=== PATIENT | male | born 1935 | race Caucasian/White ===

== ENCOUNTER 2021-02-08 10:23 | Outpatient (CLI) | payer MEDICARE, BC, MEDICAID, SELFPAY ==
--- NOTE | ~2021-02-08 | MR_ITS ---
EXAMINATION: MR lumbar spine wo con EXAM DATE: 02/08/2021 12:07 INDICATION: Lumbar Radiculopathy. Chronic low back pain. TECHNIQUE: Multi-sequential, multiplanar MR images of the lumbar spine were obtained without contrast . Sagittal T1, T2, T2 fat saturation images. Axial T2 weighted images. There is no prior study for comparison. FINDINGS: There is mild to moderate thoracolumbar levoscoliosis. Paraspinal soft tissue is unremarkab le. Moderate diffuse lumbar disc disease. There is 3 mm anterolisthesis L5 on S1. There are no suspic ious marrow signal abnormalities. Level by level evaluation: T12-L1: Disc does not extend beyond the endplate margin. Facet arthropathy: Mild. Neural foraminal stenosis: No stenosis. Central canal stenosis: No stenosis. L1-L2: There is a mild diffuse disc bulge. Facet arthropathy: Mild. Neural foraminal stenosis: No stenosis. Central canal stenosis: No stenosis. L2-L3: There is a moderate diffuse disc bulge. Facet arthropathy: Moderate. Neural foraminal stenosis: Moderate right, mild left. Central canal stenosis: Mild to moderate, right lateral recess narrowing. L3-L4: There is a large diffuse disc bulge. Facet arthropathy: Severe . Ligamentum flavum enlargement. Neural foraminal stenosis: Moderate right, mild to moderate left. Central canal stenosis: Moderate to severe. L4-L5: There is a large diffuse disc bulge. Facet arthropathy: Severe . Ligamentum flavum enlargement. Neural foraminal stenosis: Moderate to severe left, moderate right. Central canal stenosis: Severe. L5-S1: There is a large diffuse disc bulge. Facet arthropathy: Severe left, moderate right. Neural foraminal stenosis: Moderate to severe left, mild to moderate right. Central canal stenosis: Moderate. IMPRESSION: 1. L4-5 severe, L3-4 moderate to severe central canal stenosis. 2. Mild/moderate thoracolumbar levoscoliosis. 3. Spondylosis as above. Reviewed, dictated and finalized at location A. IO RECEPTIONIST
== END 2021-02-08 10:24 | disposition home or self-care (01) ==
PROVIDERS: PCP Family Medicine; Visit Provider Nurse Practitioner Adult Health
DX: M47.26 Other spondylosis with radiculopathy, lumbar region (principal)
CPT/HCPCS: 72148

== ENCOUNTER 2021-02-16 14:31 | Emergency (ER) | payer MEDICARE, BC, MEDICAID, SELFPAY ==
--- NOTE | ~2021-02-16 | CT_ITS ---
EXAMINATION: CT brain wo con DATE: 02/16/2021 15:28 INDICATION: Head injury. Headache. TECHNIQUE: Computed tomography (CT) of the head was performed without intravenous contrast. The mA wa s adjusted according to patient size. Iterative reconstruction technique was employed. The dose-lengt h product was 605.33 mGy-cm. COMPARISON: None FINDINGS: There are scattered areas of low attenuation in the cerebral white matter, which is within normal limits for the patient's age. There is no intracranial hemorrhage, acute infarction, or abnorm al intracranial mass lesion. The ventricles are normal in size. There is mild mucosal thickening in t he paranasal sinuses. There are likely changes of ocular lens replacement surgeries. The mastoid air cells are normal. IMPRESSION: 1. Normal aging brain. Reviewed, dictated and finalized at location A. GER PRODUCT MARKETING IMPRESSION: 1. Normal aging brain.
--- NOTE | ~2021-02-16 | XR_ITS ---
EXAMINATION: XR ribs LT 2V w CXR 2V DATE: 02/16/2021 15:39 INDICATION: Fall. TECHNIQUE: Frontal and lateral views of the chest and 2 views on 3 radiographs of the left ribs were obtained. COMPARISON: None. FINDINGS: CHEST TWO VIEWS: Calcified left lung nodules are consistent with old granulomatous disease. No pleura l effusion or pneumothorax. The heart size is normal. LEFT RIBS: There are old healed fractures of left seventh-ninth ribs. IMPRESSION: 1. No acute rib fracture. Reviewed, dictated and finalized at location A. ER SORTER MACHINE IMPRESSION: 1. No acute rib fracture.
[2021-02-16 14:28] VITALS: BP 110/62; PULSE 69; RESP 17; TEMP 36.4; O2SAT 96
--- NOTE | 2021-02-16 16:25 | ED.GENADULT ---
HPI - General Adult General Chief complaint: Head Injury Stated complaint: FALL Time Seen by Provider: 02/16/21 14:34 Source: patient Mode of arrival: EMS Limitations: no limitations History of Present Illness HPI narrative: 85-year-old senior care resident with a history of dementia, chronic atrial fibrillation was brought in with complaints of fall. Patient states that he was trying to go to the bathroom after afternoon nap without his walker lost his balance and fell backwards. He denies any loss of consciousness. Complains of small laceration on the left side of the face. He denies any chest pain shortness of breath, palpitations prior to the fall. Onset (ago): minute(s) (45) Location: head Severity: mild Associated symptoms: denies other symptoms Related Data Home Medications Medication Instructions Recorded Confirmed apixaban 5 mg tablet 5 mg PO BID 01/15/21 01/15/21 aspirin 81 mg capsule 81 mg PO DAILY 01/15/21 01/15/21 atorvastatin 20 mg tablet 20 mg PO QHS 01/15/21 01/15/21 budesonide 0.5 mg/2 mL suspension 0.5 mg INHALATION DAILY 01/15/21 01/15/21 for nebulization carbidopa 25 mg-levodopa 100 mg 2 tablet PO QID tablet 01/15/21 01/15/21 tablet cetirizine 10 mg tablet 10 mg PO DAILY PRN 01/15/21 01/15/21 docusate sodium 100 mg capsule 100 mg PO BID 01/15/21 01/15/21 donepezil 5 mg tablet 5 mg PO BID tablet 01/15/21 01/15/21 fluticasone propionate 50 2 spray INTRANASAL DAILY PRN 01/15/21 01/15/21 mcg/actuation nasal spray,suspension furosemide 40 mg tablet 40 mg PO BID 01/15/21 01/15/21 ipratropium 0.5 mg-albuterol 3 mg 3 ml INHALATION Q6H PRN 01/15/21 01/15/21 (2.5 mg base)/3 mL nebulization soln levothyroxine 75 mcg tablet 75 mcg PO DAILY 01/15/21 01/15/21 mecobalamin (vitamin B12) 1,000 1,000 mcg SUBLINGUAL DAILY 01/15/21 01/15/21 mcg disintegrating tablet,sublingual metolazone 5 mg tablet 5 mg PO 3XW tablet 01/15/21 01/15/21 metoprolol tartrate 25 mg tablet 12.5 mg PO BID tablet 01/15/21 01/15/21 multivitamin 1 tablet PO DAILY 01/15/21 01/15/21 omeprazole 40 mg capsule,delayed 40 mg PO BID 01/15/21 01/15/21 release potassium chloride 10 mEq 10 meq PO DAILY 01/15/21 01/15/21 capsule,extended release pramipexole 0.125 mg tablet 0.125 mg PO QHS 01/15/21 01/15/21 sulfamethoxazole 800 1 tablet PO Q12H 01/15/21 01/15/21 mg-trimethoprim 160 mg tablet trazodone 50 mg tablet 50 mg PO QHS PRN 01/15/21 01/15/21 Allergies Allergy/AdvReac Type Severity Reaction Status Date / Time diphenhydramine Allergy Mild Unknown Verified 02/16/21 14:38 [From Benadryl] metoclopramide [From Reglan] Allergy Mild Unknown Verified 02/16/21 14:38 prochlorperazine Allergy Mild Unknown Verified 02/16/21 14:38 [From Compazine] terbinafine [From Lamisil] Allergy Mild Unknown Verified 02/16/21 14:38 Tetanus Vaccines and Toxoid Allergy Mild Unknown Verified 02/16/21 14:38 Review of Systems Review of Systems: All systems reviewed & are unremarkable except as noted in HPI and below Constitutional: Constitutional: Reports no additional constitutional complaints Eyes: Eyes: Reports no additional eye complaints ENT: Reports system reviewed and no additional complaints, except as documented Cardiovascular: Cardiovascular: Reports no additional cardiovascular complaints Respiratory: Respiratory: Reports no additional respiratory complaints Gastrointestinal: Gastrointestinal: Reports no additional gastrointestinal complaints Musculoskeletal: Musculoskeletal: Reports no additional musculoskeletal complaints Integumentary/Breasts: Skin/Breast: Reports system reviewed and no additional complaints, except as docu PMFSH Past Medical History Medical History Arthritis Atrial fibrillation Chronic back pain Chronic hypoxemic respiratory failure Congestive heart failure COPD (chronic obstructive pulmonary disease) Dementia Environmental allergies
[2021-02-16 17:06] VITALS: BP 124/84; PULSE 80; RESP 16; O2SAT 99
== END 2021-02-16 17:05 ==
PROVIDERS: Emergency Provider Family Medicine; PCP Family Medicine
DX: S09.90XA Unspecified injury of head, initial encounter (principal); S20.223A Contusion of bilateral back wall of thorax, initial encounter; M19.90 Unspecified osteoarthritis, unspecified site; I48.91 Unspecified atrial fibrillation; I50.9 Heart failure, unspecified; J44.9 Chronic obstructive pulmonary disease, unspecified; F03.90 Unspecified dementia, unspecified severity, without behavioral disturbance, psychotic disturbance, mood disturbance, and anxiety; K21.9 Gastro-esophageal reflux disease without esophagitis; I25.2 Old myocardial infarction; E78.5 Hyperlipidemia, unspecified; E03.9 Hypothyroidism, unspecified; Z91.81 History of falling; W01.0XXA Fall on same level from slipping, tripping and stumbling without subsequent striking against object, initial encounter
CPT/HCPCS: 70450; 71046; 71100; 99284

== ENCOUNTER 2021-02-18 08:55 | Outpatient (CLI) | payer MEDICARE, MEDICAID, SELFPAY ==
[2021-02-18 09:22] LABS: Basophils Absolute Auto 0.1 K/mm3 (0.0-0.1); Basophils Percent Auto 0.8 % (0.2-1.2); Eosinophils Absolute Auto 0.1 K/mm3 (0-0.3); Eosinophils Percent Auto 2.3 % (0-4.4); Hemoglobin 11.7 g/dL (14.0-18.0); Immature Granulocyte Absolute 0.02 K/mm3 (0.00-0.031); Immature Granulocyte Percent A 0.3 % (0-0.5); Lymphocytes Absolute Auto 1.55 K/mm3 (0.9-3.2); Lymphocytes Percent Auto 25.2 % (18.3-44.2); Mean Corpuscular HGB Conc 33.4 g/dl (32-36); Mean Corpuscular Hemoglobin 33.1 pg (26-34); Mean Corpuscular Volume 98.9 fl (80-100); Monocytes Absolute Auto 0.7 K/mm3 (0.1-0.6); Neutrophils Absolute Auto 3.7 K/mm3 (1.3-6.7); Neutrophils Percent Auto 59.4 % (45.5-73.1); Platelet Count Result 204 k/mm3 (150-375); Red Blood Count 3.54 M/mm3 (4.6-6.20); Red Cell Distribution Width 13.7 % (11.5-14.5); White Blood Count 6.2 K/mm3 (4.5-10.0)
[2021-02-18 09:31] LABS: Alanine Aminotransferase 6 U/L (4-50); Albumin Level 4.2 g/dL (3.5-5.1); Alkaline Phosphatase 96 U/L (38-126); Anion Gap 7 mmol/L (8-16); Aspartate Amino Transferase 31 U/L (17-59); Bilirubin,Total 0.5 mg/dL (0.2-1.3); Blood Urea Nitrogen 18 mg/dL (9-20); Calcium 9.4 mg/dL (8.4-10.2); Carbon Dioxide 33 mmol/L (22-30); Chloride 92 mmol/L (98-107); Cholesterol 130 mg/dL (0-200); Estimated Glomerular Filt Rate 48; Glucose 96 mg/dL (65-110); HDL Direct 65 mg/dL; Potassium 3.5 mmol/L (3.4-5.0); Sodium 132 mmol/L (137-145); Triglycerides 63 mg/dL (<150)
[2021-02-18 09:43] LABS: LDL Cholesterol Direct 38 mg/dL
[2021-02-18 09:55] LABS: Vitamin D 25 Hydroxy 17.9 ng/mL
[2021-02-18 11:41] LABS: Free T4 Free Thyroxine Reflex 1.16 ng/dL (0.78-2.19)
[2021-02-18 13:25] LABS: Total Triiodothyronine (T3) 1.01 NG/ML (0.97-1.69)
== END 2021-02-18 08:56 | disposition home or self-care (01) ==
PROVIDERS: PCP Family Medicine; Visit Provider Family Medicine
DX: E55.9 Vitamin D deficiency, unspecified (principal); E53.8 Deficiency of other specified B group vitamins; F03.90 Unspecified dementia, unspecified severity, without behavioral disturbance, psychotic disturbance, mood disturbance, and anxiety; G20 Parkinson's disease; I10 Essential (primary) hypertension; E78.5 Hyperlipidemia, unspecified
CPT/HCPCS: 36415; 80053; 80061; 82306; 82607; 84439; 84443; 84480; 85025

== ENCOUNTER 2021-03-07 09:36 | Emergency (ER) | payer MEDICARE, MEDICAID, SELFPAY ==
[2021-03-07] VITALS (21 sets, daily range): BP systolic 94–138; BP diastolic 51–99; PULSE 42–88; RESP 8–19; TEMP 36.4–36.6; O2SAT 95–100
--- NOTE | ~2021-03-07 | CT_ITS ---
EXAMINATION: CT brain wo con DATE: 03/07/2021 12:00 INDICATION: Confusion TECHNIQUE: Computed tomography (CT) of the head was performed without intravenous contrast. The mA wa s adjusted according to patient size. Iterative reconstruction technique was employed. Exam dose: 60 5.33 mGy-cm total exam DLP. COMPARISON: 02/16/2021 CT brain FINDINGS: Prominent bilateral carotid siphon internal carotid artery calcifications and mild left iraida tebral artery calcification are noted. There is nonspecific diminished attenuation cerebral white mat ter, likely due to chronic small vessel ischemic change. No intracranial mass lesion or hemorrhage or cerebrovascular accident is evident. No midline shift or mass effect effect. Normal ventricular size. No subdural or epidural hematoma. No fracture or bone destruction of the cranial vault. Small mucous retention cyst or less likely polyp at the anteromedial base of the right maxillary sinu s and very small probable mucus retention cyst along the medial wall of the left maxillary sinus, min imal mucoperiosteal thickening at the floor of the left maxillary sinus. The paranasal sinuses and ma stoid air cells are otherwise unremarkable. No fracture or bone destruction of the cranial vault. IMPRESSION: Cerebral atherosclerosis and chronic small vessel ischemic changes of cerebral white mat ter No acute intracranial finding Reviewed, dictated and finalized at Location A. Reviewed, dictated and finalized at location A. DENT RESPONSE MANAGER IMPRESSION: Cerebral atherosclerosis and chronic small vessel ischemic changes of cerebral white matter No acute intracranial finding
--- NOTE | ~2021-03-07 | XR_ITS ---
XR chest 1V portable DATE: 03/07/2021 11:07 INDICATION: Confusion TECHNIQUE: Portable upright AP chest on 03/03/2021 1055 hours COMPARISON: 02/16/2021 2 view chest FINDINGS: Cardiomegaly. Aortic calcification. There is evidence of old pulmonary granulomatous diseas e. There is minimal discoid atelectasis or scarring in the left midlung. No pulmonary consolidation, pleural effusion, pulmonary vascular congestion or pneumothorax is evident. Diffuse osteopenia. Resection of the lateral aspect of the left clavicle. IMPRESSION: Cardiomegaly Aortic atherosclerosis No active pulmonary disease Reviewed, dictated and finalized at location A. PREVENTION ENGINEER
--- NOTE | 2021-03-07 10:22 | ED.WEAKNESS ---
HPI - Weakness General Chief complaint: Weakness Stated complaint: possible uti Time Seen by Provider: 03/07/21 10:14 Source: patient and family Limitations: no limitations History of Present Illness HPI Narrative: Patient is 85 years old assisting living brought to the emergency room by his because of confusion over the last 2 to 3 days with unsteady gait. Patient had similar symptoms 2 weeks ago, had a diagnosis of urinary tract infection started on Cipro got better within 2 to 3 days. History of COPD on chronic oxygen 3 L. Patient is fully vaccinated and boosted for COVID-19. History of dementia. His believes that his dementia is worse over the last 2 to 3 days. Currently patient is awake, alert and oriented x3, denying any symptoms. History of COPD, parkinsonism, hyperlipidemia, patient does not smoke or drink or uses drugs, patient is full code, patient on Eliquis for deep vein thrombosis. Related Data Home Medications Medication Instructions Recorded Confirmed apixaban 5 mg tablet 5 mg PO BID 01/15/21 02/17/21 aspirin 81 mg capsule 81 mg PO DAILY 01/15/21 02/17/21 atorvastatin 20 mg tablet 20 mg PO QHS 01/15/21 02/17/21 budesonide 0.5 mg/2 mL suspension 0.5 mg INHALATION DAILY 01/15/21 02/17/21 for nebulization carbidopa 25 mg-levodopa 100 mg 2 tablet PO QID tablet 01/15/21 02/17/21 tablet cetirizine 10 mg tablet 10 mg PO DAILY PRN 01/15/21 02/17/21 docusate sodium 100 mg capsule 100 mg PO BID 01/15/21 02/17/21 donepezil 5 mg tablet 5 mg PO BID tablet 01/15/21 02/17/21 fluticasone propionate 50 2 spray INTRANASAL DAILY PRN 01/15/21 02/17/21 mcg/actuation nasal spray,suspension furosemide 40 mg tablet 40 mg PO BID 01/15/21 02/17/21 ipratropium 0.5 mg-albuterol 3 mg 3 ml INHALATION Q6H PRN 01/15/21 02/17/21 (2.5 mg base)/3 mL nebulization soln levothyroxine 75 mcg tablet 75 mcg PO DAILY 01/15/21 02/17/21 mecobalamin (vitamin B12) 1,000 1,000 mcg SUBLINGUAL DAILY 01/15/21 02/17/21 mcg disintegrating tablet,sublingual metoprolol tartrate 25 mg tablet 12.5 mg PO BID tablet 01/15/21 02/17/21 multivitamin 1 tablet PO DAILY 01/15/21 02/17/21 omeprazole 40 mg capsule,delayed 40 mg PO BID 01/15/21 02/17/21 release potassium chloride 10 mEq 10 meq PO DAILY 01/15/21 02/17/21 capsule,extended release pramipexole 0.125 mg tablet 0.125 mg PO QHS 01/15/21 02/17/21 sulfamethoxazole 800 1 tablet PO Q12H 01/15/21 02/17/21 mg-trimethoprim 160 mg tablet trazodone 50 mg tablet 50 mg PO QHS PRN 01/15/21 02/17/21 Allergies Allergy/AdvReac Type Severity Reaction Status Date / Time diphenhydramine Allergy Mild Unknown Verified 02/17/21 11:10 [From Benadryl] metoclopramide [From Reglan] Allergy Mild Unknown Verified 02/17/21 11:10 prochlorperazine Allergy Mild Unknown Verified 02/17/21 11:10 [From Compazine] terbinafine [From Lamisil] Allergy Mild Unknown Verified 02/17/21 11:10 Tetanus Vaccines and Toxoid Allergy Mild Unknown Verified 02/17/21 11:10 Review of Systems Review of Systems: CONSTITUTIONAL: Denies fever, chills, or sweats. EYES: Denies visual changes, redness, or discharge. ENT: Denies rhinorrhea, congestion, sore throat, or otalgia. CARDIOVASCULAR: Denies chest pain, palpitations, or edema. RESPIRATORY: Denies cough or dyspnea. GASTROINTESTINAL: Denies abdominal pain, nausea, vomiting, or diarrhea. GENITOURINARY: Denies dysuria or hematuria. SKIN: Denies rash or itching. MUSCULOSKELETAL: Denies back pain, joint pain, or myalgia. NEUROLOGIC: Denies headache, numbness, or weakness. PSYCHIATRIC: Denies anxiety or depression. [facility] Past Medical History Medical History Arthritis Atrial fibrillation Chronic back pain Chronic hypoxemic respiratory failure Congestive heart failure COPD (chronic obstructive pulmonary disease) Dementia Environmental allergies GERD (gastroesophageal reflux disease) Heart attack Hyperlipidemia Hypo
--- NOTE | 2021-03-07 10:29 | ECG_ITS ---
Measurements Intervals [place] Rate: 56 P: 207 ND: 178 QRS: -40 QRSD: 156 T: 12 QT: 485 QTc: 470 Interpretive Statements SINUS BRADYCARDIA WITH SINUS ARRHYTHMIA WITH FIRST DEGREE AV BLOCK LEFT AXIS DEVIATION RIGHT BUNDLE BRANCH BLOCK BASELINE ARTIFACT- I, II, III, AVR, AVL, AVF ABNORMAL ECG Electronically Signed On 03-07-2021 16:54:15 LAPELER by Stevo Cho D.O.
[2021-03-07 11:29] LABS: Base Excess ABG 6.6 mEq/l (+/-2.0); HCO3 ABG 32.1 mEq/l (22.0-26.0); PCO2 ABG 49.4 mmHg (35.0-45.0); PO2 ABG 130.5 mmHg (80.0-100.0)
[2021-03-07 11:30] LABS: Alveolar/Arterial O2 Gradient 39.9 mmHg; Oxygen Content ABG 17.3 %vol (16.0-22.0); Oxygen Saturation ABG 98.6 % (95.0-100.0); Total Hemoglobin 12.5 g/dL (12.0-18.0)
[2021-03-07 11:31] LABS: Device NASAL CANNULA; Fractional Inspired Oxygen 32 %; Modified Allen's Test Pass; PO2 FiO2 Ratio Arterial Blood 4.08 %; Site Drawn LEFT RADIAL
[2021-03-07 11:47] LABS: Add Urine Microscopic? YES; Appearance Urine Clear (Clear); Bilirubin Urine Negative (Negative); Blood Urine 1+ (Negative); Color Urine Yellow (Yellow); Glucose Urine UA Negative (Negative); Hyaline Casts Urine 20-29 /lpf; Ketones Urine Negative (Negative); Leukocyte Esterase Ur Negative LEU/UL (Negative); Mucus Urine Rare /lpf; Nitrate Urine Negative (Negative); Protein Urine Negative (Negative); Specific Grav Ur 1.012 (1.001-1.035); Squamous Epithelial Cell Urine Rare /hpf (Few); Urobilinogen Urine Negative mg/dL (<2.0); WBC Urine 0-3 /hpf
[2021-03-07 11:52] LABS: Basophils Absolute Auto 0.1 K/mm3 (0.0-0.1); Basophils Percent Auto 0.5 % (0.2-1.2); Eosinophils Absolute Auto 0.2 K/mm3 (0-0.3); Eosinophils Percent Auto 1.6 % (0-4.4); Hematocrit 36.9 % (42.0-52.0); Hemoglobin 12.2 g/dL (14.0-18.0); Immature Granulocyte Absolute 0.03 K/mm3 (0.00-0.031); Immature Granulocyte Percent A 0.3 % (0-0.5); Lymphocytes Absolute Auto 2.19 K/mm3 (0.9-3.2); Lymphocytes Percent Auto 21.6 % (18.3-44.2); Mean Corpuscular HGB Conc 33.1 g/dl (32-36); Mean Corpuscular Hemoglobin 32.9 pg (26-34); Mean Corpuscular Volume 99.5 fl (80-100); Mean Platelet Volume 9.7 fl (7.4-10.4); Monocytes Absolute Auto 0.9 K/mm3 (0.1-0.6); Monocytes Percent Auto 8.7 % (2.6-8.5); Neutrophils Absolute Auto 6.8 K/mm3 (1.3-6.7); Neutrophils Percent Auto 67.3 % (45.5-73.1); Platelet Count Result 213 k/mm3 (150-375); Red Blood Count 3.71 M/mm3 (4.6-6.20); Red Cell Distribution Width 14.3 % (11.5-14.5); White Blood Count 10.1 K/mm3 (4.5-10.0)
[2021-03-07 11:54] LABS: Glucose Point of Care 76 mg/dl (65-105)
[2021-03-07 12:00] LABS: INR 1.3; Prothrombin Time 15.6 Seconds (11.1-14.7)
[2021-03-07 12:01] LABS: Partial Thromboplastin Time 30.3 SECONDS (22.3-36.8)
[2021-03-07 12:03] LABS: Alanine Aminotransferase 6 U/L (4-50); Albumin Level 4.3 g/dL (3.5-5.1); Alkaline Phosphatase 98 U/L (38-126); Anion Gap 5 mmol/L (8-16); Aspartate Amino Transferase 31 U/L (17-59); Bilirubin,Total 0.6 mg/dL (0.2-1.3); Blood Urea Nitrogen 30 mg/dL (9-20); Calcium 9.8 mg/dL (8.4-10.2); Carbon Dioxide 37 mmol/L (22-30); Chloride 90 mmol/L (98-107); Estimated CRCL calculation 30 ml/min; Estimated Glomerular Filt Rate 41; Glucose 100 mg/dL (65-110); Potassium 3.7 mmol/L (3.4-5.0); Sodium 132 mmol/L (137-145)
[2021-03-07 12:14] LABS: Troponin I < 0.012 ng/mL (0.000-0.034)
== END 2021-03-07 13:50 | disposition home or self-care (01) ==
PROVIDERS: Emergency Provider Emergency Medicine; PCP Family Medicine
DX: R41.0 Disorientation, unspecified (principal); I48.91 Unspecified atrial fibrillation; I50.9 Heart failure, unspecified; J44.9 Chronic obstructive pulmonary disease, unspecified; F03.90 Unspecified dementia, unspecified severity, without behavioral disturbance, psychotic disturbance, mood disturbance, and anxiety; E78.5 Hyperlipidemia, unspecified; E03.9 Hypothyroidism, unspecified; Z79.82 Long term (current) use of aspirin
CPT/HCPCS: 36415; 36600; 51701; 70450; 71045; 80053; 81001; 82805; 82948; 84443; 84484; 85025; 85610; 85730; 93005; 99284; J7030

== ENCOUNTER 2021-03-11 13:57 | Inpatient (IN) | payer MEDICARE, MEDICAID, SELFPAY ==
[2021-03-11] VITALS (8 sets, daily range): BP systolic 71–128; BP diastolic 39–61; PULSE 40–82; RESP 16–21; TEMP 36.6; O2SAT 99–100
--- NOTE | ~2021-03-11 | XR_ITS ---
EXAMINATION: XR chest 1V portable INDICATION: COVID 19 TECHNIQUE: Portable AP chest at 1812 hours COMPARISON: 03/07/2021 FINDINGS: There are patchy opacities throughout all lung zones. No pleural effusion or pneumothorax i s identified. The cardiomediastinal silhouette is stable. Shortening of the left distal clavicle may reflect resection. IMPRESSION: 1. Diffuse lung disease, likely COVID 19 pneumonia given the clinical history. Reviewed, dictated and finalized at location F. FICIAL INTELLIGENCE SPECIALIST
--- NOTE | ~2021-03-11 | CT_ITS ---
EXAMINATION: CT abdomen pelvis w con DATE: 03/11/2021 16:31 INDICATION: Infection TECHNIQUE: Computed tomography (CT) of the abdomen and pelvis was performed with 100 mL Omnipaque-350 intravenous contrast. Automated exposure control and iterative reconstruction technique were employe d. The dose-length product was 1020.75 mGy-cm. COMPARISON: None FINDINGS: Mild streaky atelectasis along with more patchy groundglass opacities suspicious for aspiration or pn eumonia at the basilar aspect of the bilateral lower lobes. There is scattered mucous plugging involv ing multiple basilar bronchi of the lower lobes. Mild cardiomegaly. Lipomatous hypertrophy of the atr ial septum. Atherosclerotic coronary artery calcific location. No pericardial or pleural effusion. 1. 3 similar cyst in the left hepatic lobe. Small splenic desiccation consistent with old granulomatous disease. Gallbladder and bilateral adrenal glands are normal. Diffuse mild to moderate fatty atrophy of the pancreas. 5 mm nonobstructing stone at a lower pole calyx of the right kidney. 7 mm stone along the lateral mar gin of the distal right ureter, unclear whether this represents a nonobstructing ureteral stone or an d immediately adjacent phlebolith. A couple subcentimeter low-attenuation right renal cyst. Left kidn ey is horizontally oriented in the left hemipelvis with partially duplicated renal collecting system extending to a single left-sided ureter. There is also a triplicated vascular supply to the left kidn ey with an artery and vein supplying the more cephalad and left-sided moiety extending to the aorta a nd a retroaortic renal vein near the level of the right renal artery and vein and the more inferior a nd right-sided left renal moiety with a pair of renal arteries and veins, one each extending to the c audal aspect of the aorta and inferior vena cava as well as additional artery and veins extending to the left common iliac artery and vein. There is moderate colonic diverticulosis with a sigmoid predominance. There is no adjacent inflammat ory change to suggest diverticulitis. No bowel obstruction. Normal appendix. No free intraperitoneal gas or fluid. No pathologically enlarged abdominal or pelvic lymphadenopathy. Mild lumbar levoscolios is with moderate spondylosis. IMPRESSION: 1. Mucous plugging and mild patchy groundglass opacities in the bilateral lower lobes concerning for pneumonia. 2. 5 mm nonobstructing right renal stone and additional 7 mm calcification along one side of the dist almost right ureter. Is upper limits represents a nonobstructing ureteral stone within the ureter or a phlebolith immediately along side the ureter. 3. 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 4. Diverticulosis. Reviewed, dictated and finalized at location A. NG BOOKKEEPER IMPRESSION: 1. Mucous plugging and mild patchy groundglass opacities in the bilateral lower lobes concerning for pneumonia. 2. 5 mm nonobstructing right renal stone and additional 7 mm calcification lynn g one side of the distalmost right ureter. Is upper limits represents a nonobst ructing ureteral stone within the ureter or a phlebolith immediately along side the ureter. 3. Developmental anomaly of the left kidney which is positioned caudal in the l eft pelvis and with partially duplicated renal collecting system and triplicate d vascular supply. 4. Diverticulosis.
--- NOTE | ~2021-03-11 | CT_ITS ---
EXAMINATION: CT brain wo con DATE: 03/11/2021 14:38 INDICATION: Head injury. TECHNIQUE: Computed tomography (CT) of the head was performed without intravenous contrast. The mA wa s adjusted according to patient size. Iterative reconstruction technique was employed. The dose-lengt h product was 605.33 mGy-cm. COMPARISON: Head CT 03/07/2021 FINDINGS: There are scattered areas of low attenuation in the cerebral white matter, which is within normal limits for the patient's age. There is no intracranial hemorrhage, acute infarction, or abnorm al intracranial mass lesion. The ventricles are normal in size. 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 There is mild mucosal thickening in the paranasal sinuses. The mastoid air cells are normal. IMPRESSION: 1. Normal aging brain. Reviewed, dictated and finalized at location B. NISTRATIVE SERVICES MANAGER IMPRESSION: 1. Normal aging brain.
--- NOTE | 2021-03-11 14:01 | ECG_ITS ---
Measurements Intervals [place] Rate: 45 P: 29 SD: 198 QRS: -33 QRSD: 153 T: 2 QT: 427 QTc: 369 Interpretive Statements SINUS BRADYCARDIA LEFT AXIS DEVIATION BORDERLINE AV CONDUCTION DELAY RIGHT BUNDLE BRANCH BLOCK ABNORMAL ECG Electronically Signed On 03-11-2021 14:46:29 HISTORY INSTRUCTOR by Stevo Cho D.O.
[2021-03-11 14:19] LABS: Glucose Point of Care 106 mg/dl (65-105)
--- NOTE | 2021-03-11 14:21 | ED.GENADULT ---
HPI - General Adult General Chief complaint: Weakness Stated complaint: AMS,WEAKNESS Time Seen by Provider: 03/11/21 14:00 History of Present Illness HPI narrative: 85-year-old male with history of hyperlipidemia, GERD, hypothyroidism, COPD, chronic hypoxemia on 3 L of oxygen, CHF, atrial fibrillation, Parkinson's, dementia, UTI presents emerged department for evaluation of altered mental status. Patient lives at an assisted living with his , patient states he has felt weak over the last few days. This morning patient was walking to the cafeteria and became dizzy and lightheaded causing him to need assistance going to the ground. Patient states he did hit his head but denies any significant trauma. No martin or injuries from the fall are noted. Patient is taking Eliquis. On arrival to the [facility] patient was hypotensive but is alert and appropriate. Is vaccinated and boostered. Related Data Home Medications Medication Instructions Recorded Confirmed apixaban 5 mg tablet 5 mg PO BID 01/15/21 02/17/21 aspirin 81 mg capsule 81 mg PO DAILY 01/15/21 02/17/21 atorvastatin 20 mg tablet 20 mg PO QHS 01/15/21 02/17/21 budesonide 0.5 mg/2 mL suspension 0.5 mg INHALATION DAILY 01/15/21 02/17/21 for nebulization carbidopa 25 mg-levodopa 100 mg 2 tablet PO QID tablet 01/15/21 02/17/21 tablet cetirizine 10 mg tablet 10 mg PO DAILY PRN 01/15/21 02/17/21 docusate sodium 100 mg capsule 100 mg PO BID 01/15/21 02/17/21 donepezil 5 mg tablet 5 mg PO BID tablet 01/15/21 02/17/21 fluticasone propionate 50 2 spray INTRANASAL DAILY PRN 01/15/21 02/17/21 mcg/actuation nasal spray,suspension furosemide 40 mg tablet 40 mg PO BID 01/15/21 02/17/21 ipratropium 0.5 mg-albuterol 3 mg 3 ml INHALATION Q6H PRN 01/15/21 02/17/21 (2.5 mg base)/3 mL nebulization soln levothyroxine 75 mcg tablet 75 mcg PO DAILY 01/15/21 02/17/21 mecobalamin (vitamin B12) 1,000 1,000 mcg SUBLINGUAL DAILY 01/15/21 02/17/21 mcg disintegrating tablet,sublingual metoprolol tartrate 25 mg tablet 12.5 mg PO BID tablet 01/15/21 02/17/21 multivitamin 1 tablet PO DAILY 01/15/21 02/17/21 omeprazole 40 mg capsule,delayed 40 mg PO BID 01/15/21 02/17/21 release potassium chloride 10 mEq 10 meq PO DAILY 01/15/21 02/17/21 capsule,extended release pramipexole 0.125 mg tablet 0.125 mg PO QHS 01/15/21 02/17/21 sulfamethoxazole 800 1 tablet PO Q12H 01/15/21 02/17/21 mg-trimethoprim 160 mg tablet trazodone 50 mg tablet 50 mg PO QHS PRN 01/15/21 02/17/21 Allergies Allergy/AdvReac Type Severity Reaction Status Date / Time diphenhydramine Allergy Mild Unknown Verified 02/17/21 11:10 [From Benadryl] metoclopramide [From Reglan] Allergy Mild Unknown Verified 02/17/21 11:10 prochlorperazine Allergy Mild Unknown Verified 02/17/21 11:10 [From Compazine] terbinafine [From Lamisil] Allergy Mild Unknown Verified 02/17/21 11:10 Tetanus Vaccines and Toxoid Allergy Mild Unknown Verified 02/17/21 11:10 Review of Systems Review of Systems: CONSTITUTIONAL: Increased generalized weakness EYES: Denies visual changes, redness, or discharge. ENT: Denies rhinorrhea, congestion, sore throat, or otalgia. CARDIOVASCULAR: Denies chest pain, palpitations, or edema. RESPIRATORY: Denies cough or dyspnea. GASTROINTESTINAL: Denies abdominal pain, nausea, vomiting, or diarrhea. GENITOURINARY: Denies dysuria or hematuria. SKIN: Denies rash or itching. MUSCULOSKELETAL: Denies back pain, joint pain, or myalgia. NEUROLOGIC: Denies headache, numbness, or weakness. PSYCHIATRIC: Denies anxiety or depression. [facility] Past Medical History Medical History (Updated 03/11/21 @ 17:54 by Maverick Coffman MD) Arthritis Atrial fibrillation Chronic back pain Chronic hypoxemic respiratory failure Chronic kidney disease, stage 3b Chronic respiratory failure with hypoxia, on home O2 therapy Congestive heart failure COPD (chronic obstructive pulmonary disease) Dementia Environmental allergies
[2021-03-11 14:28] LABS: Basophils Absolute Auto 0.1 K/mm3 (0.0-0.1); Basophils Percent Auto 0.3 % (0.2-1.2); Hematocrit 33.8 % (42.0-52.0); Hemoglobin 11.3 g/dL (14.0-18.0); Immature Granulocyte Absolute 0.14 K/mm3 (0.00-0.031); Immature Granulocyte Percent A 0.8 % (0-0.5); Lymphocytes Absolute Auto 1.31 K/mm3 (0.9-3.2); Lymphocytes Percent Auto 7.2 % (18.3-44.2); Mean Corpuscular HGB Conc 33.4 g/dl (32-36); Mean Corpuscular Hemoglobin 33.6 pg (26-34); Mean Corpuscular Volume 100.6 fl (80-100); Mean Platelet Volume 10.1 fl (7.4-10.4); Monocytes Absolute Auto 2.5 K/mm3 (0.1-0.6); Monocytes Percent Auto 13.5 % (2.6-8.5); Neutrophils Absolute Auto 14.3 K/mm3 (1.3-6.7); Neutrophils Percent Auto 78.2 % (45.5-73.1); Platelet Count Result 178 k/mm3 (150-375); Red Blood Count 3.36 M/mm3 (4.6-6.20); Red Cell Distribution Width 14.5 % (11.5-14.5); White Blood Count 18.3 K/mm3 (4.5-10.0)
[2021-03-11 14:39] LABS: Alanine Aminotransferase 9 U/L (4-50); Albumin Level 3.8 g/dL (3.5-5.1); Alkaline Phosphatase 96 U/L (38-126); Anion Gap 9 mmol/L (8-16); Aspartate Amino Transferase 28 U/L (17-59); Blood Urea Nitrogen 35 mg/dL (9-20); Calcium 9.6 mg/dL (8.4-10.2); Carbon Dioxide 31 mmol/L (22-30); Chloride 96 mmol/L (98-107); Estimated CRCL calculation 32 ml/min; Estimated Glomerular Filt Rate 41; Glucose 127 mg/dL (65-110); Potassium 3.5 mmol/L (3.4-5.0); Sodium 136 mmol/L (137-145)
[2021-03-11 14:42] LABS: INR 1.5; Prothrombin Time 17.9 Seconds (11.1-14.7)
--- NOTE | 2021-03-11 14:52 | PC.NURSE ---
Patient bladder scanned at this time. Patient has 140MLs in bladder according to the scan. Will continue to monitor.
[2021-03-11 15:00] LABS: Troponin I 0.046 ng/mL (0.000-0.034)
[2021-03-11 16:06] LABS: Add Urine Microscopic? YES; Appearance Urine Clear (Clear); Bacteria Urine Trace /hpf; Bilirubin Urine Negative (Negative); Blood Urine Negative (Negative); Color Urine Yellow (Yellow); Glucose Urine UA Negative (Negative); Ketones Urine Negative (Negative); Leukocyte Esterase Ur 2+ LEU/UL (Negative); Mucus Urine Rare /lpf; Nitrate Urine Negative (Negative); Protein Urine Negative (Negative); Specific Grav Ur 1.006 (1.001-1.035); Squamous Epithelial Cell Urine Rare /hpf (Few); Urobilinogen Urine Negative mg/dL (<2.0); WBC Urine 51-75 /hpf
--- NOTE | 2021-03-11 17:03 | PM.IMHP ---
H&P: HPI History of Present Illness Date/Time: 03/11/21 17:03 Chief Complaint: Ground level fall Narrative: 85-year-old male with a past medical history of dementia, Parkinson's, chronic kidney disease, COPD, CHF, atrial fibrillation on Eliquis and chronic hypoxic respiratory failure who presented to the ER via EMS from assisted living after having a ground level fall. The patient reports that for the last several days he has been having intermittent episodes of confusion and increased weakness. He reports that today his was trying to get him to go down to the cafeteria for lunch and assisted living facility. He stated that he had a little bit of trouble standing up and then once he got up he was weak and lightheaded. He had only walked a few feet when he required assistance to be eased to the ground. He did hit his head but did not have any significant head trauma and denies any headaches. He came into the ER on the for the symptoms but his symptoms did not provide any direction as to cause of symptoms. The patient self reports that he has been having significant postnasal drip, rhinorrhea and nasal congestion. However, it sounds like the symptoms have been ongoing for about 6 weeks. The patient does have a history of dementia but is a fairly good historian is currently alert oriented x4. It sounds as if he has had intermittent episodes of coughing that can become protracted. However he denies any current coughing. The patient received a fluid bolus in route to the hospital at on arrival to the ER he was hypotensive. The patient received a bolus of fluid from EMS and had resolution of his hypotension. He denies any fevers, nausea, vomiting or changes in bowel habits. He does have chronic weak urinary stream and difficulty stopping his urinary stream at times. He denies any dysuria. He has pyuria and trace bacteria on his UA. His CT of his abdomen pelvis demonstrated pyuria with a right ureteral stone 7 mm nonobstructing. He denies any chest pain, palpitations, or shortness of breath. However his troponin was elevated in the ER were has been negative a few days ago. In the ER was noted to have occasional PVCs with episodes of bradycardia. He has fully vaccinated against COVID-19. However his chest x-ray demonstrated diffuse lung disease likely due to COVID pneumonia. The patient is fully vaccinated against COVID-19 and has had his booster. Review of Systems Review of Systems: 12 systems were reviewed with pertinent positives and negatives per HPI. Except as documented in the HPI, all other systems were reviewed and are negative. [facility] Past Medical History Medical History (Updated 03/12/21 @ 01:14 by Elsa Issa DO) Arthritis Atrial fibrillation Chronic back pain Chronic kidney disease, stage 3b Chronic respiratory failure with hypoxia, on home O2 therapy Congestive heart failure COPD (chronic obstructive pulmonary disease) Dementia Environmental allergies GERD (gastroesophageal reflux disease) Heart attack Hyperlipidemia Hypothyroidism Insomnia Parkinson disease Paroxysmal atrial fibrillation Restless leg syndrome Vitamin B12 deficiency B12 level normal 02/18/2021 Surgical History Surgical History (Updated 03/12/21 @ 01:12 by Elsa Issa DO) History of bilateral inguinal hernia repair History of colonoscopy with polypectomy History of repair of left rotator cuff History of repair of right rotator cuff History of total bilateral knee replacement Status post cataract extraction of both eyes with insertion of intraocular lens Family History Family History Mother Stomach cancer Father Alzheimer disease Sibling Diabetes mellitus Social History Social History (Updated 03/12/21 @ 01:14 by Elsa Issa DO) Social History: The patient lives at assisted living with his of 42 years. They have 1 son and 1 daughter. 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
[2021-03-11 17:26] LABS: EDCOVIDSCREEN Positive (Negative)
[2021-03-11] MEDS: REMDESIVIR 200 MG/NS 250 ML 200 MG/250 ML BAG 250 MG IVPB (18:15)
[2021-03-11 18:38] LABS: Troponin I 0.044 ng/mL (0.000-0.034)
[2021-03-11] MEDS: SODIUM CHLORIDE 0.9% IV 1,000 ML 100 ML IV CONT (20:39)
[2021-03-11 21:08] LABS: Troponin I 0.035 ng/mL (0.000-0.034)
--- NOTE | 2021-03-11 22:28 | PCRCNOTE ---
medication not available for therapist to give at 2000
--- NOTE | 2021-03-11 23:09 | PC.NURSE ---
rec'd pt into room 10 from room 22. report from nurse alan
[2021-03-12] VITALS (14 sets, daily range): BP systolic 100–128; BP diastolic 46–64; PULSE 62–80; RESP 15–20; TEMP 36.1–36.7; O2SAT 92–100; BMI 32.2
--- NOTE | 2021-03-12 06:02 | ADMGEN ---
This patient, Breezy Cisneros, was admitted to [facility] Surg Room 328-01. Patient/family oriented to hospital policies and general routines including ID bracelet, bed and alarms, visiting hours, pain management, procedures, bathroom and other care routines, personal items, smoking policy, room service/diet, and visiting hours. Information on how to activate the Rapid Response Team has been discussed. Patient/Family are encouraged to report perceived risks to care and to ask questions if they do not understand what they are told or what they should do.
[2021-03-12] MEDS: SODIUM CHLORIDE 0.9% IV 1,000 ML 100 ML IV CONT (06:20)
[2021-03-12 07:35] LABS: Basophils Percent Auto 0.1 % (0.2-1.2); Hematocrit 32.3 % (42.0-52.0); Hemoglobin 10.5 g/dL (14.0-18.0); Immature Granulocyte Absolute 0.15 K/mm3 (0.00-0.031); Lymphocytes Absolute Auto 1.41 K/mm3 (0.9-3.2); Lymphocytes Percent Auto 9.2 % (18.3-44.2); Mean Corpuscular HGB Conc 32.5 g/dl (32-36); Mean Corpuscular Hemoglobin 32.4 pg (26-34); Mean Corpuscular Volume 99.7 fl (80-100); Mean Platelet Volume 9.9 fl (7.4-10.4); Monocytes Absolute Auto 1.6 K/mm3 (0.1-0.6); Monocytes Percent Auto 10.2 % (2.6-8.5); Neutrophils Absolute Auto 12.2 K/mm3 (1.3-6.7); Neutrophils Percent Auto 79.5 % (45.5-73.1); Platelet Count Result 172 k/mm3 (150-375); Red Blood Count 3.24 M/mm3 (4.6-6.20); Red Cell Distribution Width 14.2 % (11.5-14.5); White Blood Count 15.4 K/mm3 (4.5-10.0)
[2021-03-12 07:44] LABS: INR 1.4; Prothrombin Time 17.2 Seconds (11.1-14.7)
[2021-03-12 07:52] LABS: Alanine Aminotransferase 19 U/L (4-50); Anion Gap 8 mmol/L (8-16); Blood Urea Nitrogen 28 mg/dL (9-20); Calcium 8.9 mg/dL (8.4-10.2); Carbon Dioxide 35 mmol/L (22-30); Chloride 95 mmol/L (98-107); Estimated CRCL calculation 42 ml/min; Estimated Glomerular Filt Rate 57; Glucose 138 mg/dL (65-110); Potassium 3.3 mmol/L (3.4-5.0); Sodium 138 mmol/L (137-145)
[2021-03-12] MEDS: POTASSIUM CHLORIDE 20 MEQ TABLET 40 MEQ PO (08:51)
--- NOTE | 2021-03-12 11:40 | PCRCNOTE ---
Window of time for administration has passed. See next scheduled administration.
--- NOTE | 2021-03-12 12:54 | PM.IMPN ---
Progress Note: A&P Assessment and Plan (1) Pneumonia due to COVID-19 virus: Code(s): U07.1 - COVID-19; J12.82 - Pneumonia due to coronavirus disease 2018 Status: Acute Assessment and Plan: +COVID-19. Vaccinated, complete CXR-->diffuse lung disease, likely COVID 19 pneumonia given the clinical history Chronic hypoxic respiratory failure and is on his usual home O Continue Decadron and Remdesivir Continue scheduled albuterol inhalers Could possibly have a secondary bacterial infection contributing to his leukocytosis, continue azithromycin for now Follow BC, SC Monitor Cr, liver enzymes (2) Bacteriuria with pyuria: Code(s): R82.71 - Bacteriuria; R82.81 - Pyuria Status: Acute Assessment and Plan: Leukocytosis 18.3-->15.4 Bacteriuria with pyuria He also has a nonobstructing kidney stone Continue empiric antibiotic therapy with Rocephin Follow cultures (3) Elevated troponin: Code(s): R77.8 - Other specified abnormalities of plasma proteins Status: Acute Assessment and Plan: 0.046-->0.044->0.35, flat trend Suspect 2/2 demand (4) Hypotension: Qualifiers: Hypotension type: other hypotension type Qualified Code(s): I95.89 - Other hypotension Code(s): I95.9 - Hypotension, unspecified Status: Acute (5) Fall from ground level: Code(s): W18.30XA - Fall on same level, unspecified, initial encounter Status: Acute (6) COPD (chronic obstructive pulmonary disease): Qualifiers: COPD type: unspecified COPD Qualified Code(s): J44.9 - Chronic obstructive pulmonary disease, unspecified Code(s): J44.9 - Chronic obstructive pulmonary disease, unspecified Status: Acute Assessment and Plan: No acute exacertbation Follow sputum culture (7) Chronic respiratory failure with hypoxia, on home O2 therapy: Code(s): J96.11 - Chronic respiratory failure with hypoxia; Z99.81 - Dependence on supplemental oxygen Status: Acute Assessment and Plan: On home O2 requirement Titrate to keep sats >92% (8) Hypokalemia: Code(s): E87.6 - Hypokalemia Status: Acute Assessment and Plan: Mild K+ 3.3 40 meq KCL given Monitor Additional Plan Code status: FULL DVT Ppx: Subjective Date/time seen: 03/12/21 12:54 Interval history: Pt seen this a.m.; labs, vs, diagnostic reports reviewed; no acute events overnight; +SOB, WRAY, generalized weakness Review of Systems Review of Systems: All systems reviewed & are unremarkable except as noted in HPI and below Exam Narrative: General: No acute distress, obese HEENT: Mucous membranes are dry, no oral pharyngeal erythema, EOMI Respiratory: No increased work of breathing Cardiovascular: Regular rate, regular rhythm, 2+ bilateral radial pedal pulses Gastrointestinal: Distended, normoactive bowel sounds Skin: Mild pallor, non jaundice Musculoskeletal: No clubbing, cyanosis or edema Neurological: Alert oriented x3, speech is clear, no facial asymmetry Psychiatric: Appropriate mood and affect, pleasant and cooperative Objective Data Vital Signs Vital Signs: Vital Signs - 24 hr 03/11/21 14:07 03/11/21 14:09 03/11/21 14:12 Temperature 36.6 C Pulse Rate 59 L 76 40 L Respiratory Rate 20 Blood Pressure 86/56 L 86/56 L 71/39 L Pulse Oximetry 100 03/11/21 15:00 03/11/21 16:53 03/11/21 18:48 Temperature Pulse Rate 68 82 77 Respiratory Rate 16 16 18 Blood Pressure 96/46 L 108/60 111/61 Pulse Oximetry 99 99 100 03/11/21 19:05 03/11/21 20:00 03/12/21 00:15 Temperature Pulse Rate 70 74 74 Respiratory Rate 21 H 17 Blood Pressure 128/57 L 107/61 Pulse Oximetry 100 98 03/12/21 02:35 03/12/21 03:00 03/12/21 04:00 Temperature 36.5 C Pulse Rate 74 67 66 Respiratory Rate 20 20 Blood Pressure 128/57 L 100/52 L Pulse Oximetry 100 98 100 03/12/21 08:00 03/12/21 08:03 03/12/21 08:30 Temperature 36.1 C
[2021-03-12] MEDS: ALBUTEROL SULFATE (*SP) INHALER 2 PUFF INHALATION ×2 (15:06→22:00)
[2021-03-12] MEDS: REMDESIVIR 100 MG/NS 250 ML 100 MG/250 ML BAG 250 MG IVPB (21:59)
[2021-03-12] MEDS: DORNASE ALFA INH SOLN 1 MG/ML 2.5 ML AMP 2.5 MG INHALATION (22:00)
[2021-03-13] VITALS (17 sets, daily range): BP systolic 108–128; BP diastolic 54–62; PULSE 61–87; RESP 17–20; TEMP 36.1–36.3; O2SAT 91–99
[2021-03-13] MEDS: ALBUTEROL SULFATE (*SP) INHALER 2 PUFF INHALATION ×3 (01:49→15:54)
[2021-03-13 02:21] LABS: SARS-CoV-2 RNA PCR Negative
[2021-03-13 08:28] LABS: Alanine Aminotransferase 38 U/L (4-50); Estimated CRCL calculation 49 ml/min; Estimated Glomerular Filt Rate > 60
[2021-03-13 08:46] LABS: INR 1.3; Prothrombin Time 16.4 Seconds (11.1-14.7)
--- NOTE | 2021-03-13 09:42 | PCOTNOTE ---
attempted to see pt. for OT eval. Pt. receiving breathing treatment from respiratory. Will return later.
[2021-03-13] MEDS: DORNASE ALFA INH SOLN 1 MG/ML 2.5 ML AMP 2.5 MG INHALATION (09:49)
[2021-03-13] MEDS: APIXABAN 5 MG TABLET PO ×2 (10:15→17:42)
[2021-03-13] MEDS: guaiFENesin 12 HR 600 MG TABCR 1200 MG PO ×2 (10:15→21:12)
[2021-03-13] MEDS: FLUTICASONE PROPIONATE 0.05% NA SPR 16 GM BTL (*BKC) 2 SPRAY NASAL (10:15)
[2021-03-13] MEDS: LEVOTHYROXINE SODIUM 75 MCG TABLET PO (10:15)
[2021-03-13] MEDS: MAGNESIUM OXIDE 400 MG TABLET PO (10:15)
[2021-03-13] MEDS: ATORVASTATIN 20 MG TABLET PO (10:16)
[2021-03-13] MEDS: PSYLLIUM POWDER PACKET 1 PACKET PO (10:16)
[2021-03-13] MEDS: CARBIDOPA/LEVODOPA 25/100 MG TABLET 2 TABLET PO ×4 (10:16→21:12)
[2021-03-13] MEDS: ASPIRIN 81 MG ENTERIC TABLET PO (10:16)
[2021-03-13] MEDS: CYANOCOBALAMIN 1,000 MCG TABLET 1000 MCG PO (10:16)
[2021-03-13] MEDS: FUROSEMIDE 40 MG TABLET PO ×2 (10:16→12:53)
[2021-03-13] MEDS: METOPROLOL TARTRATE 12.5 MG TABLET PO ×2 (10:17→21:12)
[2021-03-13] MEDS: PANTOPRAZOLE 40 MG TABLET PO (10:17)
[2021-03-13] MEDS: MULTIVITAMINS THERAPEUTIC TAB (*BKC) 1 TABLET PO (10:17)
[2021-03-13] MEDS: DOCUSATE SODIUM 100 MG CAPSULE PO ×2 (10:19→17:42)
--- NOTE | 2021-03-13 13:25 | PM.IMPN ---
Progress Note: A&P Assessment and Plan (1) UTI due to extended-spectrum beta lactamase (ESBL) producing Escherichia coli: Code(s): N39.0 - Urinary tract infection, site not specified; B96.29 - Other Escherichia coli [E. coli] as the cause of diseases classified elsewhere; Z16.12 - Extended spectrum beta lactamase (ESBL) resistance Status: Acute Assessment and Plan: -patient was on Rocephin and azithromycin for pneumonia however he likely has E coli is ESBL infection causing his symptoms -changing antibiotics to cefepime 2 g dose b.i.d. (2) Bacteremia due to Escherichia coli: Code(s): R78.81 - Bacteremia; B96.20 - Unspecified Escherichia coli [E. coli] as the cause of diseases classified elsewhere Status: Acute Assessment and Plan: E coli bacteremia and bacteriuria -antibiotics as above (3) Hypokalemia: Code(s): E87.6 - Hypokalemia Status: Acute Assessment and Plan: Potassium 3.3, will replete 40 mEq potassium chloride once (4) Hypotension: Qualifiers: Hypotension type: other hypotension type Qualified Code(s): I95.89 - Other hypotension Code(s): I95.9 - Hypotension, unspecified Status: Acute Assessment and Plan: Blood pressure normalized (5) Fall from ground level: Code(s): W18.30XA - Fall on same level, unspecified, initial encounter Status: Acute Assessment and Plan: Flat physical therapy evaluate patient. Patient likely fell from hypotension from ESBL E coli UTI and bacteremia (6) Parkinson disease: Code(s): G20 - Parkinson's disease Status: Acute Assessment and Plan: Continue home carbidopa levodopa -patient may have fallen from hypotension may be orthostatic from Parkinson's however more likely explanation is bacteremia causing hypotension (7) Restless leg syndrome: Code(s): G25.81 - Restless legs syndrome Status: Acute (8) GERD (gastroesophageal reflux disease): Qualifiers: Esophagitis presence: without esophagitis Qualified Code(s): K21.9 - Gastro-esophageal reflux disease without esophagitis Code(s): K21.9 - Gastro-esophageal reflux disease without esophagitis Status: Acute (9) Insomnia: Qualifiers: Insomnia type: unspecified Qualified Code(s): G47.00 - Insomnia, unspecified Code(s): G47.00 - Insomnia, unspecified Status: Acute Additional Plan # other chronic conditions -hyperlipidemia: Continue Lipitor, aspirin -dementia: Continue Aricept -chronic congestive heart failure: Continue Lasix 40 mg b.i.d., metolazone, metoprolol 12.5 mg q.12 -restless leg syndrome: Continue Mirapex -GERD: Continue Protonix b.i.d. Diet: Heart healthy DVT prophylaxis: Eliquis Code status: Full code Disposition: Antibiotics IV for ESBL E coli bacteremia Time Spent With Patient Time with patient: 25 - 35 minutes Subjective Date/time seen: 03/13/21 13:25 Patient seen examined. Has dementia and is a poor historian. Discussed with over the phone. She would like to stay with him because he gets significant sundowning with his dementia however I do not think we can accommodate. Patient's COVID-19 test IgG positive and PCR is negative. With positive IgG was started on remdesivir and Decadron. It appears that this is likely an older infection and he is off isolation, stopping remdesivir. He is getting bradycardic from Decadron as well, stopping Decadron. At this time he does not have active COVID-19 that we need to treat. His blood cultures are growing E coli. This: Bacteremia diagnosis will stop azithromycin as he does not have a pneumonia. Will treat him with 2 g Rocephin for bacteremia. Continue physical therapy. Patient denies fever, chills nausea diarrhea, chest pain, shortness for breath, he has significant dementia. Review of Systems Review of Systems: All systems reviewed & are unremarkable except as noted in HPI and below
[2021-03-13] MEDS: POTASSIUM CHLORIDE 20 MEQ PACKET (FOR LIQUID) 40 MEQ PO (15:24)
[2021-03-13] MEDS: traZODone HCL 25 MG TABLET PO (21:12)
[2021-03-13] MEDS: DONEPEZIL HCL 5 MG TABLET 10 MG PO (21:12)
[2021-03-14] VITALS (11 sets, daily range): BP systolic 116–160; BP diastolic 60–66; PULSE 59–88; RESP 14–20; TEMP 36.3–36.6; O2SAT 95–98
[2021-03-14] MEDS: PRAMIPEXOLE 0.125 MG TABLET PO ×2 (00:45→21:23)
[2021-03-14] MEDS: PANTOPRAZOLE 40 MG TABLET PO ×3 (00:45→21:44)
[2021-03-14 06:58] LABS: Hematocrit 34.9 % (42.0-52.0); Hemoglobin 11.8 g/dL (14.0-18.0); Mean Corpuscular HGB Conc 33.8 g/dl (32-36); Mean Corpuscular Hemoglobin 33.4 pg (26-34); Mean Corpuscular Volume 98.9 fl (80-100); Platelet Count Result 200 k/mm3 (150-375); Red Blood Count 3.53 M/mm3 (4.6-6.20); Red Cell Distribution Width 13.9 % (11.5-14.5); White Blood Count 15.1 K/mm3 (4.5-10.0)
[2021-03-14] MEDS: LEVOTHYROXINE SODIUM 75 MCG TABLET PO (07:02)
[2021-03-14 07:15] LABS: Anion Gap 6 mmol/L (8-16); Blood Urea Nitrogen 27 mg/dL (9-20); Calcium 9.3 mg/dL (8.4-10.2); Carbon Dioxide 33 mmol/L (22-30); Chloride 96 mmol/L (98-107); Estimated CRCL calculation 49 ml/min; Estimated Glomerular Filt Rate > 60; Glucose 119 mg/dL (65-110); Potassium 3.7 mmol/L (3.4-5.0); Sodium 135 mmol/L (137-145)
[2021-03-14] MEDS: MULTIVITAMINS THERAPEUTIC TAB (*BKC) 1 TABLET PO (08:54)
[2021-03-14] MEDS: CARBIDOPA/LEVODOPA 25/100 MG TABLET 2 TABLET PO ×4 (08:54→21:24)
[2021-03-14] MEDS: METOPROLOL TARTRATE 12.5 MG TABLET PO ×2 (08:55→21:24)
[2021-03-14] MEDS: APIXABAN 5 MG TABLET PO ×2 (08:55→17:21)
[2021-03-14] MEDS: FUROSEMIDE 40 MG TABLET PO ×2 (08:58→13:57)
[2021-03-14] MEDS: ATORVASTATIN 20 MG TABLET PO (08:58)
[2021-03-14] MEDS: ASPIRIN 81 MG ENTERIC TABLET PO (08:59)
[2021-03-14] MEDS: MAGNESIUM OXIDE 400 MG TABLET PO (08:59)
[2021-03-14] MEDS: CYANOCOBALAMIN 1,000 MCG TABLET 1000 MCG PO (08:59)
[2021-03-14] MEDS: guaiFENesin 12 HR 600 MG TABCR 1200 MG PO ×2 (08:59→21:23)
[2021-03-14] MEDS: FLUTICASONE PROPIONATE 0.05% NA SPR 16 GM BTL (*BKC) 2 SPRAY NASAL (08:59)
[2021-03-14] MEDS: metOLazone 5 MG TABLET PO (08:59)
[2021-03-14] MEDS: PSYLLIUM POWDER PACKET 1 PACKET PO (09:00)
[2021-03-14] MEDS: DOCUSATE SODIUM 100 MG CAPSULE PO ×2 (10:31→17:22)
[2021-03-14] MEDS: ALBUTEROL SULFATE (*SP) INHALER 2 PUFF INHALATION ×2 (14:01→20:15)
--- NOTE | 2021-03-14 14:08 | PM.IMPN ---
Progress Note: A&P Assessment and Plan (1) UTI due to extended-spectrum beta lactamase (ESBL) producing Escherichia coli: Code(s): N39.0 - Urinary tract infection, site not specified; B96.29 - Other Escherichia coli [E. coli] as the cause of diseases classified elsewhere; Z16.12 - Extended spectrum beta lactamase (ESBL) resistance Status: Acute (2) Bacteremia due to Escherichia coli: Code(s): R78.81 - Bacteremia; B96.20 - Unspecified Escherichia coli [E. coli] as the cause of diseases classified elsewhere Status: Acute (3) Hypokalemia: Code(s): E87.6 - Hypokalemia Status: Acute (4) Pneumonia due to COVID-19 virus: Code(s): U07.1 - COVID-19; J12.82 - Pneumonia due to coronavirus disease 2019 Status: Acute (5) Chronic respiratory failure with hypoxia, on home O2 therapy: Code(s): J96.11 - Chronic respiratory failure with hypoxia; Z99.81 - Dependence on supplemental oxygen Status: Acute Additional Plan # ESBL E coli UTI # E coli bacteremia # hypertension secondary to infection, improved -continue antibiotics cefepime 2 mg dose b.i.d. -will continue IV antibiotics for couple days before transition to p.o. -persistent leukocytosis, patient did receive steroids for COVID-19 treatment but this also may be secondary to infection # COVID-19 pneumonia # acute on chronic hypoxic respiratory failure -at 1st to steroid treatment remdesivir dexamethasone. Then E coli bacteremia and urinary tract infection proved to be likely cause of infection. Now patient is becoming hypoxic again more than his home oxygen to 8 L with home oxygen requirements being 3 L. chest x-ray also shows signs of COVID-19 -restarting dexamethasone # acute kidney injury -likely prerenal, resolved # hypokalemia -potassium was 3.3 yesterday, improved to 3.7 # fall -likely secondary infection weakness PT and OT evaluate and treat # other chronic conditions -hyperlipidemia: Continue Lipitor, aspirin -Parkinson's disease: Continue Sinemet, patient may orthostatic hypotension secondary Parkinson's -Parkinson's dementia: Continue Aricept -chronic congestive heart failure: Continue Lasix 40 mg b.i.d., metolazone, metoprolol 12.5 mg q.12 -restless leg syndrome: Continue Mirapex -GERD: Continue Protonix b.i.d. -insomnia: -drinking Diet: Heart healthy DVT prophylaxis: Eliquis Code status: Full code Disposition: Antibiotics IV for ESBL E coli bacteremia and weaning oxygen for COVID-19 Time Spent With Patient Time with patient: 15 - 25 minutes Subjective Date/time seen: 03/14/21 14:08 Patient seen examined. He has no new complaints today. He still very confused consistent with his dementia. updated over the phone. Patient is being treated with cefepime for his ESBL E coli UTI/bacteremia. He is very confused however denies fever, chills, nausea vomiting, diarrhea, chest pain, shortness of breath. Review of Systems Review of Systems: ROS unobtainable: Yes unobtainable due to mental status Exam Narrative: - GENERAL: Pleasant elderly acute distress breathing comfortably on oxygen - EYES: EOMI. Anicteric. - HENT: Moist mucous membranes. - LUNGS: Diminished lung sounds, no audible wheezing. Nonlabored respirations - CARDIOVASCULAR: Regular rate and rhythm. No murmur. No JVD. - ABDOMEN: Soft, non-tender and non-distended. No palpable masses. - EXTREMITIES: No edema. Peripheral pulses 2+. Non-tender. - NEUROLOGIC: No focal neurological deficits. CN II-XII grossly intact. - PSYCHIATRIC: Awake, Alert and oriented to self. Appropriate mood, confused. - SKIN: No rashes or lesions. Warm. - LYMPH: No cervical lymphadenopathy. Objective Data Vital Signs Vital Signs: Vital Signs - 24 hr 03/13/21 14:55 03/13/21 16:00 03/13/21 16:03 Temperature 36.1 C L Pulse Rate 72 82 Respiratory Rate 18 Blood Pressure 120/62 Pulse Oximetry 94 95 03/13/21 20:00 03/13/21 20:35 03/13/21 20:42 Temper
[2021-03-14] MEDS: DORNASE ALFA INH SOLN 1 MG/ML 2.5 ML AMP 2.5 MG INHALATION ×2 (20:15)
[2021-03-14] MEDS: BUDESONIDE RESPULE NEB 0.5 MG/2 ML AMP INHALATION (20:16)
[2021-03-14] MEDS: traZODone HCL 25 MG TABLET PO (21:23)
[2021-03-14] MEDS: DONEPEZIL HCL 5 MG TABLET 10 MG PO (21:23)
[2021-03-15] VITALS (14 sets, daily range): BP systolic 104–123; BP diastolic 68–74; PULSE 42–88; RESP 14–20; TEMP 36.4–36.7; O2SAT 97–100
[2021-03-15] MEDS: WATER FOR IRRIGATION, STERILE 1,000 ML BOTTLE 1000 ML (02:40)
[2021-03-15] MEDS: ALBUTEROL SULFATE (*SP) INHALER 2 PUFF INHALATION ×3 (02:40→21:59)
[2021-03-15] MEDS: CARBIDOPA/LEVODOPA 25/100 MG TABLET 2 TABLET PO ×4 (06:44→21:15)
[2021-03-15] MEDS: LEVOTHYROXINE SODIUM 75 MCG TABLET PO (06:44)
[2021-03-15 07:59] LABS: Hematocrit 33.1 % (42.0-52.0); Hemoglobin 11.4 g/dL (14.0-18.0); Mean Corpuscular HGB Conc 34.4 g/dl (32-36); Mean Corpuscular Hemoglobin 33.3 pg (26-34); Mean Corpuscular Volume 96.8 fl (80-100); Mean Platelet Volume 10.4 fl (7.4-10.4); Platelet Count Result 201 k/mm3 (150-375); Red Blood Count 3.42 M/mm3 (4.6-6.20); Red Cell Distribution Width 13.8 % (11.5-14.5); White Blood Count 16.3 K/mm3 (4.5-10.0)
[2021-03-15 08:15] LABS: Anion Gap 9 mmol/L (8-16); Blood Urea Nitrogen 39 mg/dL (9-20); Calcium 8.9 mg/dL (8.4-10.2); Carbon Dioxide 31 mmol/L (22-30); Chloride 90 mmol/L (98-107); Estimated CRCL calculation 38 ml/min; Estimated Glomerular Filt Rate 52; Glucose 106 mg/dL (65-110); Potassium 3.5 mmol/L (3.4-5.0); Sodium 130 mmol/L (137-145)
[2021-03-15] MEDS: FUROSEMIDE 40 MG TABLET PO ×2 (09:09→12:55)
[2021-03-15] MEDS: ATORVASTATIN 20 MG TABLET PO (09:09)
[2021-03-15] MEDS: ASPIRIN 81 MG ENTERIC TABLET PO (09:10)
[2021-03-15] MEDS: APIXABAN 5 MG TABLET PO ×2 (09:10→18:21)
[2021-03-15] MEDS: MAGNESIUM OXIDE 400 MG TABLET PO (09:10)
[2021-03-15] MEDS: guaiFENesin 12 HR 600 MG TABCR 1200 MG PO ×2 (09:11→21:17)
[2021-03-15] MEDS: MULTIVITAMINS THERAPEUTIC TAB (*BKC) 1 TABLET PO (09:11)
[2021-03-15] MEDS: PSYLLIUM POWDER PACKET 1 PACKET PO (09:11)
[2021-03-15] MEDS: METOPROLOL TARTRATE 12.5 MG TABLET PO (09:11)
[2021-03-15] MEDS: PANTOPRAZOLE 40 MG TABLET PO ×2 (09:11→21:19)
[2021-03-15] MEDS: FLUTICASONE PROPIONATE 0.05% NA SPR 16 GM BTL (*BKC) 2 SPRAY NASAL (09:11)
[2021-03-15] MEDS: CYANOCOBALAMIN 1,000 MCG TABLET 1000 MCG PO (09:11)
[2021-03-15] MEDS: DOCUSATE SODIUM 100 MG CAPSULE PO ×2 (09:13→18:20)
[2021-03-15] MEDS: BUDESONIDE RESPULE NEB 0.5 MG/2 ML AMP INHALATION (13:41)
--- NOTE | 2021-03-15 14:18 | PM.IMPN ---
Progress Note: A&P Assessment and Plan (1) UTI due to extended-spectrum beta lactamase (ESBL) producing Escherichia coli: Code(s): N39.0 - Urinary tract infection, site not specified; B96.29 - Other Escherichia coli [E. coli] as the cause of diseases classified elsewhere; Z16.12 - Extended spectrum beta lactamase (ESBL) resistance Status: Acute (2) Bacteremia due to Escherichia coli: Code(s): R78.81 - Bacteremia; B96.20 - Unspecified Escherichia coli [E. coli] as the cause of diseases classified elsewhere Status: Acute (3) Hypokalemia: Code(s): E87.6 - Hypokalemia Status: Acute (4) Chronic respiratory failure with hypoxia, on home O2 therapy: Code(s): J96.11 - Chronic respiratory failure with hypoxia; Z99.81 - Dependence on supplemental oxygen Status: Acute (5) Fall from ground level: Code(s): W18.30XA - Fall on same level, unspecified, initial encounter Status: Acute Additional Plan # ESBL E coli UTI # E coli bacteremia # hypertension secondary to infection, improved -continue antibiotics cefepime 2 mg dose b.i.d. -will continue IV antibiotics for couple days before transition to p.o. -persistent leukocytosis, patient did receive steroids for COVID-19 treatment but this also may be secondary to infection # COPD exacerbation # acute on chronic hypoxic respiratory failure -at 1st to steroid treatment remdesivir dexamethasone. Then E coli bacteremia and urinary tract infection proved to be likely cause of infection. Now patient is becoming hypoxic again more than his home oxygen to 8 L with home oxygen requirements being 3 L. chest x-ray also shows signs of COVID-19 -continue dexamethasone, which can help for COPD exacerbation as well -repeating COVID 19 test (he has had multiple negative COVID-19 test, 1 positive rapid test, will repeat today. Chest x-ray concerning for COVID-19.) -patient has a history of COPD not on inhalers. # acute kidney injury, resolved -likely prerenal, resolved # hypokalemia, resolved -will replete as needed # fall -likely secondary infection weakness PT and OT evaluate and treat # other chronic conditions -hyperlipidemia: Continue Lipitor, aspirin -Parkinson's disease: Continue Sinemet, patient may orthostatic hypotension secondary Parkinson's -Parkinson's dementia: Continue Aricept -chronic congestive heart failure: Continue Lasix 40 mg b.i.d., metolazone, metoprolol 12.5 mg q.12 -restless leg syndrome: Continue Mirapex -GERD: Continue Protonix b.i.d. -insomnia: trazodone Diet: Heart healthy DVT prophylaxis: Eliquis Code status: DNR (updated after talking to 03/15/21) Disposition: Antibiotics IV for ESBL E coli bacteremia and weaning oxygen (HOT is 3L O2) Subjective Date/time seen: 03/15/21 14:18 Patient seen examined. He is doing well today, no new complaints. bedside updated. states patient has been talking about a lot recently and is nervous about him. We talked about goals of care and he is do not resuscitate. Will update order. His been trying clear if he had COVID-19 as he had multiple negative tests and then had incidental finding with 1 positive COVID test while he was on his home oxygen level but subsequent PCR was negative. Now increased oxygen requirements to 6 L from his home of 3 L with no real explanation. Repeating COVID 19 test PCR. Otherwise he is on appropriate antibiotics for his ESBL E coli UTI and bacteremia. Patient is very pleasant he denies fever, chills, nausea, vomiting diarrhea, chest pain, shortness of breath. like to stay bedside with patient overnight as his confusion worsens when family is not around. I discussed with RN. Review of Systems Review of Systems: He has significant dementia All systems reviewed & are unremarkable except as noted in HPI and below ROS unobtainable: Yes unobtainable due to mental status Exam Narrative: - GENERAL: Pleasant elderly acute distress dipti
[2021-03-15] MEDS: DONEPEZIL HCL 5 MG TABLET 10 MG PO (21:15)
[2021-03-15] MEDS: PRAMIPEXOLE 0.125 MG TABLET PO (21:18)
[2021-03-15] MEDS: traZODone HCL 25 MG TABLET PO (21:19)
[2021-03-16] VITALS (13 sets, daily range): BP systolic 109–145; BP diastolic 62–72; PULSE 66–88; RESP 14–20; TEMP 36.4–37.1; O2SAT 92–97
[2021-03-16] MEDS: ALBUTEROL SULFATE (*SP) INHALER 2 PUFF INHALATION (02:53)
[2021-03-16] MEDS: LEVOTHYROXINE SODIUM 75 MCG TABLET PO (07:03)
[2021-03-16] MEDS: CARBIDOPA/LEVODOPA 25/100 MG TABLET 2 TABLET PO ×4 (07:04→22:02)
[2021-03-16 08:14] LABS: Basophils Absolute Auto 0.1 K/mm3 (0.0-0.1); Basophils Percent Auto 0.4 % (0.2-1.2); Eosinophils Absolute Auto 0.1 K/mm3 (0-0.3); Eosinophils Percent Auto 0.8 % (0-4.4); Hematocrit 34.8 % (42.0-52.0); Immature Granulocyte Absolute 0.41 K/mm3 (0.00-0.031); Immature Granulocyte Percent A 2.7 % (0-0.5); Lymphocytes Absolute Auto 2.92 K/mm3 (0.9-3.2); Lymphocytes Percent Auto 19.3 % (18.3-44.2); Mean Corpuscular HGB Conc 34.5 g/dl (32-36); Mean Corpuscular Hemoglobin 33.6 pg (26-34); Mean Corpuscular Volume 97.5 fl (80-100); Mean Platelet Volume 9.9 fl (7.4-10.4); Monocytes Absolute Auto 1.1 K/mm3 (0.1-0.6); Monocytes Percent Auto 6.9 % (2.6-8.5); Neutrophils Absolute Auto 10.6 K/mm3 (1.3-6.7); Neutrophils Percent Auto 69.9 % (45.5-73.1); Nucleated Red Blood Cells Perc 0.1 % (0.0-0.2); Platelet Count Result 210 k/mm3 (150-375); Red Blood Count 3.57 M/mm3 (4.6-6.20); Red Cell Distribution Width 13.7 % (11.5-14.5); White Blood Count 15.1 K/mm3 (4.5-10.0)
[2021-03-16 08:29] LABS: Alanine Aminotransferase 7 U/L (4-50); Albumin Level 3.7 g/dL (3.5-5.1); Alkaline Phosphatase 96 U/L (38-126); Anion Gap 11 mmol/L (8-16); Aspartate Amino Transferase 28 U/L (17-59); Bilirubin,Total 0.6 mg/dL (0.2-1.3); Blood Urea Nitrogen 40 mg/dL (9-20); Carbon Dioxide 34 mmol/L (22-30); Chloride 86 mmol/L (98-107); Estimated CRCL calculation 38 ml/min; Estimated Glomerular Filt Rate 52; Glucose 133 mg/dL (65-110); Potassium 2.7 mmol/L (3.4-5.0); Sodium 131 mmol/L (137-145)
[2021-03-16] MEDS: DOCUSATE SODIUM 100 MG CAPSULE PO ×2 (10:35→16:38)
[2021-03-16] MEDS: PSYLLIUM POWDER PACKET 1 PACKET PO (10:35)
[2021-03-16] MEDS: METOPROLOL TARTRATE 12.5 MG TABLET PO ×2 (10:35→22:02)
[2021-03-16] MEDS: MAGNESIUM OXIDE 400 MG TABLET PO (10:37)
[2021-03-16] MEDS: ASPIRIN 81 MG ENTERIC TABLET PO (10:37)
[2021-03-16] MEDS: FLUTICASONE PROPIONATE 0.05% NA SPR 16 GM BTL (*BKC) 2 SPRAY NASAL (10:37)
[2021-03-16] MEDS: APIXABAN 5 MG TABLET PO ×2 (10:37→16:38)
[2021-03-16] MEDS: ATORVASTATIN 20 MG TABLET PO (10:37)
[2021-03-16] MEDS: MULTIVITAMINS THERAPEUTIC TAB (*BKC) 1 TABLET PO (10:37)
[2021-03-16] MEDS: PANTOPRAZOLE 40 MG TABLET PO ×2 (10:37→22:04)
[2021-03-16] MEDS: guaiFENesin 12 HR 600 MG TABCR 1200 MG PO ×2 (10:37→22:01)
[2021-03-16] MEDS: FUROSEMIDE 40 MG TABLET PO ×2 (10:37→12:09)
[2021-03-16] MEDS: CYANOCOBALAMIN 1,000 MCG TABLET 1000 MCG PO (10:37)
[2021-03-16 11:42] LABS: Atypical Lymphocytes Present; Platelet Estimate Adequate (Adequate)
--- NOTE | 2021-03-16 13:33 | PCRCNOTE ---
Past window of treatment time.
[2021-03-16] MEDS: DORNASE ALFA INH SOLN 1 MG/ML 2.5 ML AMP 2.5 MG INHALATION (14:09)
[2021-03-16] MEDS: ALBUTEROL SULFATE NEB 2.5 MG/0.5 ML INH INHALATION (14:09)
[2021-03-16 14:14] LABS: SARS-CoV-2 RNA PCR Negative
--- NOTE | 2021-03-16 15:23 | PM.IMPN ---
Progress Note: A&P Assessment and Plan (1) UTI due to extended-spectrum beta lactamase (ESBL) producing Escherichia coli: Code(s): N39.0 - Urinary tract infection, site not specified; B96.29 - Other Escherichia coli [E. coli] as the cause of diseases classified elsewhere; Z16.12 - Extended spectrum beta lactamase (ESBL) resistance Status: Acute (2) Hypokalemia: Code(s): E87.6 - Hypokalemia Status: Acute (3) Bacteremia due to Escherichia coli: Code(s): R78.81 - Bacteremia; B96.20 - Unspecified Escherichia coli [E. coli] as the cause of diseases classified elsewhere Status: Acute (4) Chronic respiratory failure with hypoxia, on home O2 therapy: Code(s): J96.11 - Chronic respiratory failure with hypoxia; Z99.81 - Dependence on supplemental oxygen Status: Acute (5) Fall from ground level: Code(s): W18.30XA - Fall on same level, unspecified, initial encounter Status: Acute (6) Person under investigation for COVID-19: Code(s): Z20.822 - Contact with and (suspected) exposure to COVID-19 Status: Acute Additional Plan # ESBL E coli UTI # E coli bacteremia # hypertension secondary to infection, improved -continue antibiotics cefepime 2 mg dose b.i.d. -will continue IV antibiotics for couple days before transition to p.o., leukocytosis is downtrending once again down to 15.1 however he is on steroids so he may have some persistent leukocytosis. Clinically he appears to be improving, afebrile. -persistent leukocytosis, patient did receive steroids for COVID-19 treatment but this also may be secondary to infection # COPD exacerbation # acute on chronic hypoxic respiratory failure -at 1st to steroid treatment remdesivir dexamethasone. Then E coli bacteremia and urinary tract infection proved to be likely cause of infection. Now patient is becoming hypoxic again more than his home oxygen to 8 L with home oxygen requirements being 3 L. chest x-ray also shows signs of COVID-19. He has again been weaned down to 3 L home oxygen therapy -continue dexamethasone, which can help for COPD exacerbation as well -repeating COVID 19 test (he has had multiple negative COVID-19 test, 1 positive rapid test, repeat PCR pending. Chest x-ray concerning for COVID-19.) -patient has a history of COPD not on inhalers, likely poorly controlled COPD. # acute kidney injury, resolved -likely prerenal, resolved # hypokalemia -potassium dropped to 2.7, giving 40 mEq x2, rechecking this in afternoon # fall -likely secondary infection weakness PT and OT evaluate and treat. Patient also has PT and OT at home already that come by 4 times a week. He also does better when he is around his family and would not do well at an inpatient nursing facility # other chronic conditions -hyperlipidemia: Continue Lipitor, aspirin -Parkinson's disease: Continue Sinemet, patient may orthostatic hypotension secondary Parkinson's -Parkinson's dementia: Continue Aricept -chronic congestive heart failure: Continue Lasix 40 mg b.i.d., metolazone, metoprolol 12.5 mg q.12 -restless leg syndrome: Continue Mirapex -GERD: Continue Protonix b.i.d. -insomnia: trazodone Diet: Heart healthy DVT prophylaxis: Eliquis Code status: DNR (updated after talking to 03/15/21) Disposition: Home with home health Subjective Date/time seen: 03/16/21 15:23 Patient seen examined. He is doing well today. bedside updated. He has been weaned down to his home oxygen level 3 L. COVID-19 test repeat PCR is still pending. Will continue the IV antibiotics and likely transition to p.o. for discharge soon back to home. He has physical therapy outpatient and his home. Patient denies fever, chills, nausea, vomiting, diarrhea, chest pain. Review of Systems Review of Systems: All systems reviewed & are unremarkable except as noted in HPI and below Exam Narrative: - GENERAL: Pleasant elderly acute distress breathing comfortably on oxygen on
[2021-03-16 16:20] LABS: Anion Gap 13 mmol/L (8-16); Blood Urea Nitrogen 47 mg/dL (9-20); Calcium 9.3 mg/dL (8.4-10.2); Carbon Dioxide 34 mmol/L (22-30); Chloride 83 mmol/L (98-107); Estimated CRCL calculation 33 ml/min; Estimated Glomerular Filt Rate 44; Glucose 225 mg/dL (65-110); Potassium 3.5 mmol/L (3.4-5.0); Sodium 130 mmol/L (137-145)
[2021-03-16] MEDS: POTASSIUM CHLORIDE 20 MEQ TABLET 40 MEQ PO (16:37)
[2021-03-16] MEDS: PRAMIPEXOLE 0.125 MG TABLET PO (22:02)
[2021-03-16] MEDS: traZODone HCL 25 MG TABLET PO (22:03)
[2021-03-16] MEDS: DONEPEZIL HCL 5 MG TABLET 10 MG PO (22:03)
--- NOTE | 2021-03-16 23:40 | PCRCNOTE ---
Window of time for administration has passed. See next scheduled administration.
[2021-03-17] VITALS (13 sets, daily range): BP systolic 135–142; BP diastolic 70–108; PULSE 59–96; RESP 16–26; TEMP 36.2–36.3; O2SAT 93–100
[2021-03-17] MEDS: ALBUTEROL SULFATE (*SP) INHALER 2 PUFF INHALATION ×4 (03:02→21:30)
[2021-03-17] MEDS: CARBIDOPA/LEVODOPA 25/100 MG TABLET 2 TABLET PO ×4 (06:36→21:38)
[2021-03-17] MEDS: LEVOTHYROXINE SODIUM 75 MCG TABLET PO (06:36)
[2021-03-17 07:00] LABS: Basophils Percent Auto 0.2 % (0.2-1.2); Eosinophils Absolute Auto 0.1 K/mm3 (0-0.3); Eosinophils Percent Auto 0.9 % (0-4.4); Hematocrit 38.3 % (42.0-52.0); Hemoglobin 12.6 g/dL (14.0-18.0); Immature Granulocyte Absolute 0.37 K/mm3 (0.00-0.031); Immature Granulocyte Percent A 2.9 % (0-0.5); Immature Platelet Fraction Pct 4.3 % (0.9-11.2); Lymphocytes Absolute Auto 2.79 K/mm3 (0.9-3.2); Lymphocytes Percent Auto 21.7 % (18.3-44.2); Mean Corpuscular HGB Conc 32.9 g/dl (32-36); Mean Corpuscular Hemoglobin 32.7 pg (26-34); Mean Corpuscular Volume 99.5 fl (80-100); Mean Platelet Volume 11.4 fl (7.4-10.4); Monocytes Absolute Auto 0.8 K/mm3 (0.1-0.6); Monocytes Percent Auto 5.9 % (2.6-8.5); Neutrophils Absolute Auto 8.8 K/mm3 (1.3-6.7); Neutrophils Percent Auto 68.4 % (45.5-73.1); Nucleated Red Blood Cells Perc 0.2 % (0.0-0.2); Platelet Count Result 209 k/mm3 (150-375); Red Blood Count 3.85 M/mm3 (4.6-6.20); Red Cell Distribution Width 13.9 % (11.5-14.5); White Blood Count 12.8 K/mm3 (4.5-10.0)
[2021-03-17] MEDS: ATORVASTATIN 20 MG TABLET PO (09:44)
[2021-03-17] MEDS: MULTIVITAMINS THERAPEUTIC TAB (*BKC) 1 TABLET PO (09:44)
[2021-03-17] MEDS: APIXABAN 5 MG TABLET PO ×2 (09:45→17:10)
[2021-03-17] MEDS: METOPROLOL TARTRATE 12.5 MG TABLET PO ×2 (09:45→21:41)
[2021-03-17] MEDS: CYANOCOBALAMIN 1,000 MCG TABLET 1000 MCG PO (09:45)
[2021-03-17] MEDS: MAGNESIUM OXIDE 400 MG TABLET PO (09:45)
[2021-03-17] MEDS: ASPIRIN 81 MG ENTERIC TABLET PO (09:45)
[2021-03-17] MEDS: metOLazone 5 MG TABLET PO (09:45)
[2021-03-17] MEDS: FUROSEMIDE 40 MG TABLET PO ×2 (09:45→13:17)
[2021-03-17] MEDS: PANTOPRAZOLE 40 MG TABLET PO ×2 (09:49→21:39)
[2021-03-17] MEDS: PSYLLIUM POWDER PACKET 1 PACKET PO (09:49)
[2021-03-17] MEDS: FLUTICASONE PROPIONATE 0.05% NA SPR 16 GM BTL (*BKC) 2 SPRAY NASAL (09:50)
[2021-03-17] MEDS: guaiFENesin 12 HR 600 MG TABCR 1200 MG PO ×2 (09:50→21:38)
[2021-03-17] MEDS: DOCUSATE SODIUM 100 MG CAPSULE PO ×2 (09:55→19:12)
[2021-03-17] MEDS: DORNASE ALFA INH SOLN 1 MG/ML 2.5 ML AMP 2.5 MG INHALATION ×2 (10:22→21:30)
[2021-03-17] MEDS: BUDESONIDE RESPULE NEB 0.5 MG/2 ML AMP INHALATION (10:22)
[2021-03-17] MEDS: ALBUTEROL SULFATE NEB 2.5 MG/0.5 ML INH INHALATION (10:22)
[2021-03-17 13:01] LABS: Anion Gap 13 mmol/L (8-16); Blood Urea Nitrogen 48 mg/dL (9-20); Calcium 9.6 mg/dL (8.4-10.2); Carbon Dioxide 35 mmol/L (22-30); Chloride 84 mmol/L (98-107); Estimated CRCL calculation 35 ml/min; Estimated Glomerular Filt Rate 48; Glucose 111 mg/dL (65-110); Potassium 2.9 mmol/L (3.4-5.0); Sodium 132 mmol/L (137-145)
--- NOTE | 2021-03-17 15:17 | PM.DS ---
DS: Admitting Diagnosis Discharge Date 03/17/2021 Admitting Diagnosis COVID-19 pneumonia DS: Discharge Diagnosis Discharge Diagnosis (1) UTI due to extended-spectrum beta lactamase (ESBL) producing Escherichia coli: Code(s): N39.0 - Urinary tract infection, site not specified; B96.29 - Other Escherichia coli [E. coli] as the cause of diseases classified elsewhere; Z16.12 - Extended spectrum beta lactamase (ESBL) resistance Status: Acute Assessment and Plan: ESBL E coli UTI treated with 3 days of cefepime min to complete 11 days of Augmentin. Patient was on Bactrim prior to admission however his E coli infection is resistant to Bactrim. This bacteria is resistant to most organisms. (2) Bacteremia due to Escherichia coli: Code(s): R78.81 - Bacteremia; B96.20 - Unspecified Escherichia coli [E. coli] as the cause of diseases classified elsewhere Status: Acute Assessment and Plan: Bacteremia secondary to urinary tract infection (3) Hypokalemia: Code(s): E87.6 - Hypokalemia Status: Acute Assessment and Plan: Repleted (4) Person under investigation for COVID-19: Code(s): Z20.822 - Contact with and (suspected) exposure to COVID-19 Status: Acute Assessment and Plan: Numerous negative COVID-19 PCR test, 1 rapid test was positive however subsequent test were negative. He does not have COVID-19. DS: Summary Hospital Course Reason for hospitalization: Fall weakness Hospital Course: And a CT patient is an 85-year-old male past medical history of Parkinson's dementia, CKD, COPD, atrial fibrillation on Eliquis, chronic hypoxic respiratory failure on 3 L home oxygen therapy who presents to ED from assisted living facility for a ground level fall. He has had numerous COVID-19 tests almost daily for the last week which all have been negative other than one rapid COVID-19 test. Subsequent COVID 19 PCR test have been negative. His oxygen requirements went up from 3 L to 8 L and this is likely secondary to a COPD exacerbation which improved with steroids. He has been weaned down to his home oxygen level of 3 L of oxygen. Throughout his workup he was found to have ESBL E coli UTI and bacteremia which was sensitive to cefepime which he completed 3 days, will be discharged with 11 days of Augmentin based off of cultures and sensitivities. He has run out of most antibiotic options because of very resistant ESBL E coli. In the future he may no longer have any antibiotic options. Patient's code status was updated to do not resuscitate which is in line with his wishes. Patient to be discharged to [facility] nursing facility today. Time of discharge patient's vitals are stable, labs stable, patient is stable for discharge. Rx for Augmentin for 11 days given. Patient to follow-up with PCP in 1 week. Patient's family understands and agrees with plan. Status at Discharge Cognitive/behavioral status at discharge: Baseline dementia Functional status at discharge: uses cane/walker Overall status at discharge: patient is back to baseline Time Spent with Patient Time attestation: Total time spent providing and/or coordinating discharge services: 35 Time spent: Greater than 30 minutes Exam Narrative: - GENERAL: Pleasant elderly in no acute distress, breathing comfortably on oxygen on 3L - EYES: EOMI. Anicteric. - HENT: Moist mucous membranes. - LUNGS: Diminished lung sounds, no audible wheezing. Nonlabored respirations - CARDIOVASCULAR: Regular rate and rhythm. No murmur. No JVD. - ABDOMEN: Soft, non-tender and non-distended. No palpable masses. - EXTREMITIES: No edema. Peripheral pulses 2+. Non-tender. - NEUROLOGIC: No focal neurological deficits. CN II-XII grossly intact. - PSYCHIATRIC: Awake, Alert and oriented to self. Appropriate mood, confused. - SKIN: No rashes or lesions. Warm. - LYMPH: No cervical lymphadenopathy. DS: Data Data Completed and Pending Labs on d
--- NOTE | 2021-03-17 17:00 | PC.NURSE ---
Called report to Esperanza at [facility]. Informed Esperanza patient would be transported by his and would be arriving once his rapid COVID19 test results were posted. Results for rapid test were positive. Called and left message for Care Coordination informing them of positive rapid test and informed Dr. Mullins of positive results as well. Contacted Esperanza with [facility] and informed her of the positive results and she confirmed patient would not be accepted due to positive COVID test.
[2021-03-17] MEDS: POTASSIUM CHLORIDE 20 MEQ TABLET 40 MEQ PO ×2 (17:09→19:12)
[2021-03-17 17:11] LABS: EDCOVIDSCREEN Positive (Negative)
--- NOTE | 2021-03-17 17:33 | PM.IMPN ---
Progress Note: A&P Assessment and Plan (1) UTI due to extended-spectrum beta lactamase (ESBL) producing Escherichia coli: Code(s): N39.0 - Urinary tract infection, site not specified; B96.29 - Other Escherichia coli [E. coli] as the cause of diseases classified elsewhere; Z16.12 - Extended spectrum beta lactamase (ESBL) resistance Status: Acute (2) Bacteremia due to Escherichia coli: Code(s): R78.81 - Bacteremia; B96.20 - Unspecified Escherichia coli [E. coli] as the cause of diseases classified elsewhere Status: Acute (3) Hypokalemia: Code(s): E87.6 - Hypokalemia Status: Acute (4) Chronic respiratory failure with hypoxia, on home O2 therapy: Code(s): J96.11 - Chronic respiratory failure with hypoxia; Z99.81 - Dependence on supplemental oxygen Status: Acute Additional Plan # ESBL E coli UTI # E coli bacteremia # hypertension secondary to infection, improved -continue antibiotics cefepime 2 mg dose b.i.d. -will continue IV antibiotics for couple days before transition to p.o., leukocytosis improving down to 12,000 -persistent leukocytosis, patient did receive steroids for COVID-19 treatment but this also may be secondary to infection -will likely send home on Augmentin based on sensitivities whenever we have disposition, unfortunately his rapid COVID test was positive despite numerous negative COVID-19 PCR test # COPD exacerbation # acute on chronic hypoxic respiratory failure -at 1st to steroid treatment remdesivir dexamethasone. Then E coli bacteremia and urinary tract infection proved to be likely cause of infection. O2 was weaned to his baseline 3L O2 -patient has a history of COPD not on inhalers, likely poorly controlled COPD. #COVID 19 PUI -COVID 19 test (he has had multiple negative COVID-19 test, 1 positive rapid test, repeat PCR pending. Chest x-ray concerning for COVID-19.) Repeat PCR covid was negative. final covid test rapid on 03/17/2021 is positive complicating disposition # acute kidney injury, resolved -likely prerenal, resolved # hypokalemia -repleting potassium giving supplements as needed to keep K>4 -likely secondary to diuresis -giving 40mEq x2 # fall -likely secondary infection weakness PT and OT evaluate and treat. Patient also has PT and OT at home already that come by 4 times a week. He also does better when he is around his family and would not do well at an inpatient nursing facility # other chronic conditions -hyperlipidemia: Continue Lipitor, aspirin -Parkinson's disease: Continue Sinemet, patient may orthostatic hypotension secondary Parkinson's -Parkinson's dementia: Continue Aricept -chronic congestive heart failure: Continue Lasix 40 mg b.i.d., metolazone, metoprolol 12.5 mg q.12 -restless leg syndrome: Continue Mirapex -GERD: Continue Protonix b.i.d. -insomnia: trazodone Diet: Heart healthy DVT prophylaxis: Eliquis Code status: DNR (updated after talking to 03/15/21) Disposition: SNF that will take him with rapid COVID test positive Subjective Date/time seen: 03/17/21 17:33 Patient seen and examined. He is doing well today. Leukocytosis improving down to 12,000. I was trying to discharge him today on p.o. Augmentin for his ESBL E coli UTI and bacteremia. He is clinically doing much better back to his home oxygen level 3 L. we have tested him for COVID-19 so many times and have all been negative he, he has had 1 rapid COVID test which was positive and subsequent PCR test were negative. For him to go to long-term today he needed a rapid COVID test which came back again as positive. Bizarre 2 positive rapid COVID tests with multiple negative PCR tests. Patient is clinically back to baseline. I do not believe he has an active COVID 19 infection, despite this long-term will not be able to take care of him. We will need to look for a new facility tomorrow for disposition. Continue IV cefepime while inpatient. updated. Review of Systems Re
[2021-03-17] MEDS: DONEPEZIL HCL 5 MG TABLET 10 MG PO (21:38)
[2021-03-17] MEDS: traZODone HCL 25 MG TABLET PO (21:39)
[2021-03-17] MEDS: PRAMIPEXOLE 0.125 MG TABLET PO (21:39)
[2021-03-18] VITALS (10 sets, daily range): BP systolic 100–141; BP diastolic 61–73; PULSE 54–88; RESP 18–22; TEMP 35.8–36.1; O2SAT 96–100
[2021-03-18] MEDS: ALBUTEROL SULFATE (*SP) INHALER 2 PUFF INHALATION (02:23)
[2021-03-18] MEDS: CARBIDOPA/LEVODOPA 25/100 MG TABLET 2 TABLET PO ×4 (05:19→21:24)
[2021-03-18] MEDS: LEVOTHYROXINE SODIUM 75 MCG TABLET PO (05:20)
--- NOTE | 2021-03-18 07:56 | PCNWS ---
Weekly nutritional screen. Patient is tolerating current diet with adequate intake. No weight loss reported. No nutritional needs at this time.
--- NOTE | 2021-03-18 08:30 | PC.NURSE ---
EAR MUFF ASSEMBLER was assisting patient to bedside commode. Patient on commode, with EAR MUFF ASSEMBLER next to him, and fell forward off of commode. According to patients who was also at the bedside, patient fell forward and hit his head off of the mattress. Patient has no complaints of pain, states he remembers sitting on the commode and then he woke up and was on the floor. Patient appeared to have a vasovagal episode, as he was having a small BM on commode. Dr. Mullins was notified, vital signs stable, present at bedside.
[2021-03-18] MEDS: APIXABAN 5 MG TABLET PO ×2 (08:32→17:37)
[2021-03-18] MEDS: ATORVASTATIN 20 MG TABLET PO (08:32)
[2021-03-18] MEDS: MULTIVITAMINS THERAPEUTIC TAB (*BKC) 1 TABLET PO (08:32)
[2021-03-18] MEDS: CYANOCOBALAMIN 1,000 MCG TABLET 1000 MCG PO (08:32)
[2021-03-18] MEDS: ASPIRIN 81 MG ENTERIC TABLET PO (08:32)
[2021-03-18] MEDS: FUROSEMIDE 40 MG TABLET PO ×2 (08:32→12:40)
[2021-03-18] MEDS: PANTOPRAZOLE 40 MG TABLET PO ×2 (08:32→21:24)
[2021-03-18] MEDS: guaiFENesin 12 HR 600 MG TABCR 1200 MG PO ×2 (08:32→21:22)
[2021-03-18] MEDS: MAGNESIUM OXIDE 400 MG TABLET PO (08:32)
[2021-03-18] MEDS: METOPROLOL TARTRATE 12.5 MG TABLET PO ×2 (08:33→21:23)
[2021-03-18] MEDS: PSYLLIUM POWDER PACKET 1 PACKET PO (08:35)
[2021-03-18] MEDS: FLUTICASONE PROPIONATE 0.05% NA SPR 16 GM BTL (*BKC) 2 SPRAY NASAL (08:40)
--- NOTE | 2021-03-18 11:18 | PCRCNOTE ---
Window of time for administration has passed. See next scheduled administration.
[2021-03-18] MEDS: DOCUSATE SODIUM 100 MG CAPSULE PO ×2 (12:40→17:38)
[2021-03-18 13:54] LABS: SARS-CoV-2 RNA PCR Negative
--- NOTE | 2021-03-18 14:43 | PCPTNOTE ---
Unable to get to patient this afternoon; pt was currently with the IV nurse.
--- NOTE | 2021-03-18 15:51 | PM.IMPN ---
Progress Note: A&P Assessment and Plan (1) UTI due to extended-spectrum beta lactamase (ESBL) producing Escherichia coli: Code(s): N39.0 - Urinary tract infection, site not specified; B96.29 - Other Escherichia coli [E. coli] as the cause of diseases classified elsewhere; Z16.12 - Extended spectrum beta lactamase (ESBL) resistance Status: Acute (2) Bacteremia due to Escherichia coli: Code(s): R78.81 - Bacteremia; B96.20 - Unspecified Escherichia coli [E. coli] as the cause of diseases classified elsewhere Status: Acute (3) Person under investigation for COVID-19: Code(s): Z20.822 - Contact with and (suspected) exposure to COVID-19 Status: Acute (4) Hypokalemia: Code(s): E87.6 - Hypokalemia Status: Acute (5) Chronic respiratory failure with hypoxia, on home O2 therapy: Code(s): J96.11 - Chronic respiratory failure with hypoxia; Z99.81 - Dependence on supplemental oxygen Status: Acute (6) Fall from ground level: Code(s): W18.30XA - Fall on same level, unspecified, initial encounter Status: Acute Additional Plan # vasovagal episode, fall -patient fell while straining on the commode -continue supportive care and a change in antibiotics or treatment plan -likely secondary to infection -vitals stable after fall # ESBL E coli UTI # E coli bacteremia # hypertension secondary to infection, improved -continue antibiotics cefepime 2 mg dose b.i.d. while inpatient, will switch to p.o. Augmentin based on sensitivities on discharge for total 2 weeks of antibiotics -leukocytosis improving # COPD exacerbation # acute on chronic hypoxic respiratory failure -at 1st to steroid treatment remdesivir dexamethasone. Then E coli bacteremia and urinary tract infection proved to be likely cause of infection. O2 was weaned to his baseline 3L O2 -patient has a history of COPD not on inhalers, likely poorly controlled COPD. #COVID 19 PUI -COVID 19 test (he has had multiple negative COVID-19 PCR test, positive rapid COVID tests) -I do not believe he has a true infection as he is on baseline O2 and asymptomatic for respiratory symptoms # acute kidney injury, resolved -likely prerenal, resolved # hypokalemia -repleting potassium giving supplements as needed to keep K>4 -likely secondary to diuresis -giving KCL 40mEq # other chronic conditions -hyperlipidemia: Continue Lipitor, aspirin -Parkinson's disease: Continue Sinemet, patient may orthostatic hypotension secondary Parkinson's -Parkinson's dementia: Continue Aricept -chronic congestive heart failure: Continue Lasix 40 mg b.i.d., metolazone, metoprolol 12.5 mg q.12 -restless leg syndrome: Continue Mirapex -GERD: Continue Protonix b.i.d. -insomnia: trazodone Diet: Heart healthy DVT prophylaxis: Eliquis Code status: DNR (updated after talking to 03/15/21) Disposition: SNF that will take him with rapid COVID test positive Subjective Date/time seen: 03/18/21 15:51 Patient seen examined. Patient had a fall today while straining during a bowel movement on the commode, he fell forward onto the mat. I evaluated patient, he is back to baseline, no clinical change. He likely had vasovagal episode while straining. His vitals are normal. We are still waiting on disposition plan since COVID rapid test are positive while PCR tests have been negative. Continue IV cefepime while inpatient, will transition to Augmentin p.o. on discharge. Patient denies fever, chills, nausea vomiting diarrhea, chest pain, shortness of breath. Review of Systems Review of Systems: All systems reviewed & are unremarkable except as noted in HPI and below Exam Narrative: - GENERAL: Pleasant elderly acute distress breathing comfortably on oxygen on 3L - EYES: EOMI. Anicteric. - HENT: Moist mucous membranes. No bruising on forehead - LUNGS: Clear to auscultation no wheezing rhonchi or rales. Nonlabored respirations on 3L - CARDIOVASCULAR: Regular rat
[2021-03-18] MEDS: POTASSIUM CHLORIDE 20 MEQ TABLET 40 MEQ PO (17:38)
[2021-03-18] MEDS: DONEPEZIL HCL 5 MG TABLET 10 MG PO (21:23)
[2021-03-18] MEDS: traZODone HCL 25 MG TABLET PO (21:24)
[2021-03-18] MEDS: PRAMIPEXOLE 0.125 MG TABLET PO (21:24)
[2021-03-19] MEDS: ALBUTEROL SULFATE (*SP) INHALER 2 PUFF INHALATION ×4 (04:04→13:49)
--- NOTE | 2021-03-19 04:45 | PCRCNOTE ---
Window of time for administration has passed. See next scheduled administration.
[2021-03-19] MEDS: LEVOTHYROXINE SODIUM 75 MCG TABLET PO (05:30)
[2021-03-19] MEDS: CARBIDOPA/LEVODOPA 25/100 MG TABLET 2 TABLET PO ×2 (05:30→15:40)
[2021-03-19 06:00] VITALS: BP 112/73; PULSE 80; RESP 21; TEMP 35.9; O2SAT 95
[2021-03-19 08:00] VITALS: O2SAT 95
[2021-03-19 08:13] LABS: Anion Gap 4 mmol/L (8-16); Blood Urea Nitrogen 50 mg/dL (9-20); Calcium 9.6 mg/dL (8.4-10.2); Carbon Dioxide 38 mmol/L (22-30); Chloride 89 mmol/L (98-107); Estimated CRCL calculation 38 ml/min; Estimated Glomerular Filt Rate 52; Glucose 125 mg/dL (65-110); Potassium 3.6 mmol/L (3.4-5.0); Sodium 131 mmol/L (137-145)
[2021-03-19 08:17] LABS: Hematocrit 38.8 % (42.0-52.0); Hemoglobin 13.1 g/dL (14.0-18.0); Mean Corpuscular HGB Conc 33.8 g/dl (32-36); Mean Corpuscular Volume 97.7 fl (80-100); Mean Platelet Volume 9.9 fl (7.4-10.4); Platelet Count Result 276 k/mm3 (150-375); Red Blood Count 3.97 M/mm3 (4.6-6.20); Red Cell Distribution Width 13.8 % (11.5-14.5); White Blood Count 13.7 K/mm3 (4.5-10.0)
[2021-03-19] MEDS: DORNASE ALFA INH SOLN 1 MG/ML 2.5 ML AMP 2.5 MG INHALATION (08:43)
[2021-03-19] MEDS: BUDESONIDE RESPULE NEB 0.5 MG/2 ML AMP INHALATION (08:44)
[2021-03-19 08:58] VITALS: PULSE 77; RESP 20; O2SAT 97
[2021-03-19 10:55] VITALS: PULSE 77
[2021-03-19] MEDS: FUROSEMIDE 40 MG TABLET PO (10:55)
[2021-03-19] MEDS: MULTIVITAMINS THERAPEUTIC TAB (*BKC) 1 TABLET PO (10:55)
[2021-03-19] MEDS: PANTOPRAZOLE 40 MG TABLET PO (10:55)
[2021-03-19] MEDS: ASPIRIN 81 MG ENTERIC TABLET PO (10:55)
[2021-03-19] MEDS: CYANOCOBALAMIN 1,000 MCG TABLET 1000 MCG PO (10:55)
[2021-03-19] MEDS: METOPROLOL TARTRATE 12.5 MG TABLET PO (10:55)
[2021-03-19] MEDS: ERGOCALCIFEROL 50,000 UNIT CAPSULE 50000 UNITS PO (10:57)
[2021-03-19] MEDS: guaiFENesin 12 HR 600 MG TABCR 1200 MG PO (10:57)
[2021-03-19] MEDS: metOLazone 5 MG TABLET PO (10:57)
[2021-03-19] MEDS: ATORVASTATIN 20 MG TABLET PO (10:58)
[2021-03-19] MEDS: APIXABAN 5 MG TABLET PO (10:58)
[2021-03-19] MEDS: MAGNESIUM OXIDE 400 MG TABLET PO (10:58)
[2021-03-19 14:00] VITALS: BP 115/59; PULSE 61; RESP 12; O2SAT 95
[2021-03-19] MEDS: FLUTICASONE PROPIONATE 0.05% NA SPR 16 GM BTL (*BKC) 2 SPRAY NASAL (15:39)
[2021-03-19] MEDS: PSYLLIUM POWDER PACKET 1 PACKET PO (15:39)
[2021-03-19] MEDS: DOCUSATE SODIUM 100 MG CAPSULE PO (15:41)
== END 2021-03-19 16:40 | DRG 690 ==
LOC: ANHED 16:54 → ANH3MEDSUR 03-12 10:52 → ANH2MED 03-24 15:36 → ANH3MEDSUR 03-24 15:36 → ANHIMU 03-24 15:36
PROVIDERS: Nurse Practitioner Adult Health; Admitting Provider Internal Medicine; Emergency Provider Emergency Medicine; PCP Family Medicine; Visit Provider Student in an Organized Health Care Education/Training Program
DX: N39.0 Urinary tract infection, site not specified (principal); R78.81 Bacteremia; I48.20 Chronic atrial fibrillation, unspecified; J44.1 Chronic obstructive pulmonary disease with (acute) exacerbation; N17.9 Acute kidney failure, unspecified; Z16.12 Extended spectrum beta lactamase (ESBL) resistance; J96.11 Chronic respiratory failure with hypoxia; B96.20 Unspecified Escherichia coli [E. coli] as the cause of diseases classified elsewhere; Z20.822 Contact with and (suspected) exposure to COVID-19; E87.6 Hypokalemia; T50.2X5A Adverse effect of carbonic-anhydrase inhibitors, benzothiadiazides and other diuretics, initial encounter; G20 Parkinson's disease; F02.80 Dementia in other diseases classified elsewhere, unspecified severity, without behavioral disturbance, psychotic disturbance, mood disturbance, and anxiety; N18.32 Chronic kidney disease, stage 3b; Z66 Do not resuscitate; G25.81 Restless legs syndrome; R55 Syncope and collapse; I50.9 Heart failure, unspecified; K21.9 Gastro-esophageal reflux disease without esophagitis; E78.5 Hyperlipidemia, unspecified; E03.9 Hypothyroidism, unspecified; N20.0 Calculus of kidney; Z99.81 Dependence on supplemental oxygen; Z79.01 Long term (current) use of anticoagulants; I25.2 Old myocardial infarction; E53.8 Deficiency of other specified B group vitamins; Z96.653 Presence of artificial knee joint, bilateral; Z98.42 Cataract extraction status, left eye; Z98.41 Cataract extraction status, right eye; I95.89 Other hypotension; W18.30XA Fall on same level, unspecified, initial encounter; G47.00 Insomnia, unspecified
CPT/HCPCS: 36415; 70450; 71045; 74177; 80048; 80053; 81001; 82565; 82948; 83605; 84460; 84484; 85025; 85027; 85055; 85610; 87040; 87077; 87086; 87088; 87186; 87426; 93005; 94640; 94660; 96365; 97110; 97116; 97162; 97166; 97530; 97535; 99199; 99285; A9270; C9803; J0456; J0692; J0696; J1100; J7030; Q9967; U0003; U0005

== ENCOUNTER 2021-04-05 13:52 | Inpatient (IN) | payer MEDICARE, MEDICAID, SELFPAY ==
[2021-04-05] VITALS (10 sets, daily range): BP systolic 100–127; BP diastolic 45–72; PULSE 50–81; RESP 16–24; TEMP 36–36.6; O2SAT 91–100; BMI 34.3
--- NOTE | ~2021-04-05 | CT_ITS ---
EXAMINATION: CT brain wo con INDICATION: Altered mental status COMPARISON: 03/11/2021 TECHNIQUE: Standard unenhanced head CT. The dose-length product (DLP) was 681.00 mGy-cm. The mA was a djusted according to patient size. Iterative reconstruction technique was employed. FINDINGS: There is no acute intraparenchymal hemorrhage. No evidence of mass lesion. No evidence of a cute infarction. There is mild periventricular and subcortical hypodensity probably related to small vessel ischemic disease. There is mild prominence of the sulci and ventricles related to cerebral atr ophy. Intracranial calcified cerebral atherosclerosis is noted. There are no extra-axial collections. There is no mass effect or midline shift. Changes in the globes are likely from ocular lens surgery. There is a left frontal scalp soft tissue hematoma. The visualized sinuses and mastoid air cells are well aerated. IMPRESSION: 1. Left frontal scalp hematoma without acute intracranial abnormality. 2. Age related findings. Reviewed, dictated and finalized at location F. TIONSHIP MANAGER
--- NOTE | ~2021-04-05 | XR_ITS ---
EXAMINATION: XR retrograde pyelo w/stent RT INDICATION: Right distal ureteral stone and right flank pain TECHNIQUE: Five intraoperative fluoroscopic images are submitted for review. Total fluoroscopic time is 23.7 seconds. COMPARISON: None available FINDINGS: Fluoroscopic images demonstrate mild right hydroureteronephrosis with a stone in the distal ureter. A right internal ureteral stent is placed in expected position. IMPRESSION: 1. Right internal ureteral stent in expected position. Please refer to procedure note for full detail s. Reviewed, dictated and finalized at location F. SLIP COVER INSTALLER IMPRESSION: 1. Right internal ureteral stent in expected position. Please refer to procedur e note for full details.
--- NOTE | ~2021-04-05 | XR_ITS ---
EXAMINATION: XR chest 1V portable EXAM DATE: 04/09/2021 06:04 INDICATION: increased oxygen need . TECHNIQUE: Portable AP frontal chest x-ray was obtained. Comparison is made to prior examination from 04/05/2021. FINDINGS: There is mild cardiomegaly. There is indistinct reticulation with a bibasal predominance wh ich may indicate pulmonary edema or pneumonia. Small pleural effusions. No pneumothorax. Left midlung zone granuloma. IMPRESSION: 1. Ill-defined bilateral airspace disease, pneumonia or edema unchanged. 2. Cardiomegaly, small pleural effusions. Reviewed, dictated and finalized at location A. STOS SIDING INSTALLER
--- NOTE | ~2021-04-05 | XR_ITS ---
EXAMINATION: XR abdomen/kub 1V DATE: 04/07/2021 16:22 INDICATION: Bilateral kidney stones. TECHNIQUE: A supine view of the abdomen was obtained. COMPARISON: CT abdomen and pelvis 04/05/2021 FINDINGS: There is a right internal ureteral stent in expected position. There are no dilated loops o f bowel. There is a 7 mm stone in right kidney. IMPRESSION: 1. 7 mm stone in right kidney. 2. Right internal ureteral stent in expected position. Reviewed, dictated and finalized at location A. ICATIONS INSTRUCTOR
--- NOTE | ~2021-04-05 | CT_ITS ---
EXAMINATION: CT abdomen pelvis wo con DATE: 04/05/2021 15:39 INDICATION: Kidney stones and urinary tract infection TECHNIQUE: Computed tomography (CT) of the abdomen and pelvis was performed without intravenous contr ast. The dose-length product (DLP) was 1219.99 mGy-cm. Automated exposure control and iterative recon struction technique were employed. COMPARISON: 03/03/2021 FINDINGS: There are patchy opacities of the lung bases, likely infectious or inflammatory. Cardiomega ly is noted. Healing left-sided rib fractures are noted. There is a 1.3 cm cyst of the left hepatic l obe.. Punctate calcifications in an otherwise normal spleen likely represent healed granulomatous dis ease. The pancreas, gallbladder, and adrenal glands are normal. There is a 7 mm stone of the distal r ight ureter which causes mild hydroureteronephrosis. There is a 6 mm nonobstructing stone of the righ t kidney. The left kidney is located in the pelvis it demonstrates a partially duplicated collecting system. There is a 2 mm nonobstructing stone of the left kidney. No pathologically enlarged abdominal or pelvic lymph nodes are identified. There is no free intraperitoneal gas or evidence of bowel obst ruction. . There is severe lumbar spondylosis. IMPRESSION: 1. 7 mm stone of the distal right ureter causing mild hydroureteronephrosis. 2. Nonobstructing bilateral nephrolithiasis. Reviewed, dictated and finalized at location F. CANDY SPINNER
--- NOTE | ~2021-04-05 | XR_ITS ---
EXAMINATION: XR chest 1V INDICATION: Confusion TECHNIQUE: AP view of the chest is obtained. COMPARISON: 03/03/2021 FINDINGS: Diffuse airspace opacities persist but have decreased. There is no pleural effusion or pneu mothorax. The cardiomediastinal silhouette is stable. Shortening of the left distal clavicle may refl ect resection. IMPRESSION: 1. Diffuse lung disease with interval improvement, possibly resolving COVID 19 pneumonia. Reviewed, dictated and finalized at location F. UNT EXECUTIVE SOFTWARE SALES
--- NOTE | 2021-04-05 14:10 | ECG_ITS ---
Measurements Intervals [place] Rate: 65 P: [place]: 0 QRS: -40 QRSD: 161 T: 9 QT: 473 QTc: 495 Interpretive Statements SINUS RHYTHM WITH FIRST DEGREE AV BLOCK NON-CONDUCTED PAC LEFT AXIS DEVIATION RIGHT BUNDLE BRANCH BLOCK BASELINE ARTIFACT- I, II, III, AVR, AVL, AVF, V1-V6 ABNORMAL ECG Electronically Signed On 04-05-2021 16:20:30 DIRECTOR OF ADMISSIONS by Stevo Cho D.O.
[2021-04-05 15:10] LABS: Add Urine Microscopic? YES; Appearance Urine Cloudy (Clear); Bacteria Urine Trace /hpf; Bilirubin Urine Negative (Negative); Blood Urine 2+ (Negative); Color Urine Yellow (Yellow); Glucose Urine UA Negative (Negative); Ketones Urine Negative (Negative); Leukocyte Esterase Ur 3+ LEU/UL (Negative); Mucus Urine Rare /lpf; Nitrate Urine Negative (Negative); Protein Urine Negative (Negative); RBC Urine >75 /hpf (0-2); Specific Grav Ur 1.006 (1.001-1.035); Squamous Epithelial Cell Urine Rare /hpf (Few); Urobilinogen Urine Negative mg/dL (<2.0); WBC Urine >75 /hpf
[2021-04-05 15:38] LABS: Basophils Percent Auto 0.2 % (0.2-1.2); Eosinophils Absolute Auto 0.2 K/mm3 (0-0.3); Eosinophils Percent Auto 2.2 % (0-4.4); Hematocrit 31.1 % (42.0-52.0); Hemoglobin 10.4 g/dL (14.0-18.0); Immature Granulocyte Absolute 0.04 K/mm3 (0.00-0.031); Immature Granulocyte Percent A 0.5 % (0-0.5); Lymphocytes Absolute Auto 2.05 K/mm3 (0.9-3.2); Lymphocytes Percent Auto 24.2 % (18.3-44.2); Mean Corpuscular HGB Conc 33.4 g/dl (32-36); Mean Corpuscular Hemoglobin 32.8 pg (26-34); Mean Corpuscular Volume 98.1 fl (80-100); Mean Platelet Volume 10.2 fl (7.4-10.4); Monocytes Absolute Auto 0.9 K/mm3 (0.1-0.6); Monocytes Percent Auto 10.2 % (2.6-8.5); Neutrophils Absolute Auto 5.3 K/mm3 (1.3-6.7); Neutrophils Percent Auto 62.7 % (45.5-73.1); Platelet Count Result 160 k/mm3 (150-375); Red Blood Count 3.17 M/mm3 (4.6-6.20); Red Cell Distribution Width 14.3 % (11.5-14.5); White Blood Count 8.5 K/mm3 (4.5-10.0)
[2021-04-05 15:48] LABS: INR 1.3; Prothrombin Time 15.9 Seconds (11.1-14.7)
[2021-04-05 15:49] LABS: Partial Thromboplastin Time 30.4 SECONDS (22.3-36.8)
[2021-04-05 15:54] LABS: Alanine Aminotransferase 7 U/L (4-50); Albumin Level 3.5 g/dL (3.5-5.1); Alkaline Phosphatase 86 U/L (38-126); Anion Gap 6 mmol/L (8-16); Aspartate Amino Transferase 43 U/L (17-59); Bilirubin,Total 0.4 mg/dL (0.2-1.3); Blood Urea Nitrogen 23 mg/dL (9-20); Calcium 8.7 mg/dL (8.4-10.2); Carbon Dioxide 36 mmol/L (22-30); Chloride 86 mmol/L (98-107); Estimated CRCL calculation 41 ml/min; Estimated Glomerular Filt Rate > 60; Glucose 123 mg/dL (65-110); Potassium 3.2 mmol/L (3.4-5.0); Sodium 128 mmol/L (137-145)
[2021-04-05] MEDS: SODIUM CHLORIDE 0.9% IV 1,000 ML 999 ML IV CONT (16:00)
[2021-04-05] MEDS: ERTAPENEM 1 GM/NS 50 ML 1 GM/50 ML BAG IVPB (16:00)
--- NOTE | 2021-04-05 16:07 | ED.AMS ---
HPI - Altered Mental Status General Chief Complaint: Altered Mental Status Stated Complaint: AMS Time Seen by Provider: 04/05/21 14:02 Source: RN notes reviewed History of Present Illness HPI narrative: Patient presents emergency department from [facility] via EMS for altered mental status. Per family the patient has been more lethargic and mildly confused over the past 2 days patient has a history of recent admission for UTI and possible COVID-19 patient is awake and alert x3 but states he has been feeling more tired he denies any fevers or chills chest pain shortness of breath abdominal pain nausea or vomiting. The patient does have bruising on his face from a recent fall for which she had been evaluated at [facility] and had negative work-up at that time Related Data Home Medications Medication Instructions Recorded Confirmed apixaban 5 mg tablet 5 mg PO BID 01/15/21 03/12/21 aspirin 81 mg capsule 81 mg PO DAILY 01/15/21 03/12/21 atorvastatin 20 mg tablet 20 mg PO QAM 01/15/21 03/12/21 budesonide 0.5 mg/2 mL suspension 0.5 mg INHALATION DAILY 01/15/21 03/12/21 for nebulization carbidopa 25 mg-levodopa 100 mg 2 tablet PO QID tablet 01/15/21 03/12/21 tablet cetirizine 10 mg tablet 10 mg PO DAILY 01/15/21 03/12/21 docusate sodium 100 mg capsule 100 mg PO BID 01/15/21 03/12/21 donepezil 5 mg tablet 10 mg PO HS tablet 01/15/21 03/12/21 fluticasone propionate 50 2 spray INTRANASAL DAILY 01/15/21 03/12/21 mcg/actuation nasal spray,suspension furosemide 40 mg tablet 40 mg PO BID 01/15/21 03/12/21 ipratropium 0.5 mg-albuterol 3 mg 3 ml INHALATION Q6H PRN 01/15/21 03/12/21 (2.5 mg base)/3 mL nebulization soln levothyroxine 75 mcg tablet 75 mcg PO DAILY 01/15/21 03/12/21 mecobalamin (vitamin B12) 1,000 1,000 mcg SUBLINGUAL DAILY 01/15/21 03/12/21 mcg disintegrating tablet,sublingual metoprolol tartrate 25 mg tablet 12.5 mg PO BID tablet 01/15/21 03/12/21 multivitamin 1 tablet PO DAILY 01/15/21 03/12/21 omeprazole 40 mg capsule,delayed 40 mg PO BID 01/15/21 03/12/21 release potassium chloride 10 mEq 10 meq PO DAILY 01/15/21 03/12/21 capsule,extended release pramipexole 0.125 mg tablet 0.125 mg PO QHS 01/15/21 03/12/21 trazodone 50 mg tablet 25 mg PO QHS 01/15/21 03/12/21 Certavite-Antioxidant 1 tablet PO DAILY 03/12/21 03/12/21 Metamucil (with sugar) 1 ea PO DAILY 03/12/21 03/12/21 Mucinex 1,200 mg PO BID 03/12/21 03/12/21 albuterol sulfate [Ventolin HFA] 2 puff INHALATION QID PRN 03/12/21 03/12/21 magnesium oxide 400 mg PO DAILY 03/12/21 03/12/21 Allergies Allergy/AdvReac Type Severity Reaction Status Date / Time diphenhydramine Allergy Mild Unknown Verified 03/11/21 21:32 [From Benadryl] metoclopramide [From Reglan] Allergy Mild Unknown Verified 03/11/21 21:32 prochlorperazine Allergy Mild Unknown Verified 03/11/21 21:32 [From Compazine] terbinafine [From Lamisil] Allergy Mild Unknown Verified 03/11/21 21:32 Tetanus Vaccines and Toxoid Allergy Mild Unknown Verified 03/11/21 21:32 Review of Systems Review of Systems: Gen.: Denies fevers or chills ENT: Denies congestion Respiratory: Denies shortness of breath or cough CV: Denies chest pain or palpitations GI: Denies abdominal pain nausea, emesis or diarrhea denies burning, urgency, frequency or hematuria Musculoskeletal: Denies back pain or muscle pain Neuro: See HPI Skin: Denies rash Except as documented, all other systems reviewed and negative [facility] Past Medical History Medical History Arthritis Atrial fibrillation Chronic back pain Chronic kidney disease, stage 3b Chronic respiratory failure with hypoxia, on home O2 therapy Congestive heart failure COPD (chronic obstructive pulmonary disease) Dementia Environmental allergies GERD (gastroesophageal reflux disease) Heart attack Hyperlipidemia Hypothyroidism Insomnia Parkinson disease Paroxysmal atrial fibrillat
[2021-04-05 16:20] LABS: Lactic Acid Reflex 1.1 mmol/L (0.7-2.1)
--- NOTE | 2021-04-05 16:30 | PM.IMHP ---
H&P: HPI History of Present Illness Date/Time: 04/05/21 16:30 Chief Complaint: Confusion. Narrative: This is a pleasant 85-year-old female with dementia, Parkinson's, atrial fibrillation, chronic kidney disease, chronic respiratory failure on oxygen, congestive heart failure, COPD, and several other comorbidities who presented to the emergency department earlier today via EMS for evaluation of confusion. He is alert and oriented x3 at the time my evaluation however he is only a fair historian and as such some of the following is supplemented via a review of his electronic medical records as well as discussions with the patient's at bedside, with the patient's permission. He is known to the hospitalist service with an admission in late February with ESBL E coli urinary tract infection and bacteremia for which he was treated with 10 days of cefepime. About 1 week after discharge he sustained a fall and was hospitalized at [facility] for a few days though he sustained no acute injuries, luckily. He has been at [facility] for rehab and has been doing quite well. Unfortunately over the past 3 days he seems to be a little more lethargic and confused than usual, for instance states that he has been staring off into space and seeing things that are not present. She requested that he be sent in today for evaluation and his urinalysis is once again suspicious for urinary tract infection. A subsequent CT of the abdomen and pelvis showed a 7 mm stone of the distal right ureter causing mild hydroureteronephrosis and he is currently awaiting transfer to OR for cystoscopy and stent placement. It should also be noted that the patient tested positive for SARS-CoV-2 by PCR today; he had 2 positive rapid COVID antigen tests when he was hospitalized in February however his PCR at that time was negative. Chest x-ray today shows diffuse lung disease with interval improvement. The patient himself has no specific complaints any specifically denies headache, fever, chills, sweats, sinus ingestion, sore throat, shortness of breath, nausea, vomiting, diarrhea, and dysuria. He still has a mild cough but is not really productive. Review of Systems Review of Systems: Twelve systems were reviewed and are negative except for as per HPI. [facility] Past Medical History Medical History (Updated 04/05/21 @ 23:08 by Samantha Sims PA-C) Arthritis Atrial fibrillation Chronic back pain Chronic kidney disease, stage 3b Chronic obstructive pulmonary disease Chronic respiratory failure with hypoxia, on home O2 therapy Congestive heart failure Dementia Environmental allergies Gastroesophageal reflux disease Heart attack Hyperlipidemia Hypothyroidism Insomnia Parkinson disease Paroxysmal atrial fibrillation Restless leg syndrome Vitamin B12 deficiency B12 level normal 02/18/2021 Surgical History Surgical History History of bilateral inguinal hernia repair History of colonoscopy with polypectomy History of repair of left rotator cuff History of repair of right rotator cuff History of total bilateral knee replacement Status post cataract extraction of both eyes with insertion of intraocular lens Family History Family History Mother Stomach cancer Father Alzheimer disease Sibling Diabetes mellitus Social History Social History (Updated 04/05/21 @ 23:01 by Samantha Sims PA-C) Social History: The patient lives at assisted living at [facility] with his of 42 years. They have 1 son and 1 daughter. 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 Surrogate decision maker: Regina Billumair, . Code status: Full code. Meds Home Medications and Allergies Home Medications Medication Instructions Recorded Confirmed Type apixaban 5 mg tablet 5 mg PO BID 01/15/21 04/05/21 History aspirin
--- NOTE | 2021-04-05 16:34 | WPDHPUPDATE1 ---
History and Physical Update Update Date/Time: 04/05/21 16:34 History and Physical has been reviewed, including an updated exam of the patient. There are NO changes in the patient's condition. Risks, benefits, and alternatives have been discussed and questions answered. Patient agrees to proceed with procedure.
--- NOTE | 2021-04-05 16:34 | WPDURCON ---
Assessment and Plan Assessment and plan (1) UTI due to extended-spectrum beta lactamase (ESBL) producing Escherichia coli: Code(s): N39.0 - Urinary tract infection, site not specified; B96.29 - Other Escherichia coli [E. coli] as the cause of diseases classified elsewhere; Z16.12 - Extended spectrum beta lactamase (ESBL) resistance Status: Acute Assessment and Plan: plan for coverage with carbapenem given prior MDR ESBL organism (2) Acute UTI: Code(s): N39.0 - Urinary tract infection, site not specified Status: Acute (3) Ureteral stone: Code(s): N20.1 - Calculus of ureter Status: Acute Assessment and Plan: 7 mm right distal stone with mild hydro, UTI -option discussed with with expectant management vs placing ureter stent and delayed therapy with URS, HLL vs ESWL when infection has cleared -plan for cysto, RPG and right stent placement today, risks, benefits, alternatives, nature of procedure and possible complications reviewed. risks including but not limited to bleeding, infection, damage to surrounding structures, need for PCN tube by IR. The side effects (irritative voiding symptoms, hematuria, urgency, pain similar to stone pain,)and temporary nature of the stent was emphasized, they understand we will not be treating the stone and it will require additional procedure down the road when UTI has been treated. we discussed anesthesia and positioning risks of heart attack, stroke, blood clots, PE, and disability. they voiced understanding all ? answered (4) Hydronephrosis: Code(s): N13.30 - Unspecified hydronephrosis Status: Acute Urology Consult Note HPI Date Seen: 04/05/21 Primary Care Provider: Barb Mejias MD Consult Narrative Narrative: Breezy Cisneros is a 85 year old male being admitted from [facility] from EMS due to AMS. He has recent hx of pneumonia and ESBL E coli UTI. CT scan performed today shows 7 mm right distal stone with hydro. Afebrile, normal wbc, ua with leukocytes, blood and negative for nitrite. He has a left pelvic kidney with malrotation. He had a fall recently and was evaluated at [facility] for facial injuries. He has a prior history of stone in [place]. he does not remember if he ever required treatment. He has low back pain currently for which he attributes to working with physical therapy. Denies fevers or chills, endorses confusion and cloudy urine Review of Systems Constitutional: Constitutional: Reports as per HPI and Reports no additional constitutional complaints Eyes: Eyes: Reports no additional eye complaints ENT: Reports as per HPI Cardiovascular: Cardiovascular: Denies dyspnea Respiratory: Respiratory: Denies pain on inspiration and Denies dyspnea on exertion Gastrointestinal: Gastrointestinal: Reports no additional gastrointestinal complaints Genitourinary: Genitourinary: Reports no additional male genitourinary complaints Musculoskeletal: Musculoskeletal: Reports no additional musculoskeletal complaints Neurologic: Reports system reviewed and no additional complaints, except as documented Psychiatric: Psychiatric: Reports no additional psychiatric complaints Endocrine: Endocrine: Reports no additional endocrine complaints Hematologic/Lymphatic: Hematologic/Lymphatic: Reports no additional hematologic/lymphatic complaints Allergic/Immunologic: Allergic/Immunologic: Reports no additional allergic/immunologic complaints PMFSH Past Medical History Medical History Arthritis Atrial fibrillation Chronic back pain Chronic kidney disease, stage 3b Chronic respiratory failure with hypoxia, on home O2 therapy Congestive heart failure COPD (chronic obstructive pulmonary disease) Dementia Environmental allergies GERD (gastroesophageal reflux disease) Heart attack Hyperlipidemia Hypothyroidism Insomnia Parkinson disease Paroxysmal atrial fibrilla
--- NOTE | 2021-04-05 16:50 | WPDANESEPP ---
Anes - Eval Pre Procedure Procedure: Operation Date: 04/05/21 17:30 Proposed Procedures p Cysto, RPG, Stone Ext, Stent Placement(Right) - Preet Brown MD Date/Time: 04/05/21 16:50 Surgeon: Dr. Brown Preop Diagnosis: Right distal stone with hydronephrosis Pre Op Diagnosis: AMS Patient Data Age: 85 Gender: M Height: 1.6 m Weight: 83 kg Last Vital Signs Temp 97.8 F 04/05/21 13:59 Pulse 56 L 04/05/21 13:59 Resp 16 04/05/21 13:59 BP 127/72 04/05/21 13:59 Pulse Ox 97 04/05/21 13:59 Allergies Allergy/AdvReac Type Severity Reaction Status Date / Time diphenhydramine Allergy Mild Unknown Verified 03/11/21 21:32 [From Benadryl] metoclopramide [From Reglan] Allergy Mild Unknown Verified 03/11/21 21:32 prochlorperazine Allergy Mild Unknown Verified 03/11/21 21:32 [From Compazine] terbinafine [From Lamisil] Allergy Mild Unknown Verified 03/11/21 21:32 Tetanus Vaccines and Toxoid Allergy Mild Unknown Verified 03/11/21 21:32 Home Medications Medication Instructions Recorded Confirmed Type apixaban 5 mg tablet 5 mg PO BID 01/15/21 03/12/21 History aspirin 81 mg capsule 81 mg PO DAILY 01/15/21 03/12/21 History atorvastatin 20 mg tablet 20 mg PO QAM 01/15/21 03/12/21 History budesonide 0.5 mg/2 mL suspension 0.5 mg INHALATION DAILY 01/15/21 03/12/21 History for nebulization carbidopa 25 mg-levodopa 100 mg 2 tablet PO QID tablet 01/15/21 03/12/21 History tablet cetirizine 10 mg tablet 10 mg PO DAILY 01/15/21 03/12/21 History docusate sodium 100 mg capsule 100 mg PO BID 01/15/21 03/12/21 History donepezil 5 mg tablet 10 mg PO HS tablet 01/15/21 03/12/21 History fluticasone propionate 50 2 spray INTRANASAL DAILY 01/15/21 03/12/21 History mcg/actuation nasal spray,suspension furosemide 40 mg tablet 40 mg PO BID 01/15/21 03/12/21 History ipratropium 0.5 mg-albuterol 3 mg 3 ml INHALATION Q6H PRN 01/15/21 03/12/21 History (2.5 mg base)/3 mL nebulization soln levothyroxine 75 mcg tablet 75 mcg PO DAILY 01/15/21 03/12/21 History mecobalamin (vitamin B12) 1,000 1,000 mcg SUBLINGUAL DAILY 01/15/21 03/12/21 History mcg disintegrating tablet,sublingual metoprolol tartrate 25 mg tablet 12.5 mg PO BID tablet 01/15/21 03/12/21 History multivitamin 1 tablet PO DAILY 01/15/21 03/12/21 History omeprazole 40 mg capsule,delayed 40 mg PO BID 01/15/21 03/12/21 History release potassium chloride 10 mEq 10 meq PO DAILY 01/15/21 03/12/21 History capsule,extended release pramipexole 0.125 mg tablet 0.125 mg PO QHS 01/15/21 03/12/21 History trazodone 50 mg tablet 25 mg PO QHS 01/15/21 03/12/21 History metolazone 5 mg tablet 5 mg PO 3XW #30 tablet 02/17/21 03/12/21 Rx ergocalciferol (vitamin D2) 1,250 1,250 mcg PO WEEKLY #12 cap 02/20/21 03/12/21 Rx mcg (50,000 unit) capsule Certavite-Antioxidant 1 tablet PO DAILY 03/12/21 03/12/21 History Metamucil (with sugar) 1 ea PO DAILY 03/12/21 03/12/21 History Mucinex 1,200 mg PO BID 03/12/21 03/12/21 History albuterol sulfate [Ventolin HFA] 2 puff INHALATION QID PRN 03/12/21 03/12/21 History magnesium oxide 400 mg PO DAILY 03/12/21 03/12/21 History amoxicillin-pot clavulanate 1 tablet PO Q12H 11 Days #22 tablet 03/17/21 Rx [Augmentin] Laboratory Tests 04/05/21 04/05/21 04/05/21 14:58 15:29 15:29 WBC 8.5 K/mm3 K/mm3 (4.5-10.0) RBC 3.17 M/mm3 L M/mm3 (4.6-6.20) Hgb 10.4 g/dL L g/dL (14.0-18.0) Hct 31.1 % L % (42.0-52.0) MCV 98.1 fl fl (80-100) MCH 32.8 pg pg (26-34) MCHC 33.4 g/dl g/dl (32-36) RDW 14.3 % % (11.5-14.5) Plt Count 160 k/mm3 k/mm3 (150-375) MPV 10.2 fl fl (7.4-10.4) Immature Gran % (Auto) 0.5 % % (0-0.5) Neut % (Auto) 62.7 % % (45.5-73.1) Lymph % (Auto) 24.2 % % (18.3-44.2) [place] % (Auto) 10.2 % H % (2.6-8.5) Eos % (Auto) 2.2 % % (0-4.4) B
[2021-04-05 16:51] LABS: SARS-CoV-2 RNA PCR Positive
--- NOTE | 2021-04-05 17:15 | WPDANESEFPP ---
Anes - Eval Final PreProcedure Day of Procedure 04/05/21 17:15 Patient weight: obese Heart: regular rate and rhythm Lungs: clear to auscultation and normal air movement Airway: Mallampati scale class II Neurological: alert and oriented Last oral intake: >/= 8 hours ASA classification: IV Emergent: yes Anesthetic plan: proceed Anesthesia type and monitoring: general GIVS and standard monitoring Results Review: All pre-operative results and documents have been reviewed as part of the pre-operative evaluation. Informed Consent: The patient's anesthetic plan and its attendant risks and benefits were discussed with the patient/family/POA. Questions were solicited and answers provided to the satisfaction of the patient/family/POA.
--- NOTE | 2021-04-05 18:41 | W.PM.PROC2 ---
Procedure Note - Detailed Date of Procedure 04/05/21 Pre-op Diagnosis UTI/right kidney stone hyponatremia/metabolic en Post-op Diagnosis same Procedure Performed cystoscopy, right retrograde pyelogram, right ureter stent placement Surgeon Preet Brown MD Cardiac Cath Lab Manager none Anesthesia general Indications right ureter stone, MDR UTI, hydronephrosis Findings expected/anticipated, right ureter stone, mild hydronephrosis and hydroureter Description of Procedure Patient was brought back to the operating room and given general anesthesia via ET tube. He was prepped and draped in sterile fashion with Betadine to the genitalia. Care was taken to not hyperflex or hyperextend any extremity all bony prominences thoroughly padded. He received IV ertapenem in the ER preoperatively. After appropriate time out was performed, a 22 Fr cystoscope was inserted, the urethra was grossly normal, prostate had trilobar hypertrophy with intravesical protrusion. The bladder mucosa was inflamed and debris was irrigated out of the bladder which limited visibility, no definitive tumor was seen. On electric range preparer fluoroscopy, stone was seen in the right distal ureter and right kidney as radio-opaque density. The right ureteral orifice was identified and a open ended catheter was inserted , gentle retrograde pyelography was performed to outline collecting system. He had mild hydronephrosis and hydroureter to the level of the stone. A Optifreezeson wire was placed under fluoroscopic guidance up into the right kidney. A 4.8 Fr variable length stent was then deployed, good curl was seen fluoroscopically in the kidney and both fluoroscopically and endoscopically int he bladder. All instruments and wires were removed a 16 Fr arteaga was placed with 10cc in the balloon to maximally drain the bladder was placed. Patient was awoken and transferred to recovery in stable condition. He will be admitted for IV antibiotics. Implants right 4.8 variable length stent Drains Yes (16 Fr arteaga) Packing No Pathology none sent Complications No immediate complications Condition stable Disposition PACU
[2021-04-05] MEDS: LACTATED RINGERS 1,000 ML 30 ML IV CONT (18:55)
--- NOTE | 2021-04-05 22:50 | ADMGEN ---
This patient, Breezy Cisneros, was admitted to [facility] Room 306-01. Patient/family oriented to hospital policies and general routines including ID bracelet, bed and alarms, visiting hours, pain management, procedures, bathroom and other care routines, personal items, smoking policy, room service/diet, and visiting hours. Information on how to activate the Rapid Response Team has been discussed. Patient/Family are encouraged to report perceived risks to care and to ask questions if they do not understand what they are told or what they should do.
[2021-04-06] VITALS (8 sets, daily range): BP systolic 112–137; BP diastolic 41–89; PULSE 66–134; RESP 16–20; TEMP 36.1–36.6; O2SAT 93–99
[2021-04-06 00:13] LABS: Anion Gap 7 mmol/L (8-16); Blood Urea Nitrogen 18 mg/dL (9-20); CRP 4.4 mg/dL (<1.0); Calcium 8.8 mg/dL (8.4-10.2); Carbon Dioxide 34 mmol/L (22-30); Chloride 90 mmol/L (98-107); Estimated CRCL calculation 57 ml/min; Estimated Glomerular Filt Rate > 60; Glucose 133 mg/dL (65-110); Lactate Dehydrogenase 667 U/L (313-618); Magnesium 1.5 mg/dL (1.6-2.3); Potassium 3.1 mmol/L (3.4-5.0); Sodium 131 mmol/L (137-145)
[2021-04-06 00:33] LABS: NT Pro B Type Natriuretic Pept 101 pg/mL (5-100)
[2021-04-06] MEDS: SODIUM CHLORIDE 0.9% IV 1,000 ML 100 ML IV CONT (06:32)
[2021-04-06 08:04] LABS: Basophils Percent Auto 0.4 % (0.2-1.2); Eosinophils Absolute Auto 0.1 K/mm3 (0-0.3); Eosinophils Percent Auto 1.4 % (0-4.4); Hematocrit 32.4 % (42.0-52.0); Hemoglobin 10.8 g/dL (14.0-18.0); Immature Granulocyte Absolute 0.02 K/mm3 (0.00-0.031); Immature Granulocyte Percent A 0.3 % (0-0.5); Lymphocytes Absolute Auto 1.39 K/mm3 (0.9-3.2); Lymphocytes Percent Auto 19.3 % (18.3-44.2); Mean Corpuscular HGB Conc 33.3 g/dl (32-36); Mean Corpuscular Hemoglobin 32.9 pg (26-34); Mean Corpuscular Volume 98.8 fl (80-100); Mean Platelet Volume 10.7 fl (7.4-10.4); Monocytes Absolute Auto 0.8 K/mm3 (0.1-0.6); Monocytes Percent Auto 11.5 % (2.6-8.5); Neutrophils Absolute Auto 4.9 K/mm3 (1.3-6.7); Neutrophils Percent Auto 67.1 % (45.5-73.1); Platelet Count Result 162 k/mm3 (150-375); Red Blood Count 3.28 M/mm3 (4.6-6.20); Red Cell Distribution Width 14.3 % (11.5-14.5); White Blood Count 7.2 K/mm3 (4.5-10.0)
[2021-04-06 08:27] LABS: Anion Gap 8 mmol/L (8-16); Blood Urea Nitrogen 16 mg/dL (9-20); Calcium 8.8 mg/dL (8.4-10.2); Carbon Dioxide 34 mmol/L (22-30); Chloride 90 mmol/L (98-107); Estimated CRCL calculation 51 ml/min; Estimated Glomerular Filt Rate > 60; Glucose 120 mg/dL (65-110); Magnesium 1.6 mg/dL (1.6-2.3); Sodium 132 mmol/L (137-145)
[2021-04-06 09:19] LABS: Creatinine Urine 80.4 mg/dL
[2021-04-06 09:29] LABS: Sodium Urine Random 79 meq/L
--- NOTE | 2021-04-06 10:51 | WPDUROPN2 ---
Progress Note: A&P Assessment and Plan (1) SARS-CoV-2 positive: Code(s): U07.1 - COVID-19 Status: Acute Assessment and Plan: management per hospitalist (2) Urinary tract infection: Code(s): N39.0 - Urinary tract infection, site not specified Status: Acute Assessment and Plan: hx of ESBL -on carbapenem await culture (3) Hydroureteronephrosis: Code(s): N13.30 - Unspecified hydronephrosis Status: Acute (4) Right ureteral stone: Code(s): N20.1 - Calculus of ureter Status: Acute Assessment and Plan: POD#1 s/p R RPG/stent placement maintain arteaga for maximal drainage, await culture -outpt stone management when UTI has been treated (5) Acute UTI: Code(s): N39.0 - Urinary tract infection, site not specified Status: Acute Assessment and Plan: continue carbapenem, await urine and blood cultures Subjective Subjective Date/Time Seen: 04/06/21 10:51 Review of Systems Constitutional: Constitutional: Reports no additional constitutional complaints Eyes: Eyes: Reports no additional eye complaints Cardiovascular: Cardiovascular: Reports as per HPI Gastrointestinal: Gastrointestinal: Reports no additional gastrointestinal complaints Genitourinary: Genitourinary: Reports no additional male genitourinary complaints Musculoskeletal: Musculoskeletal: Reports no additional musculoskeletal complaints Integumentary/Breasts: Skin/Breast: Reports system reviewed and no additional complaints, except as docu Neurologic: Reports as per HPI Psychiatric: Psychiatric: Reports as per HPI Exam Const: General: cooperative, comfortable and no acute distress HENMT: Head: normocephalic and hematoma Face and sinus: ecchymosis Eyes: Conjunctivae: conjunctivae normal Sclera: sclerae normal Resp: Effort & Inspection: normal respiratory effort, able to speak in complete sentences and no respiratory distress GI: Inspection: normal to inspection GI Palp: No abdominal tenderness : Male General Exam: Yes normal external exam Urinary Catheter: Urinary Catheter: patent and draining and urine dark Back/Spine/Pelvis: Back: no CVA tenderness Neuro: General: oriented to person, oriented to place and oriented to time Extrem: General: normal to inspection Objective Data Vital Signs Vital Signs: Vital Signs - 24 hr 04/05/21 13:59 04/05/21 18:08 04/05/21 18:55 Temperature 36.6 C 36.0 C L Pulse Rate 56 L 74 81 Respiratory Rate 16 18 16 Blood Pressure 127/72 111/70 115/59 L Pulse Oximetry 97 100 100 04/05/21 19:09 04/05/21 19:20 04/05/21 19:35 Temperature 36.0 C L Pulse Rate 60 81 72 Respiratory Rate 16 24 H 20 Blood Pressure 115/59 L 120/59 L 118/67 Pulse Oximetry 95 91 98 04/05/21 19:50 04/05/21 20:00 04/05/21 20:15 Temperature 36.2 C L 36.4 C Pulse Rate 78 58 L 50 L Respiratory Rate 20 18 18 Blood Pressure 125/59 L 103/48 L 101/51 L Pulse Oximetry 100 94 97 04/05/21 20:45 04/06/21 00:00 04/06/21 00:38 Temperature 36.4 C L 36.6 C Pulse Rate 70 134 H 79 Respiratory Rate 20 20 17 Blood Pressure 100/45 L 114/89 Pulse Oximetry 100 94 98 04/06/21 01:48 04/06/21 04:00 04/06/21 08:25 Temperature 36.3 C L Pulse Rate 85 Respiratory Rate 20 Blood Pressure 122/41 L Pulse Oximetry 98 97 95 Intake/Output Intake/Output: Intake & Output 04/03/21 04/04/21 04/05/21 04/06/21 23:59 23:59 23:59 23:59 Intake Total 1150 336 Output Total 680 900 Balance 470 -564 Meds/Results Medications: Active Medications Generic Name Dose Route Start Last Admin Trade Name Geremiasq PRN Reason Stop Dose Admin Ertapenem 1 gm in 50 mls @ 100 mls/hr 04/06/21 18:00 Invanz 1 Gm/Ns 50 Ml IVPB Q24H MERC[facility]ES Radiology Results: ITS Impressions Head CT 04/05/21 14:42 IMPRESSION: 1. Left frontal scalp hematoma without acute intracranial abnormality. 2. Age related findings. Chest X-Ray 04/05
--- NOTE | 2021-04-06 11:06 | P.PNIM_ITS ---
Progress Note: A&P Assessment and Plan (1) Right ureteral stone: Code(s): N20.1 - Calculus of ureter Status: Acute Assessment and Plan: CT on presentation showed 7 mm stone at the distal right ureter causing mild hydroureteronephrosis * Appreciate urology consultation * Underwent cystoscopy with right retrograde pyelogram and right ureteral stent placement on 04/05/21 * Tolerated the procedure well. Pain is well controlled * Continue Nice catheter. Dark reddish urine noted today * He will need outpatient stone management (2) Hydroureteronephrosis: Code(s): N13.30 - Unspecified hydronephrosis Status: Acute Assessment and Plan: As detailed above. (3) Urinary tract infection: Code(s): N39.0 - Urinary tract infection, site not specified Status: Acute Assessment and Plan: UA grossly abnormal on presentation * Urine culture pending * Continue IV ertapenem awaiting culture results. Tailor antibiotics accordingly * He had recent ESBL UTI about 1 month ago for which he completed 10 days of cefepime * Blood cultures pending * Patient is afebrile. No leukocytosis (4) Pneumonia due to COVID-19 virus: Code(s): U07.1 - COVID-19; J12.82 - Pneumonia due to coronavirus disease 2019 Status: Acute Assessment and Plan: Recent admission with two positive rapid COVID test (03/11 and 03/17)and 2 negative PCR COVID test (03/12 and 03/15). CXR at that time did show diffuse bilateral pneumonia, but that time patient was asymptomatic and no treatment for COVID-19 was initiated * On presentation, found to have a positive COVID test 04/05/21 * CXR 04/05 shows resolving pneumonia. Patient remains asymptomatic and stable on his home oxygen requirements * At this time holding on COVID treatment. Not a candidate for dexamethasone and remdesivir * Continuing isolation precautions. Will discuss with engine lathe operator tomorrow to determine when this can be discontinued * Patient did complete his vaccination and booster (5) Electrolyte abnormality: Code(s): E87.8 - Other disorders of electrolyte and fluid balance, not elsewhere classified Status: Acute Assessment and Plan: * Hyponatremia: Sodium 132 today. Improved with IV fluids which have since been discontinued. Continue to monitor * Hypokalemia: Potassium 3.0 today. Administer 40 mEq p.o. KCl * Hypomagnesemia: Magnesium 1.6 today. Administer 2 g IV magnesium sulfate. Resume home magnesium oxide supplement 400 mg daily * Monitor BMP and magnesium levels tomorrow (6) Chronic respiratory failure with hypoxia, on home O2 therapy: Code(s): J96.11 - Chronic respiratory failure with hypoxia; Z99.81 - Dependence on supplemental oxygen Status: Acute Assessment and Plan: At baseline on 3 L with activity and with rest and with O2 bleed in to CPAP at night * Remaining stable on his baseline oxygen requirement. (7) Congestive heart failure: Qualifiers: Heart failure chronicity: unspecified Heart failure type: unspecified Qualified Code(s): I50.9 - Heart failure, unspecified Code(s): I50.9 - Heart failure, unspecified Status: Acute Assessment and Plan: Clinically compensated. * IV fluids discontinued to avoid over-hydration. Monitor volume status. * Resume furosemide tomorrow * Continue metoprolol (8) Chronic obstructive pulmonary disease: Code(s): J44.9 - Chronic obstructive pulmonary disease, unspecified Status: Acute
--- NOTE | 2021-04-06 11:06 | PM.IMPN ---
Progress Note: A&P Assessment and Plan (1) Right ureteral stone: Code(s): N20.1 - Calculus of ureter Status: Acute Assessment and Plan: CT on presentation showed 7 mm stone at the distal right ureter causing mild hydroureteronephrosis Appreciate urology consultation Underwent cystoscopy with right retrograde pyelogram and right ureteral stent placement on 04/05/21 Tolerated the procedure well. Pain is well controlled Continue Nice catheter. Dark reddish urine noted today He will need outpatient stone management (2) Hydroureteronephrosis: Code(s): N13.30 - Unspecified hydronephrosis Status: Acute Assessment and Plan: As detailed above. (3) Urinary tract infection: Code(s): N39.0 - Urinary tract infection, site not specified Status: Acute Assessment and Plan: UA grossly abnormal on presentation Urine culture pending Continue IV ertapenem awaiting culture results. Tailor antibiotics accordingly He had recent ESBL UTI about 1 month ago for which he completed 10 days of cefepime Blood cultures pending Patient is afebrile. No leukocytosis (4) Pneumonia due to COVID-19 virus: Code(s): U07.1 - COVID-19; J12.82 - Pneumonia due to coronavirus disease 2019 Status: Acute Assessment and Plan: Recent admission with two positive rapid COVID test (03/11 and 03/17)and 2 negative PCR COVID test (03/12 and 03/15). CXR at that time did show diffuse bilateral pneumonia, but that time patient was asymptomatic and no treatment for COVID-19 was initiated On presentation, found to have a positive COVID test 04/05/21 CXR 04/05 shows resolving pneumonia. Patient remains asymptomatic and stable on his home oxygen requirements At this time holding on COVID treatment. Not a candidate for dexamethasone and remdesivir Continuing isolation precautions. Will discuss with stationary engineer apprentice tomorrow to determine when this can be discontinued Patient did complete his vaccination and booster (5) Electrolyte abnormality: Code(s): E87.8 - Other disorders of electrolyte and fluid balance, not elsewhere classified Status: Acute Assessment and Plan: Hyponatremia: Sodium 132 today. Improved with IV fluids which have since been discontinued. Continue to monitor Hypokalemia: Potassium 3.0 today. Administer 40 mEq p.o. KCl Hypomagnesemia: Magnesium 1.6 today. Administer 2 g IV magnesium sulfate. Resume home magnesium oxide supplement 400 mg daily Monitor BMP and magnesium levels tomorrow (6) Chronic respiratory failure with hypoxia, on home O2 therapy: Code(s): J96.11 - Chronic respiratory failure with hypoxia; Z99.81 - Dependence on supplemental oxygen Status: Acute Assessment and Plan: At baseline on 3 L with activity and with rest and with O2 bleed in to CPAP at night Remaining stable on his baseline oxygen requirement. (7) Congestive heart failure: Qualifiers: Heart failure chronicity: unspecified Heart failure type: unspecified Qualified Code(s): I50.9 - Heart failure, unspecified Code(s): I50.9 - Heart failure, unspecified Status: Acute Assessment and Plan: Clinically compensated. IV fluids discontinued to avoid over-hydration. Monitor volume status. Resume furosemide tomorrow Continue metoprolol (8) Chronic obstructive pulmonary disease: Code(s): J44.9 - Chronic obstructive pulmonary disease, unspecified Status: Acute Assessment and Plan: No acute exacerbation. Continue inhalers and nebulizers. (9) Atrial fibrillation: Qualifiers: Atrial fibrillation type: unspecified Qualified Code(s): I48.91 - Unspecified atrial fibrillation Code(s): I48.91 - Unspecified atrial fibrillation Status: Acute Assessment and Plan: Rate controlled. Continue metoprolol Hold apixaban at this time given concerns for alonso
[2021-04-06] MEDS: CARBIDOPA/LEVODOPA 25/100 MG TABLET 2 TABLET PO ×3 (12:41→21:41)
[2021-04-06] MEDS: LEVOTHYROXINE SODIUM 75 MCG TABLET PO (12:41)
[2021-04-06] MEDS: POTASSIUM CHLORIDE 20 MEQ TABLET 40 MEQ PO (12:41)
[2021-04-06] MEDS: MAGNESIUM SULF 2 GM/WATER 50ML 2 GM/50 ML BAG IVPB (12:42)
[2021-04-06] MEDS: DOCUSATE SODIUM 100 MG CAPSULE PO (17:28)
[2021-04-06] MEDS: ERTAPENEM 1 GM/NS 50 ML 1 GM/50 ML BAG IVPB (17:28)
[2021-04-06] MEDS: METOPROLOL TARTRATE 12.5 MG TABLET PO (21:41)
[2021-04-06] MEDS: DONEPEZIL HCL 10 MG TABLET PO (21:41)
[2021-04-06] MEDS: PRAMIPEXOLE 0.125 MG TABLET PO (21:41)
[2021-04-07] VITALS (9 sets, daily range): BP systolic 99–114; BP diastolic 54–77; PULSE 64–86; RESP 16–20; TEMP 36.1–36.7; O2SAT 93–100
[2021-04-07] MEDS: CARBIDOPA/LEVODOPA 25/100 MG TABLET 2 TABLET PO ×4 (06:55→20:15)
[2021-04-07] MEDS: LEVOTHYROXINE SODIUM 75 MCG TABLET PO (06:55)
[2021-04-07 07:47] LABS: Anion Gap 7 mmol/L (8-16); Blood Urea Nitrogen 14 mg/dL (9-20); Carbon Dioxide 33 mmol/L (22-30); Chloride 91 mmol/L (98-107); Estimated CRCL calculation 51 ml/min; Estimated Glomerular Filt Rate > 60; Glucose 109 mg/dL (65-110); Potassium 3.4 mmol/L (3.4-5.0); Sodium 131 mmol/L (137-145)
[2021-04-07 08:08] LABS: Hematocrit 31.6 % (42.0-52.0); Hemoglobin 10.3 g/dL (14.0-18.0); Mean Corpuscular HGB Conc 32.6 g/dl (32-36); Mean Corpuscular Hemoglobin 33.1 pg (26-34); Mean Corpuscular Volume 101.6 fl (80-100); Mean Platelet Volume 10.1 fl (7.4-10.4); Platelet Count Result 167 k/mm3 (150-375); Red Blood Count 3.11 M/mm3 (4.6-6.20); Red Cell Distribution Width 14.7 % (11.5-14.5); White Blood Count 6.7 K/mm3 (4.5-10.0)
[2021-04-07] MEDS: BUDESONIDE RESPULE NEB 0.5 MG/2 ML AMP INHALATION (08:30)
[2021-04-07] MEDS: CYANOCOBALAMIN 1,000 MCG TABLET 1000 MCG PO (10:20)
[2021-04-07] MEDS: DOCUSATE SODIUM 100 MG CAPSULE PO ×2 (10:21→16:58)
[2021-04-07] MEDS: LORATADINE 10 MG TABLET PO (10:22)
[2021-04-07] MEDS: FUROSEMIDE 40 MG TABLET PO (10:22)
[2021-04-07] MEDS: METOPROLOL TARTRATE 12.5 MG TABLET PO ×2 (10:22→20:15)
[2021-04-07] MEDS: MAGNESIUM OXIDE 400 MG TABLET PO (10:22)
[2021-04-07] MEDS: metOLazone 5 MG TABLET PO (10:22)
[2021-04-07] MEDS: ATORVASTATIN 20 MG TABLET PO (10:22)
--- NOTE | 2021-04-07 11:04 | P.CDI_ITS ---
CDI Query Clarification Request -Covid 19 pneumonia has been documented - Recent admission with two positive rapid COVID test (03/11 and 03/17)and 2 negative PCR COVID test (03/12 and 03/15). CXR at that time did show diffuse bilateral pneumonia Please clarify current status of Covid 19: * Acute/current infection * Sequela/residual affect of Covid 19 * History of Covid 19 * Unable to determine
--- NOTE | 2021-04-07 15:08 | P.PNIM_ITS ---
Progress Note: A&P Assessment and Plan (1) Right ureteral stone: Code(s): N20.1 - Calculus of ureter Status: Acute Assessment and Plan: CT on presentation showed 7 mm stone at the distal right ureter causing mild hydroureteronephrosis * Appreciate urology consultation * Underwent cystoscopy with right retrograde pyelogram and right ureteral stent placement on 04/05/21 * Tolerated the procedure well. Pain is well controlled * Continue Nice catheter. Faint reddish urine noted today * Considering surgical stone management tomorrow per urology. (2) Hydroureteronephrosis: Code(s): N13.30 - Unspecified hydronephrosis Status: Acute Assessment and Plan: As detailed above. (3) Urinary tract infection: Code(s): N39.0 - Urinary tract infection, site not specified Status: Acute Assessment and Plan: UA grossly abnormal on presentation * Preliminary urine culture shows >100k E coli * Continue IV ertapenem awaiting culture results. Tailor antibiotics accordingly * He had recent ESBL UTI about 1 month ago for which he completed 10 days of cefepime * Blood cultures pending, negative to date * Patient is afebrile. No leukocytosis (4) Pneumonia due to COVID-19 virus: Code(s): U07.1 - COVID-19; J12.82 - Pneumonia due to coronavirus disease 2019 Status: Acute Assessment and Plan: Recent admission with two positive rapid COVID test (03/11 and 03/17)and 2 negative PCR COVID test (03/12 and 03/15). CXR at that time did show diffuse bilateral pneumonia, but that time patient was asymptomatic and no treatment for COVID-19 was initiated * On presentation, found to have a positive COVID PCR test 04/05/21. Suspect residual positive from 1 month prior * CXR 04/05 shows resolving pneumonia. Patient remains asymptomatic and stable on his home oxygen requirements * At this time holding on COVID treatment. Not a candidate for dexamethasone and remdesivir * Isolation precautions discontinued given onset COVID approximately 1 month ago. Discussed with surgical technologist * Patient did complete his vaccination and booster (5) Electrolyte abnormality: Code(s): E87.8 - Other disorders of electrolyte and fluid balance, not elsewhere classified Status: Acute Assessment and Plan: * Hyponatremia: Sodium 131 today. Improved with IV fluids * Hypokalemia: Potassium 3.4 today. Continue to monitor * Hypomagnesemia: Continue home magnesium oxide supplement 400 mg daily * Monitor BMP and magnesium levels (6) Chronic respiratory failure with hypoxia, on home O2 therapy: Code(s): J96.11 - Chronic respiratory failure with hypoxia; Z99.81 - Dependence on supplemental oxygen Status: Acute Assessment and Plan: At baseline on 3 L with activity and with rest and with O2 bleed in to CPAP at night * Remaining stable on his baseline oxygen requirement. (7) Congestive heart failure: Qualifiers: Heart failure type: unspecified Heart failure chronicity: unspecified Qualified Code(s): I50.9 - Heart failure, unspecified Code(s): I50.9 - Heart failure, unspecified Status: Acute Assessment and Plan: Clinically compensated. * Monitor volume status. * Continue home furosemide * Continue metoprolol (8) Chronic obstructive pulmonary disease: Code(s): J44.9 - Chronic obstructive pulmonary disease, unspecified Status: Acute Assessment and Plan: No acute exacerbation. * Continue inhalers and neb
--- NOTE | 2021-04-07 15:08 | PM.IMPN ---
Progress Note: A&P Assessment and Plan (1) Right ureteral stone: Code(s): N20.1 - Calculus of ureter Status: Acute Assessment and Plan: CT on presentation showed 7 mm stone at the distal right ureter causing mild hydroureteronephrosis Appreciate urology consultation Underwent cystoscopy with right retrograde pyelogram and right ureteral stent placement on 04/05/21 Tolerated the procedure well. Pain is well controlled Continue Nice catheter. Faint reddish urine noted today Considering surgical stone management tomorrow per urology. (2) Hydroureteronephrosis: Code(s): N13.30 - Unspecified hydronephrosis Status: Acute Assessment and Plan: As detailed above. (3) Urinary tract infection: Code(s): N39.0 - Urinary tract infection, site not specified Status: Acute Assessment and Plan: UA grossly abnormal on presentation Preliminary urine culture shows >100k E coli Continue IV ertapenem awaiting culture results. Tailor antibiotics accordingly He had recent ESBL UTI about 1 month ago for which he completed 10 days of cefepime Blood cultures pending, negative to date Patient is afebrile. No leukocytosis (4) Pneumonia due to COVID-19 virus: Code(s): U07.1 - COVID-19; J12.82 - Pneumonia due to coronavirus disease 2019 Status: Acute Assessment and Plan: Recent admission with two positive rapid COVID test (03/11 and 03/17)and 2 negative PCR COVID test (03/12 and 03/15). CXR at that time did show diffuse bilateral pneumonia, but that time patient was asymptomatic and no treatment for COVID-19 was initiated On presentation, found to have a positive COVID PCR test 04/05/21. Suspect residual positive from 1 month prior CXR 04/05 shows resolving pneumonia. Patient remains asymptomatic and stable on his home oxygen requirements At this time holding on COVID treatment. Not a candidate for dexamethasone and remdesivir Isolation precautions discontinued given onset COVID approximately 1 month ago. Discussed with radio/tv technician Patient did complete his vaccination and booster (5) Electrolyte abnormality: Code(s): E87.8 - Other disorders of electrolyte and fluid balance, not elsewhere classified Status: Acute Assessment and Plan: Hyponatremia: Sodium 131 today. Improved with IV fluids Hypokalemia: Potassium 3.4 today. Continue to monitor Hypomagnesemia: Continue home magnesium oxide supplement 400 mg daily Monitor BMP and magnesium levels (6) Chronic respiratory failure with hypoxia, on home O2 therapy: Code(s): J96.11 - Chronic respiratory failure with hypoxia; Z99.81 - Dependence on supplemental oxygen Status: Acute Assessment and Plan: At baseline on 3 L with activity and with rest and with O2 bleed in to CPAP at night Remaining stable on his baseline oxygen requirement. (7) Congestive heart failure: Qualifiers: Heart failure type: unspecified Heart failure chronicity: unspecified Qualified Code(s): I50.9 - Heart failure, unspecified Code(s): I50.9 - Heart failure, unspecified Status: Acute Assessment and Plan: Clinically compensated. Monitor volume status. Continue home furosemide Continue metoprolol (8) Chronic obstructive pulmonary disease: Code(s): J44.9 - Chronic obstructive pulmonary disease, unspecified Status: Acute Assessment and Plan: No acute exacerbation. Continue inhalers and nebulizers. (9) Atrial fibrillation: Qualifiers: Atrial fibrillation type: unspecified Qualified Code(s): I48.91 - Unspecified atrial fibrillation Code(s): I48.91 - Unspecified atrial fibrillation Status: Acute Assessment and Plan: Rate controlled. Continue metoprolol Hold apixaban at this time given concerns for hematuria and possible surgical procedure tomorrow. Resume when cleared by urology
--- NOTE | 2021-04-07 15:32 | WPDUROPN2 ---
Progress Note: A&P Assessment and Plan (1) Urinary tract infection: Code(s): N39.0 - Urinary tract infection, site not specified Status: Acute Assessment and Plan: Culture growing E-Coli, continue Ertapenem, tailor antibiotics to sensitivity report. Patient will require f/u in the office in a week to re-check his urine to ensure his repeat urine culture is negative before proceeding with a Cystoscopy, right ureteroscopy with stone extraction, right stent exchange, right retrograde pyelogram, possible holmium laser. (2) Right ureteral stone: Code(s): N20.1 - Calculus of ureter Status: Acute Assessment and Plan: Will plan to do definitive stone management as an outpatient once infection has resolved. The patient and his have been notified of the plan. Subjective Subjective Date/Time Seen: 04/07/21 15:32 POD #2 Cystoscopy, right stent placement, retrograde pyelogram. Patient doing well, although his urine culture came back positive growing E-Coli. He remains on Ertapenem, WBC is stable and he is afebrile. Review of Systems Cardiovascular: Cardiovascular: Denies chest pain Respiratory: Respiratory: Reports no additional respiratory complaints Gastrointestinal: Gastrointestinal: Denies abdominal pain, Denies nausea and Denies vomiting Genitourinary: Genitourinary: Denies hematuria, Reports dysuria, Denies flank pain, Denies urinary frequency and Denies urinary hesitancy Exam Resp: Effort & Inspection: normal respiratory effort Cardio: Rate: regular rate GI: GI Palp: Yes Soft to palpation and No Tenderness to palpation present (GI) : General: Yes no CVA tenderness Extrem: General: no edema Objective Data Vital Signs Vital Signs: Vital Signs - 24 hr 04/06/21 16:00 04/06/21 20:00 04/07/21 00:00 Temperature 96.9 F L 97.1 F L 97.2 F L Pulse Rate 66 76 75 Respiratory Rate 18 18 18 Blood Pressure 131/61 112/63 114/60 Pulse Oximetry 99 96 93 04/07/21 04:00 04/07/21 08:00 04/07/21 08:30 Temperature 97.6 F 97 F L Pulse Rate 64 77 80 Respiratory Rate 20 18 16 Blood Pressure 99/77 L 100/54 L Pulse Oximetry 95 93 04/07/21 08:39 04/07/21 10:22 04/07/21 14:22 Temperature 98 F Pulse Rate 83 83 86 Respiratory Rate 18 18 Blood Pressure 104/58 L Pulse Oximetry 94 95 Intake/Output Intake/Output: Intake & Output 04/04/21 04/05/21 04/06/21 04/07/21 23:59 23:59 23:59 23:59 Intake Total 1150 876 580 Output Total 680 1400 450 Balance 470 -524 130 Meds/Results Medications: Active Medications Generic Name Dose Route Start Last Admin Trade Name Freq PRN Reason Stop Dose Admin Albuterol 2 puff 04/06/21 11:48 Albuterol Sulfate (*Sp) Aerosol 1 Puff INHALATION QIDRT PRN Shortness Of Breath Atorvastatin Calcium 20 mg 04/07/21 09:00 04/07/21 10:22 Atorvastatin 20 Mg Tablet PO 20 mg QAM MERCEDES Administration Budesonide 0.5 mg 04/07/21 08:00 04/07/21 08:30 Budesonide Respule Neb 0.5 Mg/2 Ml Amp INHALATION 0.5 mg DAILYRT MERCEDES Administration Carbidopa/Levodopa 2 tablet 04/06/21 12:00 04/07/21 15:27 Carbidopa/Levodopa 25/100 Mg Tablet PO 2 tablet QID@0700,1200,1600,2000 MERCEDES Administration Cyanocobalamin 1,000 mcg 04/07/21 09:00 04/07/21 10:20 Cyanocobalamin 1,000 Mcg Tablet PO 05/07/21 08:59 1,000 mcg DAILY MERCEDES Administration Docusate Sodium 100 mg 04/06/21 17:00 04/07/21 10:21 Docusate Sodium 100 Mg Capsule PO 100 mg BID MERCEDES Administration Donepezil HCl 10 mg 04/06/21 21:00 04/06/21 21:41 Donepezil Hcl 10 Mg Tablet PO 10 mg HS MERCEDES Administration Furosemide 40 mg 04/07/21 09:00 04/07/21 10:22 Furosemide 40 Mg Tablet PO 40 mg DAILY MERCEDES Administration Ertapenem 1 gm in 50 mls @ 100 mls/hr 04/06/21 18:00 04/06/21 17:58 Invanz 1 Gm/Ns 50 Ml IVPB Infused Q24H MERCEDES Infusion Levothyroxine Sodium 75 mcg 04/06/21 12:10 04/07/21 06:55 Levothyroxine So
[2021-04-07] MEDS: ERTAPENEM 1 GM/NS 50 ML 1 GM/50 ML BAG IVPB (17:00)
[2021-04-07] MEDS: PRAMIPEXOLE 0.125 MG TABLET PO (20:15)
[2021-04-07] MEDS: DONEPEZIL HCL 10 MG TABLET PO (20:15)
[2021-04-08 05:20] VITALS: BP 123/93; PULSE 84; RESP 20; TEMP 36.4; O2SAT 96
[2021-04-08] MEDS: LEVOTHYROXINE SODIUM 75 MCG TABLET PO (05:49)
[2021-04-08] MEDS: CARBIDOPA/LEVODOPA 25/100 MG TABLET 2 TABLET PO ×4 (05:50→20:33)
[2021-04-08 07:56] LABS: Anion Gap 6 mmol/L (8-16); Blood Urea Nitrogen 15 mg/dL (9-20); Calcium 9.1 mg/dL (8.4-10.2); Carbon Dioxide 37 mmol/L (22-30); Chloride 89 mmol/L (98-107); Estimated CRCL calculation 49 ml/min; Estimated Glomerular Filt Rate > 60; Glucose 103 mg/dL (65-110); Magnesium 1.7 mg/dL (1.6-2.3); Potassium 3.2 mmol/L (3.4-5.0); Sodium 132 mmol/L (137-145)
[2021-04-08] MEDS: LORATADINE 10 MG TABLET PO (08:38)
[2021-04-08] MEDS: FUROSEMIDE 40 MG TABLET PO (08:38)
[2021-04-08] MEDS: DOCUSATE SODIUM 100 MG CAPSULE PO ×2 (08:38→17:06)
[2021-04-08] MEDS: MAGNESIUM OXIDE 400 MG TABLET PO (08:38)
[2021-04-08] MEDS: ATORVASTATIN 20 MG TABLET PO (08:39)
[2021-04-08] MEDS: CYANOCOBALAMIN 1,000 MCG TABLET 1000 MCG PO (08:39)
[2021-04-08] MEDS: BUDESONIDE RESPULE NEB 0.5 MG/2 ML AMP INHALATION (08:50)
[2021-04-08 08:51] VITALS: PULSE 78; RESP 22; O2SAT 96
[2021-04-08 09:10] VITALS: PULSE 83; RESP 20
[2021-04-08 13:48] VITALS: BP 106/54; PULSE 70; RESP 20; TEMP 36; O2SAT 92
--- NOTE | 2021-04-08 14:42 | PM.IMPN ---
Progress Note: A&P Assessment and Plan (1) Right ureteral stone: Code(s): N20.1 - Calculus of ureter Status: Acute Assessment and Plan: CT on presentation showed 7 mm stone at the distal right ureter causing mild hydroureteronephrosis Appreciate urology consultation Underwent cystoscopy with right retrograde pyelogram and right ureteral stent placement on 04/05/21 Tolerated the procedure well. Pain is well controlled Continue Nice catheter. Faint reddish urine noted today Urology was considering surgical stone management, however due to current UTI this will be delayed until completion of abx course. He will follow up in the office in 1 week for repeat UA and to schedule procedure. (2) Hydroureteronephrosis: Code(s): N13.30 - Unspecified hydronephrosis Status: Acute Assessment and Plan: As detailed above. (3) Urinary tract infection: Code(s): N39.0 - Urinary tract infection, site not specified Status: Acute Assessment and Plan: UA grossly abnormal on presentation Preliminary urine culture shows >100k E coli, sensitive to Ertapenem Continue IV ertapenem, on discharge will switch to Augmentin Blood cultures pending, negative to date Patient is afebrile. No leukocytosis (4) Pneumonia due to COVID-19 virus: Code(s): U07.1 - COVID-19; J12.82 - Pneumonia due to coronavirus disease 2019 Status: Acute Assessment and Plan: Recent admission with two positive rapid COVID test (03/11 and 03/17)and 2 negative PCR COVID test (03/12 and 03/15). CXR at that time did show diffuse bilateral pneumonia, but that time patient was asymptomatic and no treatment for COVID-19 was initiated On presentation, found to have a positive COVID PCR test 04/05/21. Suspect residual positive from 1 month prior CXR 04/05 shows resolving pneumonia. Patient remains asymptomatic and stable on his home oxygen requirements At this time holding on COVID treatment. Not a candidate for dexamethasone and remdesivir Isolation precautions discontinued given onset COVID approximately 1 month ago. Discussed with banking paralegal Patient did complete his vaccination and booster While it is felt the pneumonia is likely viral secondary to COVID, reports recurrent pneumonia prior to this. Will order swallow study to assess for aspiration. (5) Electrolyte abnormality: Code(s): E87.8 - Other disorders of electrolyte and fluid balance, not elsewhere classified Status: Acute Assessment and Plan: Hyponatremia: Sodium 132 today. Improved with IV fluids Hypokalemia: Potassium 3.2 today. Per , pt is supposed to be on 10 mg PO KCL daily which it does not look like he was receiving here. This has been restarted. Hypomagnesemia: Continue home magnesium oxide supplement 400 mg daily Monitor BMP and magnesium levels (6) Chronic respiratory failure with hypoxia, on home O2 therapy: Code(s): J96.11 - Chronic respiratory failure with hypoxia; Z99.81 - Dependence on supplemental oxygen Status: Acute Assessment and Plan: At baseline on 3 L with activity and with rest and with O2 bleed in to CPAP at night Remaining stable on his baseline oxygen requirement. (7) Congestive heart failure: Qualifiers: Heart failure chronicity: unspecified Heart failure type: unspecified Qualified Code(s): I50.9 - Heart failure, unspecified Code(s): I50.9 - Heart failure, unspecified Status: Acute Assessment and Plan: Clinically compensated. Monitor volume status. Continue home furosemide Continue metoprolol (8) Chronic obstructive pulmonary disease: Code(s): J44.9 - Chronic obstructive pulmonary disease, unspecified Status: Acute Assessment and Plan: No acute exacerbation. Continue inhalers and nebulizers. (9) Atrial fibrillation: Qualifiers: Atrial fibrillation type:
--- NOTE | 2021-04-08 16:24 | PCSTNOTE ---
Patient's Speech Therapy evaluation will be completed in the morning 04/09/21.
[2021-04-08] MEDS: POTASSIUM CHLORIDE 10 MEQ TABLET.ER PO (17:06)
[2021-04-08] MEDS: ERTAPENEM 1 GM/NS 50 ML 1 GM/50 ML BAG IVPB (17:06)
[2021-04-08 20:00] VITALS: BP 127/60; PULSE 71; RESP 20; TEMP 36.6; O2SAT 96
[2021-04-08] MEDS: APIXABAN 5 MG TABLET PO (20:33)
[2021-04-08] MEDS: PRAMIPEXOLE 0.125 MG TABLET PO (20:33)
[2021-04-08 20:34] VITALS: PULSE 70
[2021-04-08] MEDS: DONEPEZIL HCL 10 MG TABLET PO (20:34)
[2021-04-08] MEDS: METOPROLOL TARTRATE 12.5 MG TABLET PO (20:34)
[2021-04-09] VITALS (17 sets, daily range): BP systolic 100–117; BP diastolic 55–69; PULSE 67–82; RESP 16–22; TEMP 36.5–36.9; O2SAT 93–100
--- NOTE | 2021-04-09 04:30 | PC.NURSE ---
sats found to be 75% on 3LNC, o2 increased to 5LNC, sats show 85%, heart rate is ranging from 40-70's, Leon ALDRIDGE called and new orders for stat chest xray, breathing treatment, and lasix.
[2021-04-09] MEDS: IPRATROPIUM BR 0.02% INH SOLN 0.5 MG/2.5 ML VIAL INHALATION ×3 (05:48→20:19)
[2021-04-09] MEDS: ALBUTEROL SULFATE NEB 2.5 MG/0.5 ML INH INHALATION ×3 (05:48→20:19)
[2021-04-09] MEDS: FUROSEMIDE INJ 40 MG/4 ML VIAL IV PUSH ×2 (06:01→08:40)
[2021-04-09] MEDS: CARBIDOPA/LEVODOPA 25/100 MG TABLET 2 TABLET PO ×4 (06:02→21:25)
[2021-04-09] MEDS: LEVOTHYROXINE SODIUM 75 MCG TABLET PO (06:02)
[2021-04-09 07:25] LABS: Basophils Percent Auto 0.4 % (0.2-1.2); Eosinophils Absolute Auto 0.2 K/mm3 (0-0.3); Eosinophils Percent Auto 2.6 % (0-4.4); Hematocrit 34.3 % (42.0-52.0); Hemoglobin 11.4 g/dL (14.0-18.0); Immature Granulocyte Absolute 0.09 K/mm3 (0.00-0.031); Immature Granulocyte Percent A 1.1 % (0-0.5); Lymphocytes Absolute Auto 2.12 K/mm3 (0.9-3.2); Lymphocytes Percent Auto 26.4 % (18.3-44.2); Mean Corpuscular HGB Conc 33.2 g/dl (32-36); Mean Corpuscular Hemoglobin 32.6 pg (26-34); Mean Platelet Volume 9.7 fl (7.4-10.4); Monocytes Absolute Auto 0.9 K/mm3 (0.1-0.6); Monocytes Percent Auto 11.7 % (2.6-8.5); Neutrophils Absolute Auto 4.6 K/mm3 (1.3-6.7); Neutrophils Percent Auto 57.8 % (45.5-73.1); Platelet Count Result 204 k/mm3 (150-375); Red Cell Distribution Width 14.2 % (11.5-14.5)
[2021-04-09 07:37] LABS: Alanine Aminotransferase 9 U/L (4-50); Albumin Level 3.9 g/dL (3.5-5.1); Alkaline Phosphatase 98 U/L (38-126); Anion Gap 8 mmol/L (8-16); Aspartate Amino Transferase 32 U/L (17-59); Bilirubin,Total 0.6 mg/dL (0.2-1.3); Blood Urea Nitrogen 17 mg/dL (9-20); Calcium 9.5 mg/dL (8.4-10.2); Carbon Dioxide 36 mmol/L (22-30); Chloride 88 mmol/L (98-107); Estimated CRCL calculation 44 ml/min; Estimated Glomerular Filt Rate > 60; Glucose 95 mg/dL (65-110); Potassium 3.2 mmol/L (3.4-5.0); Sodium 132 mmol/L (137-145)
--- NOTE | 2021-04-09 07:49 | P.PNIM_ITS ---
Progress Note: A&P Assessment and Plan (1) Right ureteral stone: Code(s): N20.1 - Calculus of ureter Status: Acute Assessment and Plan: CT on presentation showed 7 mm stone at the distal right ureter causing mild hydroureteronephrosis * Appreciate urology consultation * Underwent cystoscopy with right retrograde pyelogram and right ureteral stent placement on 04/05/21 * Tolerated the procedure well. Pain is well controlled * Continue Nice catheter. Faint pink/reddish urine noted today * Urology was considering surgical stone management, however due to current UTI this will be delayed until completion of abx course. He will follow up in the office in 1 week for repeat UA and to schedule procedure. (2) Hydroureteronephrosis: Code(s): N13.30 - Unspecified hydronephrosis Status: Acute Assessment and Plan: As detailed above. (3) Urinary tract infection: Code(s): N39.0 - Urinary tract infection, site not specified Status: Acute Assessment and Plan: UA grossly abnormal on presentation * Preliminary urine culture shows >100k E coli, sensitive to Ertapenem * Continue IV ertapenem, plan to switch to Augmentin on discharge * Blood cultures pending, negative to date * Patient is afebrile. No leukocytosis (4) Pneumonia due to COVID-19 virus: Code(s): U07.1 - COVID-19; J12.82 - Pneumonia due to coronavirus disease 2019 Status: Acute Assessment and Plan: Recent admission with two positive rapid COVID test (03/11 and 03/17)and 2 negative PCR COVID test (03/12 and 03/15). CXR at that time did show diffuse bilateral pneumonia, but that time patient was asymptomatic and no treatment for COVID-19 was initiated * On presentation, found to have a positive COVID PCR test 04/05/21. Suspect residual positive from 1 month prior * CXR 04/05 shows resolving pneumonia. Patient remains asymptomatic and stable on his home oxygen requirements * At this time holding on COVID treatment. Not a candidate for dexamethasone and remdesivir as he is at his baseline * Patient did complete his vaccination and booster * While it is felt the pneumonia is likely viral secondary to COVID, reports recurrent pneumonia prior to this. Swallow study to evaluate for aspiration is pending. (5) Electrolyte abnormality: Code(s): E87.8 - Other disorders of electrolyte and fluid balance, not elsewhere classif ied Status: Acute Assessment and Plan: * Hyponatremia: Sodium 132 today. Improved with IV fluids * Hypokalemia: Potassium 3.2 today. Continue home potassium supplement 10 mEq p.o. daily. Add additional 20 mEq p.o. * Hypomagnesemia: Continue home magnesium oxide supplement 400 mg daily * Monitor BMP and magnesium levels (6) Chronic respiratory failure with hypoxia, on home O2 therapy: Code(s): J96.11 - Chronic respiratory failure with hypoxia; Z99.81 - Dependence on supplemental oxygen Status: Acute Assessment and Plan: At baseline on 3 L with activity and with rest and with O2 bleed in to CPAP at night * Remaining stable on his baseline oxygen requirement. (7) Congestive heart failure: Qualifiers: Heart failure type: unspecified Heart failure chronicity: unspecified Qualified Code(s): I50.9 - Heart failure, unspecified Code(s): I50.9 - Heart failure, unspecified Status: Acute Assessment and Plan: Clinically compensated. * Monitor volume status. * Continue metoprolol * CXR repeated this morning due to low spO2 reading (resolved
--- NOTE | 2021-04-09 07:49 | PM.IMPN ---
Progress Note: A&P Assessment and Plan (1) Right ureteral stone: Code(s): N20.1 - Calculus of ureter Status: Acute Assessment and Plan: CT on presentation showed 7 mm stone at the distal right ureter causing mild hydroureteronephrosis Appreciate urology consultation Underwent cystoscopy with right retrograde pyelogram and right ureteral stent placement on 04/05/21 Tolerated the procedure well. Pain is well controlled Continue Nice catheter. Faint pink/reddish urine noted today Urology was considering surgical stone management, however due to current UTI this will be delayed until completion of abx course. He will follow up in the office in 1 week for repeat UA and to schedule procedure. (2) Hydroureteronephrosis: Code(s): N13.30 - Unspecified hydronephrosis Status: Acute Assessment and Plan: As detailed above. (3) Urinary tract infection: Code(s): N39.0 - Urinary tract infection, site not specified Status: Acute Assessment and Plan: UA grossly abnormal on presentation Preliminary urine culture shows >100k E coli, sensitive to Ertapenem Continue IV ertapenem, plan to switch to Augmentin on discharge Blood cultures pending, negative to date Patient is afebrile. No leukocytosis (4) Pneumonia due to COVID-19 virus: Code(s): U07.1 - COVID-19; J12.82 - Pneumonia due to coronavirus disease 2019 Status: Acute Assessment and Plan: Recent admission with two positive rapid COVID test (03/11 and 03/17)and 2 negative PCR COVID test (03/12 and 03/15). CXR at that time did show diffuse bilateral pneumonia, but that time patient was asymptomatic and no treatment for COVID-19 was initiated On presentation, found to have a positive COVID PCR test 04/05/21. Suspect residual positive from 1 month prior CXR 04/05 shows resolving pneumonia. Patient remains asymptomatic and stable on his home oxygen requirements At this time holding on COVID treatment. Not a candidate for dexamethasone and remdesivir as he is at his baseline Patient did complete his vaccination and booster While it is felt the pneumonia is likely viral secondary to COVID, reports recurrent pneumonia prior to this. Swallow study to evaluate for aspiration is pending. (5) Electrolyte abnormality: Code(s): E87.8 - Other disorders of electrolyte and fluid balance, not elsewhere classified Status: Acute Assessment and Plan: Hyponatremia: Sodium 132 today. Improved with IV fluids Hypokalemia: Potassium 3.2 today. Continue home potassium supplement 10 mEq p.o. daily. Add additional 20 mEq p.o. Hypomagnesemia: Continue home magnesium oxide supplement 400 mg daily Monitor BMP and magnesium levels (6) Chronic respiratory failure with hypoxia, on home O2 therapy: Code(s): J96.11 - Chronic respiratory failure with hypoxia; Z99.81 - Dependence on supplemental oxygen Status: Acute Assessment and Plan: At baseline on 3 L with activity and with rest and with O2 bleed in to CPAP at night Remaining stable on his baseline oxygen requirement. (7) Congestive heart failure: Qualifiers: Heart failure type: unspecified Heart failure chronicity: unspecified Qualified Code(s): I50.9 - Heart failure, unspecified Code(s): I50.9 - Heart failure, unspecified Status: Acute Assessment and Plan: Clinically compensated. Monitor volume status. Continue metoprolol CXR repeated this morning due to low spO2 reading (resolved-see subjective). CXR showed unchanged ill-defined airspace disease medical claims representative of pneumonia vs edema. He does sound wet. Will administer 40 mg IV Lasix and assess for improvement. Hold PO Lasix. Monitor intake and output to evaluate response to Lasix. Will also add Cornet to help mobilize secretions. (8) Chronic obstructive pulmonary disease: Code(s): J44.9 - Chronic obstructive pulmon
[2021-04-09] MEDS: CYANOCOBALAMIN 1,000 MCG TABLET 1000 MCG PO (08:41)
[2021-04-09] MEDS: METOPROLOL TARTRATE 12.5 MG TABLET PO ×2 (08:41→21:26)
[2021-04-09] MEDS: metOLazone 5 MG TABLET PO (08:42)
[2021-04-09] MEDS: ATORVASTATIN 20 MG TABLET PO (08:42)
[2021-04-09] MEDS: LORATADINE 10 MG TABLET PO (08:42)
[2021-04-09] MEDS: POTASSIUM CHLORIDE 20 MEQ TABLET PO (08:42)
[2021-04-09] MEDS: APIXABAN 5 MG TABLET PO ×2 (08:42→21:26)
[2021-04-09] MEDS: POTASSIUM CHLORIDE 10 MEQ TABLET.ER PO (08:42)
[2021-04-09] MEDS: DOCUSATE SODIUM 100 MG CAPSULE PO ×2 (08:42→16:54)
[2021-04-09] MEDS: guaiFENesin 12 HR 600 MG TABCR PO ×2 (08:43→21:27)
[2021-04-09] MEDS: MAGNESIUM OXIDE 400 MG TABLET PO (08:43)
[2021-04-09] MEDS: BUDESONIDE RESPULE NEB 0.5 MG/2 ML AMP INHALATION (09:30)
[2021-04-09] MEDS: DORNASE ALFA INH SOLN 1 MG/ML 2.5 ML AMP 2.5 MG INHALATION ×2 (09:30→20:19)
--- NOTE | 2021-04-09 09:46 | PCSTNOTE ---
Please refer to the Bedside Swallow Evaluation in the EMR. Please note, silent aspiration cannot be ruled out at bedside.
[2021-04-09] MEDS: FUROSEMIDE 40 MG TABLET PO (16:54)
[2021-04-09] MEDS: ERTAPENEM 1 GM/NS 50 ML 1 GM/50 ML BAG IVPB (16:59)
[2021-04-09] MEDS: DONEPEZIL HCL 10 MG TABLET PO (21:26)
[2021-04-09] MEDS: PRAMIPEXOLE 0.125 MG TABLET PO (21:26)
[2021-04-10] VITALS (8 sets, daily range): BP systolic 112–116; BP diastolic 77–94; PULSE 63–113; RESP 18–20; TEMP 36.3–36.9; O2SAT 90–91
[2021-04-10] MEDS: ALBUTEROL SULFATE NEB 2.5 MG/0.5 ML INH INHALATION ×3 (02:15→14:33)
[2021-04-10] MEDS: IPRATROPIUM BR 0.02% INH SOLN 0.5 MG/2.5 ML VIAL INHALATION ×3 (02:15→14:33)
[2021-04-10 05:38] LABS: Osmolality, Urine 378 mOsm/kg (50-1200)
[2021-04-10] MEDS: LEVOTHYROXINE SODIUM 75 MCG TABLET PO (06:12)
[2021-04-10] MEDS: CARBIDOPA/LEVODOPA 25/100 MG TABLET 2 TABLET PO ×3 (06:13→15:32)
[2021-04-10] MEDS: ATORVASTATIN 20 MG TABLET PO (08:08)
[2021-04-10] MEDS: POTASSIUM CHLORIDE 10 MEQ TABLET.ER PO (08:08)
[2021-04-10] MEDS: METOPROLOL TARTRATE 12.5 MG TABLET PO (08:08)
[2021-04-10] MEDS: FUROSEMIDE 40 MG TABLET PO ×2 (08:10→12:30)
[2021-04-10] MEDS: LORATADINE 10 MG TABLET PO (08:10)
[2021-04-10] MEDS: guaiFENesin 12 HR 600 MG TABCR PO (08:10)
[2021-04-10] MEDS: APIXABAN 5 MG TABLET PO (08:10)
[2021-04-10] MEDS: CYANOCOBALAMIN 1,000 MCG TABLET 1000 MCG PO (08:10)
[2021-04-10] MEDS: MAGNESIUM OXIDE 400 MG TABLET PO (08:10)
[2021-04-10] MEDS: PANTOPRAZOLE 40 MG TABLET PO (08:10)
[2021-04-10] MEDS: DOCUSATE SODIUM 100 MG CAPSULE PO (08:11)
[2021-04-10] MEDS: BUDESONIDE RESPULE NEB 0.5 MG/2 ML AMP INHALATION (09:34)
[2021-04-10] MEDS: DORNASE ALFA INH SOLN 1 MG/ML 2.5 ML AMP 2.5 MG INHALATION (09:34)
[2021-04-10 09:50] LABS: Hematocrit 35.9 % (42.0-52.0); Hemoglobin 11.8 g/dL (14.0-18.0)
[2021-04-10 10:17] LABS: Anion Gap 12 mmol/L (8-16); Blood Urea Nitrogen 22 mg/dL (9-20); Calcium 9.4 mg/dL (8.4-10.2); Carbon Dioxide 33 mmol/L (22-30); Chloride 89 mmol/L (98-107); Estimated CRCL calculation 37 ml/min; Estimated Glomerular Filt Rate 57; Glucose 116 mg/dL (65-110); Magnesium 1.9 mg/dL (1.6-2.3); Potassium 3.3 mmol/L (3.4-5.0); Sodium 134 mmol/L (137-145)
[2021-04-10] MEDS: POTASSIUM CHLORIDE 20 MEQ TABLET PO (12:30)
[2021-04-10] MEDS: LIDOCAINE HCL 1% LOCAL INJ 2 ML AMPUL 5 ML INFILTRATE (15:00)
--- NOTE | 2021-04-10 15:03 | P.DS_ITS ---
DS: Admitting Diagnosis Discharge Date 04/10/2021 Admitting Diagnosis Ureteral stone DS: Discharge Diagnosis Discharge Diagnosis (1) Right ureteral stone: Code(s): N20.1 - Calculus of ureter Status: Acute Assessment and Plan: CT on presentation showed 7 mm stone at the distal right ureter causing mild hydroureteronephrosis * He was seen in consultation by Urology * Underwent cystoscopy with right retrograde pyelogram and right ureteral stent placement on 04/05/21 * Tolerated the procedure well. Pain was well controlled * Urology was considering surgical stone management a during hospitalization, however due to current UTI this will be delayed until completion of abx course. He will follow up in the office in 1 week for repeat UA and to schedule procedure. * Nice catheter initiated following stent placement was discontinued patient was able to void (2) Hydroureteronephrosis: Code(s): N13.30 - Unspecified hydronephrosis Status: Acute Assessment and Plan: As detailed above. (3) Urinary tract infection: Code(s): N39.0 - Urinary tract infection, site not specified Status: Acute Assessment and Plan: UA grossly abnormal on presentation * Preliminary urine culture showed >100k E coli * Received IV ertapenem based on susceptibility report * Will continue ertapenem at [facility] to complete 10 days of antibiotic therapy * Midline catheter placed by vascular admissions representative on 04/10/2021 * Previously noted plans to discharge with Augmentin, however upon reviewing data and discussion was supervising physician, determined best plan of care to continue IV ertapenem * Blood cultures negative to date. Will monitor final cultures (4) Pneumonia due to COVID-19 virus: Code(s): U07.1 - COVID-19; J12.82 - Pneumonia due to coronavirus disease 2019 Status: Acute Assessment and Plan: Recent admission with two positive rapid COVID test (03/11 and 03/17)and 2 negative PCR COVID test (03/12 and 03/15). CXR at that time did show diffuse bilateral pneumonia, but that time patient was asymptomatic and no treatment for COVID-19 was initiated * On presentation, found to have a positive COVID PCR test 04/05/21. Suspect residual positive from 1 month prior * CXR 04/05 shows resolving pneumonia. Patient remained asymptomatic and stable on his home oxygen requirements * Not a candidate for dexamethasone and remdesivir as he is at his baseline * Patient did complete his vaccination and booster (5) Electrolyte abnormality: Code(s): E87.8 - Other disorders of electrolyte and fluid balance, not elsewhere classified Status: Acute Assessment and Plan: * Hyponatremia: Sodium levels improved * Hypokalemia: Potassium slightly decreased, likely due to IV diuretic. Patient is on home potassium supplement 10 mEq p.o. daily. Potassium 3.3 at time of discharge and received 30 total mEq p.o. KCl supplementation. Expect levels to normalize with regular diet and resuming home medications. * Hypomagnesemia: Improved. Continue home magnesium oxide supplement 400 mg daily (6) Chronic respiratory failure with hypoxia, on home O2 therapy: Code(s): J96.11 - Chronic respiratory failure with hypoxia; Z99.81 - Dependence on supplemental oxygen Status: Acute Assessment and Plan: At baseline on 3 L with activity and with rest and with O2 bleed in to CPAP at night * Remained stable on his baseline oxygen requirement. (7) Congestive heart failure: Qu
--- NOTE | 2021-04-10 15:03 | PM.DS ---
DS: Admitting Diagnosis Discharge Date 04/10/2021 Admitting Diagnosis Ureteral stone DS: Discharge Diagnosis Discharge Diagnosis (1) Right ureteral stone: Code(s): N20.1 - Calculus of ureter Status: Acute Assessment and Plan: CT on presentation showed 7 mm stone at the distal right ureter causing mild hydroureteronephrosis He was seen in consultation by Urology Underwent cystoscopy with right retrograde pyelogram and right ureteral stent placement on 04/05/21 Tolerated the procedure well. Pain was well controlled Urology was considering surgical stone management a during hospitalization, however due to current UTI this will be delayed until completion of abx course. He will follow up in the office in 1 week for repeat UA and to schedule procedure. Nice catheter initiated following stent placement was discontinued patient was able to void (2) Hydroureteronephrosis: Code(s): N13.30 - Unspecified hydronephrosis Status: Acute Assessment and Plan: As detailed above. (3) Urinary tract infection: Code(s): N39.0 - Urinary tract infection, site not specified Status: Acute Assessment and Plan: UA grossly abnormal on presentation Preliminary urine culture showed >100k E coli Received IV ertapenem based on susceptibility report Will continue ertapenem at [facility] to complete 10 days of antibiotic therapy Midline catheter placed by vascular access consultant on 04/10/2021 Previously noted plans to discharge with Augmentin, however upon reviewing data and discussion was supervising physician, determined best plan of care to continue IV ertapenem Blood cultures negative to date. Will monitor final cultures (4) Pneumonia due to COVID-19 virus: Code(s): U07.1 - COVID-19; J12.82 - Pneumonia due to coronavirus disease 2019 Status: Acute Assessment and Plan: Recent admission with two positive rapid COVID test (03/11 and 03/17)and 2 negative PCR COVID test (03/12 and 03/15). CXR at that time did show diffuse bilateral pneumonia, but that time patient was asymptomatic and no treatment for COVID-19 was initiated On presentation, found to have a positive COVID PCR test 04/05/21. Suspect residual positive from 1 month prior CXR 04/05 shows resolving pneumonia. Patient remained asymptomatic and stable on his home oxygen requirements Not a candidate for dexamethasone and remdesivir as he is at his baseline Patient did complete his vaccination and booster (5) Electrolyte abnormality: Code(s): E87.8 - Other disorders of electrolyte and fluid balance, not elsewhere classified Status: Acute Assessment and Plan: Hyponatremia: Sodium levels improved Hypokalemia: Potassium slightly decreased, likely due to IV diuretic. Patient is on home potassium supplement 10 mEq p.o. daily. Potassium 3.3 at time of discharge and received 30 total mEq p.o. KCl supplementation. Expect levels to normalize with regular diet and resuming home medications. Hypomagnesemia: Improved. Continue home magnesium oxide supplement 400 mg daily (6) Chronic respiratory failure with hypoxia, on home O2 therapy: Code(s): J96.11 - Chronic respiratory failure with hypoxia; Z99.81 - Dependence on supplemental oxygen Status: Acute Assessment and Plan: At baseline on 3 L with activity and with rest and with O2 bleed in to CPAP at night Remained stable on his baseline oxygen requirement. (7) Congestive heart failure: Qualifiers: Heart failure chronicity: unspecified Heart failure type: unspecified Qualified Code(s): I50.9 - Heart failure, unspecified Code(s): I50.9 - Heart failure, unspecified Status: Acute Assessment and Plan: Clinically compensated and was euvolemic on exam Continue metoprolol On 04/09, patient had low SpO2 reading (felt to be inaccurate) but due to this CXR was repeated and show
[2021-04-10] MEDS: ERTAPENEM 1 GM/NS 50 ML 1 GM/50 ML BAG IVPB (16:10)
== END 2021-04-10 17:45 | DRG 659 ==
LOC: ANHED 15:54 → ANH3MEDSUR 18:02
PROVIDERS: Physician Assistant; Urology; Admitting Provider Family Medicine; Emergency Provider Emergency Medicine; PCP Family Medicine; Visit Provider Physician Assistant
PROC: 0T768DZ Dilation of Right Ureter with Intraluminal Device, Via Natural or Artificial Opening Endoscopic (ICD-10-PCS; CPT 52352; principal; 2021-04-05 17:30)
DX: N13.6 Pyonephrosis (principal); G93.41 Metabolic encephalopathy; J12.89 Other viral pneumonia; J96.11 Chronic respiratory failure with hypoxia; E87.1 Hypo-osmolality and hyponatremia; J44.0 Chronic obstructive pulmonary disease with (acute) lower respiratory infection; Z16.12 Extended spectrum beta lactamase (ESBL) resistance; U09.9 Post COVID-19 condition, unspecified; B96.20 Unspecified Escherichia coli [E. coli] as the cause of diseases classified elsewhere; R13.10 Dysphagia, unspecified; N40.0 Benign prostatic hyperplasia without lower urinary tract symptoms; G20 Parkinson's disease; F02.80 Dementia in other diseases classified elsewhere, unspecified severity, without behavioral disturbance, psychotic disturbance, mood disturbance, and anxiety; I48.91 Unspecified atrial fibrillation; E87.5 Hyperkalemia; E83.42 Hypomagnesemia; N18.32 Chronic kidney disease, stage 3b; I50.9 Heart failure, unspecified; E03.9 Hypothyroidism, unspecified; K21.9 Gastro-esophageal reflux disease without esophagitis; Z79.899 Other long term (current) drug therapy; I25.2 Old myocardial infarction; Z99.81 Dependence on supplemental oxygen; Z91.81 History of falling; Z98.42 Cataract extraction status, left eye; Z98.41 Cataract extraction status, right eye; Z96.1 Presence of intraocular lens
CPT/HCPCS: 36415; 36569; 70450; 71045; 74018; 74176; 74420; 80048; 80053; 81001; 82570; 82728; 83605; 83615; 83735; 83880; 83930; 83935; 84300; 84443; 85014; 85018; 85025; 85027; 85610; 85730; 86140; 87040; 87077; 87086; 87186; 92610; 93005; 94640; 94667; 96361; 96365; 96367; 97161; 97165; 97530; 97535; 99285; A9270; C1751; C1758; C1769; C2617; C9803; G0378; J0330; J1335; J1940; J2704; J3475; J7030; J7120; Q9966; U0003; U0005